=== PATIENT | female | born 1950 | race Caucasian/White ===

== ENCOUNTER 2024-09-24 02:46 | Day surgery (SDC) | payer MEDICARE, OTHER, SELFPAY ==
--- NOTE | 2024-09-18 13:58 | PM.IMHP ---
H&P: HPI History of Present Illness Date/Time: 09/18/24 13:58 Chief Complaint: urge incontinence Narrative: successful trial of sacral neuromodulation. Presents for permanent implantation Review of Systems Review of Systems: All systems reviewed & are unremarkable except as noted in HPI and below Exam Narrative: no acute distress normal breathing alert and oriented x3 Assessment and Plan Assessment and plan (1) Urge incontinence: Code(s): N39.41 - Urge incontinence Status: Acute Assessment and Plan: placement of sacral neurostimulator /InterStim
[2024-09-20 16:06] VITALS: BMI 42.3
--- NOTE | 2024-09-20 16:23 | PC.NURSE ---
Report to the Outpatient Waiting Room, entrance under the green pavilion located off [facility], at time ___6:45AM____ on date ___09/24/24____. Planned Procedure Time: ___8:45AM .? Time changes happen often and if your time is changed the preop area will call you the afternoon before. - You and your visitor will be asked to self-screen and do not enter if you have any COVID symptoms. Please call surgeon if you need to reschedule. - A mask is optional within the hospital at this time. Patients may have clear liquids (water, carbonated beverages, clear teas, apple juice) until 3 hours prior to surgery (5:45AM) with a maximum of 20 ounces. - No food from midnight until time of surgery and no smoking. This includes no chewing gum, candy or mints. Take only the following medications with a SIP of water on the morning of surgery: __AMLODIPINE, METOPROLOL, SERTRALINE, LEFLUNOMIDE DO NOT STOP ANY OF YOUR OTHER PRESCRIPTION MEDICATIONS PRIOR TO SURGERY EXCEPT THE FOLLOWING Medications to discontinue per physician NONE Date to take last dose Please no make-up, nail zimbabwean, hairspray, perfume, deodorant, or body powder the day of surgery.? No jewelry (including any body piercings) or valuables the day of surgery, leave them at home.? Please take a shower or bath the night before, or the morning of, surgery with an antibacterial soap.? Wear comfortable, loose fitting clothing.? Children are encouraged to wear pajamas. - Jewelry must be removed prior to entering the operating room.? Rings and piercings that are not removed may be cut off. - The hospital will not accept responsibility for valuables.? - Please leave all valuables, including medications, at home the day of surgery. If you are going home after surgery, a licensed sales warehouse driver must drive you home.? - NO public transportation without another adult if you receive anesthesia. - We recommend that an adult stay with you for 24 hours following discharge. - We also recommend that you do not drive, make important decision, drink alcoholic beverages, or take any drugs that were not prescribed by your health care provider for at least 24 hours after your discharge time. For Pediatric surgeries, we recommend two adults accompany the child home. Follow any additional instructions given to you from your surgeon. Telephone instructions given to ____PATIENT and asked if any additional questions and then verbalized understanding. Patient advised to call surgeon office or pre surgery nurse liaison [phone] if any additional questions.
--- NOTE | ~2024-09-24 | XR_ITS ---
EXAMINATION: XR fluoroscopy no charge DATE: 09/24/2024 09:10 INDICATION: Neuro stimulator implant insertion. TECHNIQUE: 2 intraoperative fluoroscopic views of the pelvis were obtained. I was not present. Fluoro scopy exposure time was 43 seconds. COMPARISON: None. FINDINGS: There is no side marker. There is an electrode in an S3 neural foramen. IMPRESSION: 1. Electrode in an S3 neural foramen. Reviewed, dictated and finalized at location B. [employer]
--- NOTE | 2024-09-24 04:36 | P.HP_ITS ---
H&P: HPI History of Present Illness Date/Time: 09/24/24 04:36 Chief Complaint: * UUI Narrative: urge incont. successful interstim trial Review of Systems Review of Systems: All systems reviewed & are unremarkable except as noted in HPI and below [facility] Social History Social History Smoking packs per day: 0.2 Smoking cigarettes per day: 4.0 Years smoked: 4 Smoking pack-years: 0.80 Smoking status: Former smoker Tobacco type: cigarettes Smoking end date: 03/01/75 Living arrangements: with family [facility] Spiritual care concerns: No Meds Home Medications and Allergies Home Medications ?Medication ?Instructions ?Recorded ?Confirmed ?Type alendronate 70 mg tablet 70 mg PO WEEKLY 09/20/24 09/20/24 History amlodipine 10 mg tablet 10 mg PO .MORNING 09/20/24 09/20/24 History atorvastatin 40 mg tablet 40 mg PO DAILY 09/20/24 09/20/24 History cetirizine 10 mg tablet 10 mg PO DAILY 09/20/24 09/20/24 History leflunomide 10 mg tablet 10 mg PO DAILY 09/20/24 09/20/24 History losartan 50 mg tablet 50 mg PO DAILY 09/20/24 09/20/24 History methotrexate sodium 2.5 mg tablet 20 mg PO WEEKLY 09/20/24 09/20/24 History metoprolol tartrate 25 mg tablet 25 mg PO BID 09/20/24 09/20/24 History nabumetone 750 mg tablet 750 mg PO BID 09/20/24 09/20/24 History oxybutynin chloride 10 mg 10 mg PO DAILY 09/20/24 09/20/24 History tablet,extended release 24 hr sertraline 50 mg tablet 50 mg PO BID 09/20/24 09/20/24 History trazodone 50 mg tablet 50 mg PO HS 09/20/24 09/20/24 History Allergies Allergy/AdvReac Type Severity Reaction Status Date / Time No Known Allergies Allergy Verified 09/20/24 15:56 Exam Narrative: NAD A+O x3 normal breathing Assessment and Plan Assessment and plan (1) Urge incontinence: Code(s): N39.41 - Urge incontinence Status: Acute Assessment and Plan: interstim implant
--- NOTE | 2024-09-24 04:38 | WPDHPUPDATE1 ---
History and Physical Update Update Date/Time: 09/24/24 04:38 History and Physical has been reviewed, including an updated exam of the patient. There are NO changes in the patient's condition. Risks, benefits, and alternatives have been discussed and questions answered. Patient agrees to proceed with procedure.
--- OUTSIDE RECORDS SUMMARY | 2024-09-24 06:30 | XMS_ITS ---
Author Organization Unknown Address [address], [place] [phone] Phone Care Team Providers Care Ethylene Plant Operator Name Role Phone EUSEBIA MCGINNIS Attending Unavailable Social History Type Status Start Date End Date Code Code Syst em Smoking History Never smoker (Never Smoked) 491988855 SNOMED CT Sex Female Sexual Orientation Straight or Heterosexual 49773273 SNOMED CT Medications Medication Start Date End Date Route Frequency Dose Code Code System Medication Instructions Home Meds traZODone hydrochloride 50MG Oral Tablet 08/07/2018 Unknown Daily 1 TABLET 880350 RxNorm 1 TABLET Daily Oxybutynin 5MG Oral Tablet 05/22/2020 Unknown ORAL Daily 1 TABLET 959377 RxNorm 1 TABLET ORAL Daily Methotrexate Sodium 2.5MG Oral Tablet 06/19/2020 08/06/20 21 By mouth Once a week 8 TABLET 785138 RxNorm TAKE 8 TABLETS ONCE A WEEK Leflunomide 20MG Oral Tablet 08/07/2020 08/06/20 21 By mouth Daily 1 TABLET 318724 RxNorm TAKE 1 TABLET DAILY Nabumetone 750MG Oral Tablet 10/23/2020 Unknown By Mouth Twice a day 1 TABLET 441708 RxNorm 1 TABLET By Mouth Twice a day Atorvastatin Calcium 40MG Oral Tablet 02/05/2021 Unknown By Mouth Daily 1 TABLET 446025 RxNorm 1 TABLET By Mouth Daily amLODIPine Besylate 5MG Oral Tablet 02/05/2021 Unknown By Mouth Daily 1 TABLET 003158 RxNorm 1 TABLET By Mouth Daily Alendronate Sodium 70MG Oral Tablet 02/05/2021 Unknown Daily 1 TABLET 869141 RxNorm 1 TABLET Daily Sertraline HCl 100MG Oral Tablet 02/05/2021 Unknown Daily 1 TABLET 886522 RxNorm 1 TABLET Daily Folic Acid 1MG Oral Tablet 02/13/2021 02/16/20 22 By mouth Daily 1 TABLET 290388 RxNorm TAKE 1 TABLET DAILY Orencia Pre-Filled Syringe 125MG/1ML Subcutaneous Solution 05/15/2021 01/20/20 22 SUBCUT ANEOUS ONCE WEEKLY 125 MILLIGRAMS 2544664 RxNorm INJECT 125 MILLIGRAMS SUBCUTANEOU S ONCE WEEKLY Methotrexate Sodium 2.5MG Oral Tablet 08/06/2021 02/16/20 22 By mouth Once a week 8 TABLET 031065 RxNorm TAKE 8 TABLETS ONCE A WEEK Leflunomide 20MG Oral Tablet 08/06/2021 02/16/20 22 By mouth Daily 1 TABLET 710484 RxNorm TAKE 1 TABLET DAILY Folic Acid 1MG Oral Tablet 02/15/2022 09/09/19 23 By mouth Daily 1 TABLET 803371 RxNorm TAKE 1 TABLET DAILY Leflunomide 20MG Oral Tablet 02/15/2022 05/13/20 22 By mouth Daily 1 TABLET 471905 RxNorm TAKE 1 TABLET DAILY Methotrexate Sodium 2.5MG Oral Tablet 02/15/2022 09/09/19 23 By mouth Once a week 8 TABLET 736118 RxNorm TAKE 8 TABLETS ONCE A WEEK Leflunomide 10MG Oral Tablet 05/13/2022 09/09/19 23 By Mouth Daily 1 TABLET 788820 RxNorm 1 TABLET By Mouth Daily Leflunomide 10MG Oral Tablet 09/09/2022 02/15/20 23 By Mouth Daily 2 TABLET 186890 RxNorm 2 TABLET By Mouth Daily Methotrexate Sodium 2.5MG Oral Tablet 09/09/2022 12/01/19 24 By mouth Once a week 8 TABLET 809645 RxNorm TAKE 8 TABLETS ONCE A WEEK Folic Acid 1MG Oral Tablet 09/09/2022 12/16/19 24 By mouth Daily 1 TABLET 125684 RxNorm TAKE 1 TABLET DAILY predniSONE 5MG Oral Tablet 09/09/2022 12/01/19 24 By Mouth 679359 RxNorm 4 TABLET By Mouth for 3 days3 TABLET By Mouth for 3 days2 TABLET By Mouth for 3 days1 TABLET By Mouth for 3 days Leflunomide 10MG Oral Tablet 02/14/2023 09/29/19 24 By Mouth Daily 2 TABLET 248085 RxNorm TAKE 2 TABLETS DAILY ( DOSAGE CHANGE ) Leflunomide 10MG Oral Tablet 02/14/2023 08/02/20 23 By Mouth Daily 2 TABLET 20520404 RxNorm TAKE 2 TABLETS DAILY ( DOSAGE CHANGE ) Leflunomide 10MG Oral Tablet 09/29/2023 12/01/19 24 By Mouth Daily 2 TABLET 877945 RxNorm TAKE 2 TABLETS DAILY Losartan Potassium 50MG Oral Tablet 12/01/2023 Unknown By Mouth As Directed 1 TABLET 929409 RxNorm 1 TABLET By Mouth As Directed Cetirizine 10MG Oral Tablet 12/01/2023 Unknown By Mouth As Directed 1 TABLET 5004949 RxNorm 1 TABLET By Mouth As Directed Vitamin D3 250 MCG Oral Tablet 12/01/2023 Unknown By Mouth As Directed 1 TABLET RxNorm 1 TABLET By Mouth As Directed Fish Oil 1200 MG Oral Capsule, Liquid Filled 12/01/2023 Unknown By Mouth As Directed 1 CAPSULE 275206 RxNorm 1 CAPSULE By Mouth As Directed Leflunomide 10MG Oral Tablet 12/01/2023 Unknown By Mouth Daily 1 TABLET 197659 RxNorm 1 TABLET By Mouth Daily Methotrexate Sodium 2.5MG Oral Tablet 12/01/2023 06/21/20 24 By mouth Once a week 8 TABLET 556079 RxNorm TAKE 8 TABLETS ONCE A WEEK Folic Acid 1MG Oral Tablet 12/16/2023 08/30/20 24 By mouth Daily 1 TABLET 321824 RxNorm TAKE 1 TABLET DAILY Methotrexate Sodium 2.5MG Oral Tablet 06/21/2024 Unknown By mouth Once a week 8 TABLET 623361 RxNorm TAKE 8 TABLETS ONCE A WEEK Folic Acid 1MG Oral Tablet 08/30/2024 Unknown By mouth Daily 1 TABLET 251665 RxNorm TAKE 1 TABLET DAILY Assessment You had the following problems: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 If you have left the hospital and have any questions, please contact your primary care physician. Reason For Referral No Data Found Problems Problem Start Date Resolved Date Status Code Code System RHEUMATOID ARTHRITIS active 42357961 SNOMED-CT OA active 572814006 SNOMED-CT RHEUMATOID ARTHRITIS WITH RHEUMATOID FACTOR, UNSPECIFIED active 444975556 SNOMED-CT CANCER OF THE BREAST 12/06/2016 resolved 47541273 9 SNOMED-CT PEPTIC ULCERS 12/06/2016 resolved 43767206 SNOME D-CT HYPERLIPIDEMIA 12/06/2016 resolved 93637232 SNOM ED-CT Allergies and Adverse Reactions Allergy Substance Reaction Severity Start Date Concern Status Co de Code System No Known Drug Allergies Active 897524786 SNOMED-CT Plan of Treatment Established Patient 15 10/11/2024 Encounters Encounter Diagnosis Start Date Code Code Sys tem Rheumatoid arthritis 05/31/2021 00017682 SNOMED- CT Personal Care Team Section Performer Name Performer Role Active Date Inactive Da jennifer
--- OUTSIDE RECORDS SUMMARY | 2024-09-24 06:30 | XMS_ITS ---
Author Organization Unknown Address [address], [place] [phone] Phone Care Team Providers Care Chief Minister Name Role Phone EUSEBIA MCGINNIS Attending Unavailable Social History Type Status Start Date End Date Code Code Syst em Smoking History Never smoker (Never Smoked) 804977966 SNOMED CT Sex Female Sexual Orientation Straight or Heterosexual 15688056 SNOMED CT Medications Medication Start Date End Date Route Frequency Dose Code Code System Medication Instructions Home Meds traZODone hydrochloride 50MG Oral Tablet 08/07/2018 Unknown Daily 1 TABLET 269015 RxNorm 1 TABLET Daily Oxybutynin 5MG Oral Tablet 05/22/2020 Unknown ORAL Daily 1 TABLET 119767 RxNorm 1 TABLET ORAL Daily Nabumetone 750MG Oral Tablet 10/23/2020 Unknown By Mouth Twice a day 1 TABLET 651843 RxNorm 1 TABLET By Mouth Twice a day Atorvastatin Calcium 40MG Oral Tablet 02/05/2021 Unknown By Mouth Daily 1 TABLET 066878 RxNorm 1 TABLET By Mouth Daily amLODIPine Besylate 5MG Oral Tablet 02/05/2021 Unknown By Mouth Daily 1 TABLET 270079 RxNorm 1 TABLET By Mouth Daily Alendronate Sodium 70MG Oral Tablet 02/05/2021 Unknown Daily 1 TABLET 137654 RxNorm 1 TABLET Daily Sertraline HCl 100MG Oral Tablet 02/05/2021 Unknown Daily 1 TABLET 932447 RxNorm 1 TABLET Daily Losartan Potassium 50MG Oral Tablet 12/01/2023 Unknown By Mouth As Directed 1 TABLET 434952 RxNorm 1 TABLET By Mouth As Directed Cetirizine 10MG Oral Tablet 12/01/2023 Unknown By Mouth As Directed 1 TABLET 5942483 RxNorm 1 TABLET By Mouth As Directed Vitamin D3 250 MCG Oral Tablet 12/01/2023 Unknown By Mouth As Directed 1 TABLET RxNorm 1 TABLET By Mouth As Directed Fish Oil 1200 MG Oral Capsule, Liquid Filled 12/01/2023 Unknown By Mouth As Directed 1 CAPSULE 116662 RxNorm 1 CAPSULE By Mouth As Directed Leflunomide 10MG Oral Tablet 12/01/2023 Unknown By Mouth Daily 1 TABLET 901440 RxNorm 1 TABLET By Mouth Daily Methotrexate Sodium 2.5MG Oral Tablet 12/01/2023 4 By mouth Once a week 8 TABLET 226457 RxNorm TAKE 8 TABLETS ONCE A WEEK Folic Acid 1MG Oral Tablet 12/16/2023 4 By mouth Daily 1 TABLET 411091 RxNorm TAKE 1 TABLET DAILY Methotrexate Sodium 2.5MG Oral Tablet 06/21/2024 Unknown By mouth Once a week 8 TABLET 251352 RxNorm TAKE 8 TABLETS ONCE A WEEK Folic Acid 1MG Oral Tablet 08/30/2024 Unknown By mouth Daily 1 TABLET 944089 RxNorm TAKE 1 TABLET DAILY Assessment You [...] Status Code Code System RHEUMATOID ARTHRITIS active 85022073 SNOMED-CT OA active 437030632 SNOMED-CT RHEUMATOID ARTHRITIS WITH RHEUMATOID FACTOR, UNSPECIFIED active 679991520 SNOMED-CT CANCER OF THE BREAST 12/06/2016 resolved 90713434 9 SNOMED-CT PEPTIC ULCERS 12/06/2016 resolved 53640309 SNOME D-CT HYPERLIPIDEMIA 12/06/2016 resolved 36874142 SNOM ED-CT Allergies and Adverse Reactions Allergy Substance Reaction Severity Start Date Concern Status Co de Code System No Known Drug Allergies Active 379617927 SNOMED-CT Plan of Treatment Established Patient 15 10/11/2024 Encounters Encounter Diagnosis Start Date Code Code Sys tem Rheumatoid arthritis 02/13/2024 32613445 SNOMED- CT Personal Care Team Section Performer Name Performer Role Active Date Inactive Yaakov rodriguez
--- OUTSIDE RECORDS SUMMARY | 2024-09-24 06:30 | XMS_ITS ---
Author Organization Unknown Address [address] [place] [phone] Phone Care Team Providers Care Protection Specialist Name Role Phone EUSEBIA MCGINNIS Attending Unavailable DEXTER TSAI Primary Unavailable Immunization Immunization Date Status Additional Notes Code Code System Influenza, split virus, trivalent, preservative 06/01/2014 Completed 141 CVX MMR 06/12/1993 Completed 03 CVX Pneumococcal conjugate PCV 13 10/04/2015 Completed 133 CVX Tdap 09/01/2008 Completed 115 CVX COVID-19, mRNA, LNP-S, PF, 3 0 mcg/0.3 mL dose 11/23/2020 Completed 208 CVX COVID-19, mRNA, LNP-S, PF, 3 0 mcg/0.3 mL dose 11/02/2020 Completed 208 CVX Influenza, adjuvanted, quadrivalent, PF 06/15/2020 Completed 205 CVX Influenza, high-dose, quadrivalent, PF 06/24/2023 Completed 197 CVX Influenza, high-dose, quadrivalent, PF 06/22/2022 Completed 197 CVX Influenza, high-dose, quadrivalent, PF 05/28/2021 Completed 197 CVX zoster recombinant 12/28/2018 Completed 187 CVX zoster recombinant 09/22/2018 Completed 187 CVX Influenza, split virus, quadrivalent, PF 06/01/2012 Completed 150 CVX Influenza, split virus, trivalent, preservative 06/20/2017 Completed 141 CVX Influenza, split virus, trivalent, preservative 06/01/2013 Completed 141 CVX Influenza, split virus, trivalent, preservative 06/01/2016 Completed 141 CVX Influenza, high-dose, trivalent, PF 05/19/2024 Completed 135 CVX Influenza, high-dose, trivalent, PF 06/07/2019 Completed 135 CVX Influenza, high-dose, trivalent, PF 06/15/2018 Completed 135 CVX zoster live 05/19/2012 Completed 121 CVX Tdap 01/08/2021 Completed 115 CVX Tdap 12/30/2020 Completed 115 CVX COVID-19, mRNA, LNP-S, bivalent, PF, 30 mcg/0.3 mL dose 06/22/2022 Completed 300 CVX Pneumococcal conjugate PCV20 , polysaccharide [id number] conjugate, adjuvant, PF 05/09/2022 Completed 216 CVX COVID-19, mRNA, LNP-S, PF, 3 0 mcg/0.3 mL dose 12/20/2021 Completed 208 CVX COVID-19, mRNA, LNP-S, PF, 3 0 mcg/0.3 mL dose 06/25/2021 Completed 208 CVX influenza, unspecified formulation 06/22/2019 Completed 88 CVX pneumococcal polysaccharide PPV23 07/21/2018 Completed 33 CVX RSV, recombinant, protein subunit RSVpreF, adjuvant reconstituted, 0.5 mL, PF 03/23/2024 Completed 303 CV X Social History Type Status Start Date End Date Code Code Syst em Smoking History Never smoker (Never Smoked) 878965665 SNOMED CT Smoking History Former smoker 12/06/197040[address] Sex Female Sexual Orientation Straight or Heterosexual 56085567 SNOMED CT Vital Signs Vital Sign Value Unit [facility] Value [facility] Unit Date/Time Recent/Initial? Code Code System Body Mass Index 41.88 kg/m2 02/16/2024 08:48 Initial 00134 -5 LOINC Systolic Blood Pressure 144 mm[Hg] 02/16/2024 08:48 Initial 8480- 6 LOINC Diastolic Blood Pressure 86 mm[Hg] 02/16/2024 08:48 Initial 8462- 4 LOINC Body Surface Area 2.13 m2 02/16/2024 08:48 Initial 3140- 1 LOINC Height 157.480 0 cm 62.00 in 02/16/2024 08:48 Initial 8302- 2 LOINC O2 Saturation 95 % 2023 08:48 Initial 23588 -5 LOINC Pulse 80.0 /min 02/16/2024 08:48 Initial 8867- 4 LOINC Temperature 36.6 Catarina 97.9 F 02/16/20 08:48 Initial 8310- 5 LOINC Weight 103.87 kg 229.00 lbs 02/16/2024 08:48 Initial 46886 -7 [facility] Medications Medication Start Date End Date Route Frequency Dose Code Code System Medication Instructions Home Meds traZODone hydrochloride 50MG Oral Tablet 08/07/2018 Unknown Daily 1 TABLET 565477 RxNorm 1 TABLET Daily Oxybutynin 5MG Oral Tablet 05/22/2020 Unknown ORAL Daily 1 TABLET 085280 RxNorm 1 TABLET ORAL Daily Nabumetone 750MG Oral Tablet 10/23/2020 Unknown By Mouth Twice a day 1 TABLET 863484 RxNorm 1 TABLET By Mouth Twice a day Atorvastatin Calcium 40MG Oral Tablet 02/05/2021 Unknown By Mouth Daily 1 TABLET 827640 RxNorm 1 TABLET By Mouth Daily amLODIPine Besylate 5MG Oral Tablet 02/05/2021 Unknown By Mouth Daily 1 TABLET 507183 RxNorm 1 TABLET By Mouth Daily Alendronate Sodium 70MG Oral Tablet 02/05/2021 Unknown Daily 1 TABLET 768580 RxNorm 1 TABLET Daily Sertraline HCl 100MG Oral Tablet 02/05/2021 Unknown Daily 1 TABLET 017065 RxNorm 1 TABLET Daily Losartan Potassium 50MG Oral Tablet 12/01/2023 Unknown By Mouth As Directed 1 TABLET 390591 RxNorm 1 TABLET By Mouth As Directed Cetirizine 10MG Oral Tablet 12/01/2023 Unknown By Mouth As Directed 1 TABLET 6442016 RxNorm 1 TABLET By Mouth As Directed Vitamin D3 250 MCG Oral Tablet 12/01/2023 Unknown By Mouth As Directed 1 TABLET RxNorm 1 TABLET By Mouth As Directed Fish Oil 1200 MG Oral Capsule, Liquid Filled 12/01/2023 Unknown By Mouth As Directed 1 CAPSULE 572013 RxNorm 1 CAPSULE By Mouth As Directed Leflunomide 10MG Oral Tablet 12/01/2023 Unknown By Mouth Daily 1 TABLET 765568 RxNorm 1 TABLET By Mouth Daily Methotrexate Sodium 2.5MG Oral Tablet 12/01/2023 4 By mouth Once a week 8 TABLET 970909 RxNorm TAKE 8 TABLETS ONCE A WEEK Folic Acid 1MG Oral Tablet 12/16/2023 4 By mouth Daily 1 TABLET 229321 RxNorm TAKE 1 TABLET DAILY Methotrexate Sodium 2.5MG Oral Tablet 06/21/2024 Unknown By mouth Once a week 8 TABLET 241205 RxNorm TAKE 8 TABLETS ONCE A WEEK Folic Acid 1MG Oral Tablet 08/30/2024 Unknown By mouth Daily 1 TABLET 969967 RxNorm TAKE 1 TABLET DAILY Assessment You had the following problems: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 Rheumatoid Arthritis - mod to severe at baseline - off Orencia d/t recurrent skin cancers. - on MTX 20mg per week + Arava 20mg per day - we decreased arava to 10mg/d - due to increased watcher [employer] long goods hepatotoxic risk with this combination - tolerating well so far - labs required q3m, no toxicity seen - seeing heme for elevated wbc - inflammation remains elevated but not a candidate for biologics d/t skin CA - Referral to orthopedics for L hand tenosynovitis 2. Knee DJD - s/p L TKR January 2023 RTC 3 -4 mos. Labs q3m. All of the patient's questions and concerns were addressed. Hospital Discharge Instructions Should you have any questions prior to discharge, please contact a member of your healthcare team. If you have left the hospital and have any questions, please contact your primary care physician. Reason For Referral No Data Found Problems Problem Start Date Resolved Date Status Code Code System RHEUMATOID ARTHRITIS active 81142094 SNOMED-CT OA active 283665161 SNOMED-CT RHEUMATOID ARTHRITIS WITH RHEUMATOID FACTOR, UNSPECIFIED active 449618084 SNOMED-CT CANCER OF THE BREAST 12/06/2016 resolved 48739960 9 SNOMED-CT PEPTIC ULCERS 12/06/2016 resolved 88118453 SNOME D-CT HYPERLIPIDEMIA 12/06/2016 resolved 74392265 SNOM ED-CT Allergies and Adverse Reactions Allergy Substance Reaction Severity Start Date Concern Status Co de Code System No Known Drug Allergies Active 783217168 SNOMED-CT Plan of Treatment Established Patient 15 10/11/2024 Encounters Encounter Diagnosis Start Date Code Code Sys tem Rheumatoid arthritis 02/16/2024 00976671 SNOMED- CT Personal Care Team Section Performer Name Performer Role Active Date Inactive Da jennifer
--- OUTSIDE RECORDS SUMMARY | 2024-09-24 06:30 | XMS_ITS | Data Portability ---
Author Organization [place] - [facility], [facility] Address [address] [place] [address] Care Team Providers Care Labor Relations Analyst Name Role Phone THA CARPIO Primary Care Provider THA CARPIO Referring Provider QAMAR YSUUF Jig Mill Operator GEORGINA KERR Net Developer [facility] Therapeutic Riding Instructor [phone] MIGDALIA LAWS Yarn Inspector NELLIE BECK Primary Care Provider [phone] ADRIANA ROBBINS Process Manager Assessment Encounter Date Assessment Date Assessment LastModified by Organization Details LastModified Time 09/18/2023 09/18/2023 I attest that either myself or a member of my physician group provided supervision of the services rendered. Either myself or a member of my physician group was available in the office suite to render assistance, if needed. [email or web address] Not available 09/18/2023 10:13:28 Plan of Treatment Reminders Order Date Submit Date Provider Last Modified By Organization Details Last Modified Time Details Appointments EST 20 2024 10:40A Justin BECK MD Not available Not available Not available Lab HbA1c (hemoglob in A1c), blood 2023 024 [facility] Registration Dept[facility] [address] [place] [address], [address], 11/25/2023 11:51:47 lipid panel w/ direct LDL, serum 2023 024 [facility] Registration Dept[facility] [address] [facility], [place], [address], 11/25/2023 11:51:27 vitamin D, 25-hydrox y, total, serum 2023 024 [facility] Registration [facility] [address] [facility], [place], [address], 11/26/2023 07:11:49 TSH, serum, reflex free T4 2023 024 [facility] Registration Dept., [address] [facility], [place], [address], 11/25/2023 10:10:43 CMP, serum or plasma 2023 024 [facility] Registration Dept[facility] [address] [place], [address], 11/25/2023 11:51:17 microalbu min/creat inine, mass ratio, urine 2023 024 [facility] Registration Dept., [address] [place], [address], 11/25/2023 10:10:43 HbA1c (hemoglob in A1c), blood 2023 024 [facility] Registration Dept[facility] [address] [place], [address], 05/19/2024 12:06:26 HbA1c (hemoglob in A1c), blood 2023 025 [email or web address] [facility] Registration Dept., [address] [facility], [place], [address], 05/19/2024 09:58:33 CMP, serum or plasma 2023 024 [facility] Registration Dept[facility] [address] [facility], [place], [address], 05/19/2024 12:44:03 microalbu min/creat inine, mass ratio, urine 2023 024 [facility] Registration Dept., [address] [place], [address], 05/19/2024 09:58:20 CMP, serum or plasma [address] Registration Dept[address] [place], [address], 05/19/2024 09:58:33 lipid panel w/ direct LDL, serum 2023 024 [facility] Registration Dept[facility] [address] [place] [address], [address], 05/19/2024 13:38:54 lipid panel w/ direct LDL, serum [address] Registration Dept[address] [place] [address], [address], 05/19/2024 09:58:33 TSH, serum, reflex free T4 2023 024 [facility] Registration Dept., [address] [place] [address], [address], 05/19/2024 09:58:20 Referral urologist referral 2023 024 LUCIAN Butcher MD, [address], [place] [address] [place] [address], [id number], 05/13/2024 12:09:41 Procedures None recorded. Surgeries None recorded. Imaging MAMMO, screening , digital, bilateral 2023 024 [email or web address] [facility] Registration Dept., [address] [place] [address], [address], 12/17/2023 08:37:45 MAMMO, screening , tomosynth esis, bilateral , w/ CAD 2023 025 [email or web address] 1 [facility] Registration Dept., [address] [place] [address], [address], 11/25/2023 11:38:45 Medication Orders oxybutyni n chloride ER 10 mg tablet,ex tended release 24 hr 2022 023 [facility], [address] [place] [address], [address], 02/12/2023 11:52:55 atorvasta tin 40 mg tablet 2023 024 [facility], [address] [place] [address], 06[address], 09/18/2023 12:15:00 losartan 50 mg tablet 2023 024 [id number], [address], [place], [id number], 11/25/2023 10:07:47 fluticaso ne propionat e 50 mcg/actua tion nasal spray,ute pension 2023 024 [email or web address] 77 [facility], [address] [place] [address], [address], 05/19/2024 09:09:28 cetirizin e 10 mg tablet 2023 024 [facility], [address] [place] [address], 07[address], 11/25/2023 10:07:41 losartan 50 mg tablet 2023 024 [id number], [address], [place], [id number], 05/19/2024 09:41:07 Patient TargetsNo targets recorded. Patient Instructions Encounter Date Encounter Id Patient Instructions Last Modified By Organization Details Last Modified Time 09/18/2023 [id number] depression screening* Not available 09/18/2023 12:15:00 alcohol misuse* Not available 09/18/2023 12:15:00 body mass index: care instructions Not available 09/18/2023 12:15:00 body mass index information Not available 09/18/2023 12:15:00 multi-dimensiona l health assessment questionnaire* Not available 09/18/2023 12:15:00 advance care planning: care instructions Not available 09/18/2023 12:15:00 advance directiv es: care instructions Not available 09/18/2023 12:15:00 care plan* Not available 09/18 12:15:00 Personalized Hea lt Plan and Screening Recommendations Advance Directives - Do you have one? Yes Advance Directives - Do we have your advance directive on file in your health record? Primary Prevention/Interven tion (prevents or decreases the chance of common diseases from occurring) Smoking Risk: Non Smoker Alcohol Misuse Screening: Negative Weight: Appropriate Overwei ght continue your current weight loss efforts try to lose 5% of your body weight try to lose 10% of your body weight Physical activity: minimum of 10-20 minutes of activity that causes mild breathlessness/day minimum of 20-30 minutes activity that causes mild breathlessness/day Nutrition: Good Average Refer to attached handout Heart-Healthy Diet: After Your Visit Fall Risk (screened today): Low Refer to attached handout Preventing Falls: After your Visit Vaccines Pneumococcal: Ordered Recommended today Recommended today, but you have declined No further needed Influenza: Chronic Disease Risks Stroke: Low Risk Intermediate Risk I have no recommendations Act sameera diagnosis, Continue current treatment plan Heart Attack: Low risk Intermediate Risk I have no recommendations Act sameera diagnosis, Continue current treatment plan Clogging of the Arteries: Low risk Intermediate Risk I have no recommendations Act sameera diagnosis, Continue current treatment plan Diabetes: Low Risk Intermediate Risk I have no recommendations Ref er to attached handout ? P re-diabetes: After Your Visit? Drastica lly limit sugar and products made with any type of flour (bread, pasta, cereal, cookies, crackers, etc.) Secondary Prevention/Interven tion (detects treatable diseases before they may cause symptoms, disability, or ) Breast Cancer Screening with mammogram: Your next mammogram: Ordered Cervical/Uterine/Ov emiliano Cancer Screening: Osteoporosis Screening: Date Screening Last Performed: 09/12/22 Colon Cancer Screening: Colonoscopy Date Screening Last Performed: 12/08/15 Eye Disease Screening: Ordered Recommended today Dementia Risk: Low I have no recommendations Depression Screening: Negative [email or web address] Not available 09/18/2023 11:23:21 HRA reviewed felipa akbar patient, preventative screening scheduled provided to patient [email or web address] Not available 09/18/2023 10:15:41 11/25/2023 [id number] -- STOP lisinopril 20 mg twice daily as it may be making you cough more -- I ordered losartan 50 mg daily for blood pressure instead of lisinopril; start with 1 tab daily; if after a few days or week your BP is still too high, over 140/90 then increase to 2 tabs (100 mg) daily (or take a 50 mg twice daily) -- I ordered a nose spray and allergy pill for you to try as well -- consider follow up with your lung doctor -- labs will be done today -- try MiraLax powder daily for constipation -- follow up with me in 3-4 weeks to follow up on your blood pressure [email or web address] Not available 11/25/2023 10:10:09 Reason for Referral Urologist Referral for Urina ry incontinence Referring Physician: Nellie Beck, Family Medicine, Encounter Date: 11/25/2023 Results Created Date Observation Date Name Description Value Unit Range Abnormal Flag Note LastModifiedBy Organization Detail LastModifiedTime 07/23/20 23 07/23/2023 COMP METAB OLIC PNL glucose 110 mg/dL 74-106 high Not Available [facility] [address] [place] [address], [id number], 07/23/2023 11:22:46 07/23/20 23 07/23/2023 COMP METAB OLIC PNL BUN 13 mg/dL 7-18 Not Available [facility] [address] [place] [address], [address], 07/23/2023 11:22:46 07/23/20 23 07/23/2023 COMP METAB OLIC PNL sodium 137 mmol/ L 136-14 5 Not Available [facility] [address] [place] [address], 9[address], 07/23/2023 11:22:46 07/23/20 23 07/23/2023 COMP METAB OLIC PNL K 4.2 mmol/ L 3.5-5. 1 Not Available [facility] [address] [place] [address] [place], [address], 07/23/2023 11:22:46 07/23/20 23 07/23/2023 COMP METAB OLIC PNL chloride 102 mmol/ L 98-107 Not Available [facility] [address] [place] [address], [address], 07/23/2023 11:22:46 07/23/20 23 07/23/2023 COMP METAB OLIC PNL tot CO2 25 mmol/ L 21.0-3 2.0 Not Available [facility] [address] [place] [address], [address]79[address], 07/23/2023 11:22:46 07/23/20 23 07/23/2023 COMP METAB OLIC PNL calcium 9.7 mg/dL 8.5-10 .1 Not Available [facility] [address] [place] [address], [address], 07/23/2023 11:22:46 07/23/20 23 07/23/2023 COMP METAB OLIC PNL creatinine 0.6 mg/dL 0.6-1. 0 Not Available [facility] [address] [place] [address], 58483, 07/23/2023 11:22:46 07/23/20 23 07/23/2023 COMP METAB OLIC PNL alkaline phos 74 U/L 46-116 Not Available [facility] [address] [place] [address], [address], 07/23/2023 11:22:46 07/23/20 23 07/23/2023 COMP METAB OLIC PNL AST (SGOT) 13 U/L 15-37 low Not Available [facility] [address] [place] [address], [address], 07/23/2023 11:22:46 07/23/20 23 07/23/2023 COMP METAB OLIC PNL albumin 3.1 g/dL 3.4-5. 0 low Not Available [facility] [address] [place] [address], [place], [address], 07/23/2023 11:22:46 07/23/20 23 07/23/2023 COMP METAB OLIC PNL globulin 4.2 2.0-4. 8 Not Available [facility] [address] [place] [address], [place], [address], 07/23/2023 11:22:46 07/23/20 23 07/23/2023 COMP METAB OLIC PNL total protein 7.3 g/dL 6.4-8. 2 Not Available [facility] [address] [place] [address], [place], [address], 07/23/2023 11:22:46 07/23/20 23 07/23/2023 COMP METAB OLIC PNL A/G ratio 0.7 0.7-3. 5 Not Available [facility] [address] [place] [address], [place], [address], 07/23/2023 11:22:46 07/23/20 23 07/23/2023 COMP METAB OLIC PNL ALT (SGPT) 18 U/L 14-59 Not Available [facility] [address] [place] [address], [address], 07/23/2023 11:22:46 07/23/20 23 07/23/2023 COMP METAB OLIC PNL total bilirubin 0.3 mg/dL 0.2-1. 1 Not Available [facility] [address] [place] [address], [place], [address], 07/23/2023 11:22:46 07/23/20 23 07/23/2023 COMP METAB OLIC PNL GFR >60 60- Refer ence Range : [place] ge GFR Healt hy Adult : >60 mL/mi n/1.7 3 m2 Chron ic Kidne y Disea se: 15-60 mL/mi n/1.7 3 m2 Kidne y Failu re: <15/m L/min /1.73 m2 www.n iddk. nih.g ov MDRD study equat ion hasn' t been valid ated in child crista <18 yrs of age, pregn ant women , the elder ly >85 yrs of age, or in some racia l or ethni c subgr oups, suc as Hispa nics. Outsi de the valid ated nora eters , estim ated GFR is less accur ate requi ring clini archie judgm ent on a case by case basis . Clini archie inter preta tion for other races and ages must be made by the clini augustine . Futhe rmore , any of th e limit ation s with the use of serum creat inine relat ed to nutri isiah l statu s o r medic ation usage hasn' t accou nted for the MDRD Study equat ion. For perso ns < 18 yrs of age, a pedia tric GFR calcu lator can be locat ed on the [facility] websi te: https ://benita w.kid tae.o rg/pr ofess ional s/kdo qi/gf r_cal culat or Not Available [facility] [address] [place] [address], [address], 07/23/2023 11:22:46 07/23/20 23 07/23/2023 COMP METAB OLIC PNL agap 14.0 mmol/ L 5.0-19 .0 Not Available [facility] [address] [place] [address], 959[address], 07/23/2023 11:22:46 07/23/20 23 07/23/2023 C-JARED CTIVE PROTE IN QUANT CRP quantatative 0.8 mg/dL 0.5-0. 9 Not Available [address], [address], 07/23/2023 11:22:55 07/23/20 23 07/23/2023 CBC WITH AUTOM ATED DIFF WBC 11.0 10 4.0-10 .0 high Not Available [address], [address], 07/23/2023 11:26:03 07/23/20 23 07/23/2023 CBC WITH AUTOM ATED DIFF RBC 4.44 10 3.90-5 .22 Not Available [facility] [address] [place] [address], 59105, 07/23/2023 11:26:03 07/23/20 23 07/23/2023 CBC WITH AUTOM ATED DIFF HGB 13.3 g/dL 11.2-1 5.7 Not Available [facility] [address] [place] [address], 26525, 07/23/2023 11:26:03 07/23/20 23 07/23/2023 CBC WITH AUTOM ATED DIFF HCT 42.2 % 34.1-4 4.9 Not Available [facility] [address] [place] [address], 00887, 07/23/2023 11:26:03 07/23/20 23 07/23/2023 CBC WITH AUTOM ATED DIFF MCV 95.0 fL 82.0-9 9.0 Not Available [facility] [address] [place] [address], 21474, 07/23/2023 11:26:03 07/23/20 23 07/23/2023 CBC WITH AUTOM ATED DIFF MCH 30.0 pg 29.0-3 4.5 Not Available [facility] [address] [place] [address], 61304, 07/23/2023 11:26:03 07/23/20 23 07/23/2023 CBC WITH AUTOM ATED DIFF MCHC 31.5 g/dL 32.5-3 5.5 low Not Available [facility] [address] [place] [address], 52547, 07/23/2023 11:26:03 07/23/20 23 07/23/2023 CBC WITH AUTOM ATED DIFF RDW 14.7 11.5-1 4.5 high Not Available [facility] [address] [place] [address], 21931, 07/23/2023 11:26:03 07/23/20 23 07/23/2023 CBC WITH AUTOM ATED DIFF platelet 232 10 180-37 0 Not Available [facility] [address] [place] [address], 10639, 07/23/2023 11:26:03 07/23/20 23 07/23/2023 CBC WITH AUTOM ATED DIFF MPV 10.60 fL 9.0-12 .4 Not Available [facility] [address] [place] [address], 86246, 07/23/2023 11:26:03 07/23/20 23 07/23/2023 CBC WITH AUTOM ATED DIFF dominic% 71.5 % 34.0-7 1.1 high Not Available [facility] [address] [place] [address], 45739, 07/23/2023 11:26:03 07/23/20 23 07/23/2023 CBC WITH AUTOM ATED DIFF lym% 13.4 % 19-52 low Not Available [facility] [address] [place] [address], 23908, 07/23/2023 11:26:03 07/23/20 23 07/23/2023 CBC WITH AUTOM ATED DIFF mon% 9.60 % 5-13 Not Available [facility] [address] [place] [address], 78611, 07/23/2023 11:26:03 07/23/20 23 07/23/2023 CBC WITH AUTOM ATED DIFF eos% 4.50 % 0-6 Not Available [facility] [address] [place] [address], 34743, 07/23/2023 11:26:03 07/23/20 23 07/23/2023 CBC WITH AUTOM ATED DIFF bas% 0.50 % 0-2 Not Available [facility] [address] [place] [address], 86490, 07/23/2023 11:26:03 07/23/20 23 07/23/2023 CBC WITH AUTOM ATED DIFF Ig% 0.5 0-1.0 Not Available [facility] [address] [place] [address], 65647, 07/23/2023 11:26:03 07/23/20 23 07/23/2023 CBC WITH AUTOM ATED DIFF dominic# 7.87 10 1.5-7 high Not Available [facility] [address] [place] [address], 19567, 07/23/2023 11:26:03 07/23/20 23 07/23/2023 CBC WITH AUTOM ATED DIFF lym# 1.5 10 1.18-4 .00 Not Available [facility] [address] [place] [address], 68594, 07/23/2023 11:26:03 07/23/20 23 07/23/2023 CBC WITH AUTOM ATED DIFF mon# 1.1 10 0.00-0 .90 high Not Available [facility] [address] [place] [address], 76474, 07/23/2023 11:26:03 07/23/20 23 07/23/2023 CBC WITH AUTOM ATED DIFF eos# 0.5 10 0.00-0 .60 Not Available [facility] [address] [place] [address], 62328, 07/23/2023 11:26:03 07/23/20 23 07/23/2023 CBC WITH AUTOM ATED DIFF bas# 0.1 10 0.00-0 .10 Not Available [facility] [address] [place] [address], 41913, 07/23/2023 11:26:03 07/23/20 23 07/23/2023 CBC WITH AUTOM ATED DIFF Ig# 0.06 0-0.05 high Not Available [facility] [address] [place] [address], 03359, 07/23/2023 11:26:03 07/23/20 23 07/23/2023 LIPID PNL cholesterol 159 mg/dL 120-20 0 Not Available [facility] [address] [place] [address], 64414, 07/23/2023 11:34:16 07/23/20 23 07/23/2023 LIPID PNL triglyceride s 226 mg/dL 0-150. 0 high Not Available [facility] [address] [place] [address], 72812, 07/23/2023 11:34:16 07/23/20 23 07/23/2023 LIPID PNL HDL cholesterol 39 mg/dL 40-60 low Not Available [facility] [address] [place] [address], 09142, 07/23/2023 11:34:16 07/23/20 23 07/23/2023 LIPID PNL LDL 74.8 mg/dL 0-130 Not Available [facility] [address] [place] [address], 39987, 07/23/2023 11:34:16 07/23/20 23 07/23/2023 SED RATE AUTOM ATED sed rate 22 mm/HR 0-40 Not Available [facility] [address] [place] [address], 84734, 07/23/2023 11:49:05 11/25/19 24 11/25/2023 COMP METAB OLIC PNL glucose 121 mg/dL 74-106 high Not Available [facility] [address] [place] [address], 77652, 11/25/2023 11:51:17 11/25/19 24 11/25/2023 COMP METAB OLIC PNL BUN 15 mg/dL 7-18 Not Available [facility] [address] [place] [address], 73102, 11/25/2023 11:51:17 11/25/19 24 11/25/2023 COMP METAB OLIC PNL sodium 140 mmol/ L 136-14 5 Not Available [facility] [address] [place] [address], 31433, 11/25/2023 11:51:17 11/25/19 24 11/25/2023 COMP METAB OLIC PNL K 4.7 mmol/ L 3.5-5. 1 Not Available [facility] [address] [place] [address], 57751, 11/25/2023 11:51:17 11/25/19 24 11/25/2023 COMP METAB OLIC PNL chloride 105 mmol/ L 98-107 Not Available [facility] [address] [place] [address], 79603, 11/25/2023 11:51:17 11/25/19 24 11/25/2023 COMP METAB OLIC PNL tot CO2 26 mmol/ L 21.0-3 2.0 Not Available [facility] [address] [place] [address], 89683, 11/25/2023 11:51:17 11/25/19 24 11/25/2023 COMP METAB OLIC PNL calcium 10.2 mg/dL 8.5-10 .1 high Not Available [facility] [address] [place] [address], 72958, 11/25/2023 11:51:17 11/25/19 24 11/25/2023 COMP METAB OLIC PNL creatinine 0.7 mg/dL 0.6-1. 0 Not Available [address], [address], 11/25/2023 11:51:17 11/25/19 24 11/25/2023 COMP METAB OLIC PNL alkaline phos 74 U/L 46-116 Not Available [facility] [address] [place] [address], 21811, 11/25/2023 11:51:17 11/25/19 24 11/25/2023 COMP METAB OLIC PNL AST (SGOT) 17 U/L 15-37 Not Available [facility] [address] [place] [address], 57386, 11/25/2023 11:51:17 11/25/19 24 11/25/2023 COMP METAB OLIC PNL albumin 3.3 g/dL 3.4-5. 0 low Not Available [facility] [address] [place] [address], 85628, 11/25/2023 11:51:17 11/25/19 24 11/25/2023 COMP METAB OLIC PNL globulin 4.4 2.0-4. 8 Not Available [facility] [address] [place] [address], 65903, 11/25/2023 11:51:17 11/25/19 24 11/25/2023 COMP METAB OLIC PNL total protein 7.7 g/dL 6.4-8. 2 Not Available [facility] [address] [place] [address], 22700, 11/25/2023 11:51:17 11/25/19 24 11/25/2023 COMP METAB OLIC PNL A/G ratio 0.8 0.7-3. 5 Not Available [facility] [address] [place] [address], 04357, 11/25/2023 11:51:17 11/25/19 24 11/25/2023 COMP METAB OLIC PNL ALT (SGPT) 23 U/L 14-59 Not Available [facility] [address] [place] [address], 51070, 11/25/2023 11:51:17 11/25/19 24 11/25/2023 COMP METAB OLIC PNL total bilirubin 0.4 mg/dL 0.2-1. 1 Not Available [facility] [address] [place] [address], 57340, 11/25/2023 11:51:17 11/25/19 24 11/25/2023 COMP METAB OLIC PNL GFR >60 60- Refer ence Range : [place] ge GFR Healt hy Adult : >60 mL/mi n/1.7 3 m2 Chron ic Kidne y Disea se: 15-60 mL/mi n/1.7 3 m2 Kidne y Failu re: <15/m L/min /1.73 m2 www.n iddk. nih.g ov MDRD study equat ion hasn' t been valid ated in child crista <18 yrs of age, pregn ant women , the elder ly >85 yrs of age, or in some racia l or ethni c subgr oups, suc as Hispa nics. Outsi de the valid ated nora eters , estim ated GFR is less accur ate requi ring clini archie judgm ent on a case by case basis . Clini archie inter preta tion for other races and ages must be made by the clini augustine . Futhe rmore , any of th e limit ation s with the use of serum creat inine relat ed to nutri isiah l statu s o r medic ation usage hasn' t accou nted for the MDRD Study equat ion. For perso ns < 18 yrs of age, a pedia tric GFR calcu lator can be locat ed on the [facility] websi te: https ://benita parker.bi strong.o rg/pr inoess ional s/kdo qi/gf r_cal culat or Not Available [facility] [address] [place] [address], 96180, 11/25/2023 11:51:17 11/25/19 24 11/25/2023 COMP METAB OLIC PNL agap 14.2 mmol/ L 5.0-19 .0 Not Available [facility] [address] [place] [address], 47859, 11/25/2023 11:51:17 11/25/19 24 11/25/2023 C-JARED CTIVE PROTE IN QUANT CRP quantatative 1.2 mg/dL 0.5-0. 9 high Not Available [facility] [address] [place] [address], 88451, 11/25/2023 11:51:21 11/25/19 24 11/25/2023 LIPID PNL cholesterol 153 mg/dL 120-20 0 Not Available [facility] [address] [place] [address], 56085, 11/25/2023 11:51:27 11/25/19 24 11/25/2023 LIPID PNL triglyceride s 229 mg/dL 0-150. 0 high Not Available [facility] [address] [place] [address], 29159, 11/25/2023 11:51:27 11/25/19 24 11/25/2023 LIPID PNL HDL cholesterol 36 mg/dL 40-60 low Not Available [address], [address], 11/25/2023 11:51:27 11/25/19 24 11/25/2023 LIPID PNL LDL 71.2 mg/dL 0-130 Not Available [facility] [address] [place] [address], 82836, 11/25/2023 11:51:27 11/25/19 24 11/25/2023 TSH WITH REFLE X TO FT4 TSH with reflex to free T4 3.54 uIU/m L 0.34-4 .82 Not Available [address], [address], 11/25/2023 11:51:32 11/25/19 24 11/25/2023 HEMOG LOBIN A1C (IN HOUSE ) hemoglobin A1C 6.3 % 4.5-6. 2 high Not Available [address], [address], 11/25/2023 11:51:47 11/25/1911/25/2023 SED RATE AUTOM ATED sed rate 67 mm/HR 0-40 high Not Available [address], 60720, 11/25/2023 12:00:57 11/25/19 24 11/26/2023 VITAM IN D, 25-HY DROXY vitamin D, 25-hydroxy 20.1 NG/mL 30.0-1 00.0 low Vitam in D defic iency has been defin ed by the Insti tute of Medic ine and an Endoc rine Socie ty pract ice guide line as a level of serum 25-OH vitam in D less than 20 ng/mL (1,2) . The Endoc rine Socie ty went on to furth er defin e vitam in D insuf ficie ncy as a level betwe en 21 and 29 ng/mL (2). 1. IOM (Inst itute of Medic ine). 2010. Dieta ry refer ence intak es for calci um and D. Gallo aguiar [place]: [employer] . 2. Jason hernández MF, Jenna valencia NC, Vishal off-F errwil i HORNE, et al. Evalu ation , treat ment, and preve ntion of vitam in D defic iency : an Endoc rine Socie ty clini archie pract ice guide line. JCEM. 2010; 96(7) :1911 -30. Perfo rmed at: - [facility] [address] [place] [address] Lab Direc tor: Carrillo padgett PhD, Phone : [phone] Not Available [facility] [address] [place] [address], 28583, 11/26/2023 07:11:49 03/23/20 24 03/23/2024 BASIC METAB O CA TOTA glucose 150 mg/dL 74-100 high Not Available [facility] [address] [place] [address], 03170, 03/23/2024 12:28:24 03/23/20 24 03/23/2024 BASIC METAB O CA TOTA BUN 12 mg/dL 7-17 Not Available [facility] [address] [place] [address], 64352, 03/23/2024 12:28:24 03/23/20 24 03/23/2024 BASIC METAB O CA TOTA sodium 139 mmol/ L 136-14 5 Not Available [facility] [address] [place] [address], 06237, 03/23/2024 12:28:24 03/23/20 24 03/23/2024 BASIC METAB O CA TOTA K 4.0 mmol/ L 3.5-5. 1 Not Available [facility] [address] [place] [address], 55556, 03/23/2024 12:28:24 03/23/20 24 03/23/2024 BASIC METAB O CA TOTA chloride 105 mmol/ L 98-107 Not Available [facility] [address] [place] [address], 04345, 03/23/2024 12:28:24 03/23/20 24 03/23/2024 BASIC METAB O CA TOTA tot CO2 24 mmol/ L 22-30 Not Available [facility] [address] [place] [address], 33610, 03/23/2024 12:28:24 03/23/20 24 03/23/2024 BASIC METAB O CA TOTA calcium 9.4 mg/dL 8.6-10 .3 Not Available [facility] [address] [place] [address], 49662, 03/23/2024 12:28:24 03/23/20 24 03/23/2024 BASIC METAB O CA TOTA creatinine 0.7 mg/dL 0.52-1 .04 Not Available [facility] [address] [place] [address], 96930, 03/23/2024 12:28:24 03/23/20 24 03/23/2024 BASIC METAB O CA TOTA GFR >60 60- Refer ence Range : [place] ge GFR Healt hy Adult : >60 mL/mi n/1.7 3 m2 Chron ic Kidne y Disea se: 15-60 mL/mi n/1.7 3 m2 Kidne y Failu re: <15/m L/min /1.73 m2 www.n iddk. nih.g ov MDRD study equat ion hasn' t been valid ated in child crista <18 yrs of age, pregn ant women , the elder ly >85 yrs of age, or in some racia l or ethni c subgr oups, suc as Hispa nics. Outsi de the valid ated nora eters , estim ated GFR is less accur ate requi ring clini archie judgm ent on a case by case basis . Clini archie inter preta tion for other races and ages must be made by the clini augustine . Futhe rmore , any of th e limit ation s with the use of serum creat inine relat ed to nutri isiah l statu s o r medic ation usage hasn' t accou nted for the MDRD Study equat ion. For perso ns < 18 yrs of age, a pedia tric GFR calcu lator can be locat ed on the [facility] websi te: https ://benita w.kid tae.o rg/pr ofess ional s/kdo qi/gf r_cal culat or Not Available [facility] [address] [place] [address], 48328, 03/23/2024 12:28:24 03/23/20 24 03/23/2024 BASIC METAB O CA TOTA agap 10.0 mmol/ L 5.0-19 .0 Not Available [facility] [address] [place] [address], 30848, 03/23/2024 12:28:24 04/02/20 24 04/02/2024 C-JARED CTIVE PROTE IN QUANT CRP quantatative 1.0 mg/dL 0.0-1. 0 Not Available [facility] [address] [place] [address], 99940, 04/02/2024 14:54:33 04/02/20 24 04/02/2024 COMP METAB OLIC PNL glucose 121 mg/dL 74-100 high Not Available [facility] [address] [place] [address], 64880, 04/02/2024 14:54:38 04/02/20 24 04/02/2024 COMP METAB OLIC PNL BUN 12 mg/dL 7-17 Not Available [facility] [address] [place] [address], 10181, 04/02/2024 14:54:38 04/02/20 24 04/02/2024 COMP METAB OLIC PNL sodium 138 mmol/ L 136-14 5 Not Available [facility] [address] [place] [address] [place], [address], 04/02/2024 14:54:38 04/02/20 24 04/02/2024 COMP METAB OLIC PNL K 4.2 mmol/ L 3.5-5. 1 Not Available [facility] [address] [place] [address], [place], [address], 04/02/2024 14:54:38 04/02/20 24 04/02/2024 COMP METAB OLIC PNL chloride 105 mmol/ L 98-107 Not Available [facility] [address] [place] [address], [place], [address], 04/02/2024 14:54:38 04/02/20 24 04/02/2024 COMP METAB OLIC PNL tot CO2 23 mmol/ L 22-30 Not Available [facility] [address] [place] [address], 14932, 04/02/2024 14:54:38 04/02/20 24 04/02/2024 COMP METAB OLIC PNL calcium 9.5 mg/dL 8.6-10 .3 Not Available [facility] [address] [place] [address], 98456, 04/02/2024 14:54:38 04/02/20 24 04/02/2024 COMP METAB OLIC PNL creatinine 0.7 mg/dL 0.52-1 .04 Not Available [facility] [address] [place] [address], 61836, 04/02/2024 14:54:38 04/02/20 24 04/02/2024 COMP METAB OLIC PNL alkaline phos 72 U/L 38-126 Not Available [facility] [address] [place] [address], 63573, 04/02/2024 14:54:38 04/02/20 24 04/02/2024 COMP METAB OLIC PNL AST (SGOT) 24 U/L 14-36 Not Available [facility] [address] [place] [address], 70505, 04/02/2024 14:54:38 04/02/20 24 04/02/2024 COMP METAB OLIC PNL albumin 3.8 g/dL 3.3-5. 0 Not Available [facility] [address] [place] [address], [place], [address], 04/02/2024 14:54:38 04/02/20 24 04/02/2024 COMP METAB OLIC PNL globulin 3.6 2.0-4. 8 Not Available [facility] [address] [place] [address], [place], [address], 04/02/2024 14:54:38 04/02/20 24 04/02/2024 COMP METAB OLIC PNL total protein 7.4 g/dL 6.3-8. 2 Not Available [facility] [address] [place] [address], 38637, 04/02/2024 14:54:38 04/02/20 24 04/02/2024 COMP METAB OLIC PNL A/G ratio 1.1 0.7-3. 5 Not Available [facility] [address] [place] [address], [place], [address], 04/02/2024 14:54:38 04/02/20 24 04/02/2024 COMP METAB OLIC PNL ALT (SGPT) 21 U/L 0-35 Not Available [facility] [address] [place] [address], 87122, 04/02/2024 14:54:38 04/02/20 24 04/02/2024 COMP METAB OLIC PNL total bilirubin 0.5 mg/dL 0.2-1. 3 Not Available [facility] [address] [place] [address], 57701, 04/02/2024 14:54:38 04/02/20 24 04/02/2024 COMP METAB OLIC PNL GFR >60 60- Refer ence Range : [place] GFR Healt hy Adult : >60 mL/mi n/1.7 3 m2 Chron ic Kidne y Disea se: 15-60 mL/mi n/1.7 3 m2 Kidne y Failu re: <15/m L/min /1.73 m2 www.n iddk. nih.g ov MDRD study equat ion hasn' t been valid ated in child crista <18 yrs of age, pregn ant women , the elder ly >85 yrs of age, or in some racia l or ethni c subgr oups, suc as Hispa nics. Outsi de the valid ated nora eters , estim ated GFR is less accur ate requi ring clini archie judgm ent on a case by case basis . Clini archie inter preta tion for other races and ages must be made by the clini augustine . Futhe rmore , any of th e limit ation s with the use of serum creat inine relat ed to nutri isiah l statu s o r medic ation usage hasn' t accou nted for the MDRD Study equat ion. For perso ns < 18 yrs of age, a pedia tric GFR calcu lator can be locat ed on the [facility] websi te: https ://benita w.bi escobary.o rg/pr ofess ional s/kdo qi/gf r_cal culat or Not Available [facility] [address] [place] [address], 62920, 04/02/2024 14:54:38 04/02/20 24 04/02/2024 COMP METAB OLIC PNL agap 9.0 mmol/ L 5.0-19 .0 Not Available [address], 61341, 04/02/2024 14:54:38 04/02/20 24 04/02/2024 CBC WITH AUTOM ATED DIFF WBC 14.4 10 4.0-10 .0 high Not Available [address], 31517, 04/02/2024 15:15:16 04/02/20 24 04/02/2024 CBC WITH AUTOM ATED DIFF RBC 4.48 10 3.90-5 .22 Not Available [address], 02863, 04/02/2024 15:15:16 04/02/20 24 04/02/2024 CBC WITH AUTOM ATED DIFF HGB 13.3 g/dL 11.2-1 5.7 Not Available [facility] [address] [place] [address], 42666, 04/02/2024 15:15:16 04/02/20 24 04/02/2024 CBC WITH AUTOM ATED DIFF HCT 41.6 % 34.1-4 4.9 Not Available [facility] [address] [place] [address], 62767, 04/02/2024 15:15:16 04/02/20 24 04/02/2024 CBC WITH AUTOM ATED DIFF MCV 92.9 fL 82.0-9 9.0 Not Available [facility] [address] [place] [address], 50074, 04/02/2024 15:15:16 04/02/20 24 04/02/2024 CBC WITH AUTOM ATED DIFF MCH 29.7 pg 29.0-3 4.5 Not Available [facility] [address] [place] [address], 04811, 04/02/2024 15:15:16 04/02/20 24 04/02/2024 CBC WITH AUTOM ATED DIFF MCHC 32.0 g/dL 32.5-3 5.5 low Not Available [facility] [address] [place] [address], 32949, 04/02/2024 15:15:16 04/02/20 24 04/02/2024 CBC WITH AUTOM ATED DIFF RDW 14.0 11.5-1 4.5 Not Available [facility] [address] [place] [address], 16040, 04/02/2024 15:15:16 04/02/20 24 04/02/2024 CBC WITH AUTOM ATED DIFF platelet 234 10 180-37 0 Not Available [facility] [address] [place] [address], 52269, 04/02/2024 15:15:16 04/02/20 24 04/02/2024 CBC WITH AUTOM ATED DIFF MPV 11.50 fL 9.0-12 .4 Not Available [facility] [address] [place] [address], [place], [address], 04/02/2024 15:15:16 04/02/2004/02/2024 CBC WITH AUTOM ATED DIFF dominic% 74.4 % 34.0-7 1.1 high Not Available [facility] [address] [place] [address], [place], [address], 04/02/2024 15:15:16 04/02/2004/02/2024 CBC WITH AUTOM ATED DIFF lym% 12.6 % 19-52 low Not Available [facility] [address] [place] [address], 13474, 04/02/2024 15:15:16 04/02/2004/02/2024 CBC WITH AUTOM ATED DIFF mon% 7.90 % 5-13 Not Available [facility] [address] [place] [address], 10149, 04/02/2024 15:15:16 04/02/2004/02/2024 CBC WITH AUTOM ATED DIFF eos% 4.20 % 0-6 Not Available [facility] [address] [place] [address], 11874, 04/02/2024 15:15:16 04/02/20 24 04/02/2024 CBC WITH AUTOM ATED DIFF bas% 0.50 % 0-2 Not Available [facility] [address] [place] [address], [place], [address], 04/02/2024 15:15:16 04/02/2004/02/2024 CBC WITH AUTOM ATED DIFF Ig% 0.4 0-1.0 Not Available [facility] [address] [place] [address], 89744, 04/02/2024 15:15:16 04/02/2004/02/2024 CBC WITH AUTOM ATED DIFF dominic# 10.71 10 1.5-7 high Not Available [address], 75384, 04/02/2024 15:15:16 04/02/20 24 04/02/2024 CBC WITH AUTOM ATED DIFF lym# 1.8 10 1.18-4 .00 Not Available [address], 15638, 04/02/2024 15:15:16 04/02/20 24 04/02/2024 CBC WITH AUTOM ATED DIFF mon# 1.1 10 0.00-0 .90 high Not Available [address], 77543, 04/02/2024 15:15:16 04/02/20 24 04/02/2024 CBC WITH AUTOM ATED DIFF eos# 0.6 10 0.00-0 .60 Not Available [address], 07226, 04/02/2024 15:15:16 04/02/20 24 04/02/2024 CBC WITH AUTOM ATED DIFF bas# 0.1 10 0.00-0 .10 Not Available [address], 40988, 04/02/2024 15:15:16 04/02/20 24 04/02/2024 CBC WITH AUTOM ATED DIFF Ig# 0.06 0-0.05 high Not Available [address], 09644, 04/02/2024 15:15:16 04/02/20 24 04/02/2024 SED RATE AUTOM ATED sed rate 35 mm/HR 0-40 Not Available [address], 33614, 04/02/2024 15:35:40 05/19/20 24 05/19/2024 CBC WITH AUTOM ATED DIFF WBC 12.1 10 4.0-10 .0 high Not Available [facility] [address] [place] [address], 21675, 05/19/2024 11:43:10 05/19/20 24 05/19/2024 CBC WITH AUTOM ATED DIFF RBC 4.57 10 3.90-5 .22 Not Available [facility] [address] [place] [address], 42293, 05/19/2024 11:43:10 05/19/20 24 05/19/2024 CBC WITH AUTOM ATED DIFF HGB 13.4 g/dL 11.2-1 5.7 Not Available [facility] [address] [place] [address], 69509, 05/19/2024 11:43:10 05/19/20 24 05/19/2024 CBC WITH AUTOM ATED DIFF HCT 42.5 % 34.1-4 4.9 Not Available [facility] [address] [place] [address], 55969, 05/19/2024 11:43:10 05/19/20 24 05/19/2024 CBC WITH AUTOM ATED DIFF MCV 93.0 fL 82.0-9 9.0 Not Available [facility] [address] [place] [address], 89784, 05/19/2024 11:43:10 05/19/20 24 05/19/2024 CBC WITH AUTOM ATED DIFF MCH 29.3 pg 29.0-3 4.5 Not Available [facility] [address] [place] [address], 34439, 05/19/2024 11:43:10 05/19/20 24 05/19/2024 CBC WITH AUTOM ATED DIFF MCHC 31.5 g/dL 32.5-3 5.5 low Not Available [facility] [address] [place] [address], 96286, 05/19/2024 11:43:10 05/19/20 24 05/19/2024 CBC WITH AUTOM ATED DIFF RDW 13.6 11.5-1 4.5 Not Available [facility] [address] [place] [address], 77884, 05/19/2024 11:43:10 05/19/20 24 05/19/2024 CBC WITH AUTOM ATED DIFF platelet 212 10 180-37 0 Not Available [facility] [address] [place] [address], 87906, 05/19/2024 11:43:10 05/19/20 24 05/19/2024 CBC WITH AUTOM ATED DIFF MPV 11.00 fL 9.0-12 .4 Not Available [facility] [address] [place] [address], 80010, 05/19/2024 11:43:10 05/19/20 24 05/19/2024 CBC WITH AUTOM ATED DIFF dominic% 73.7 % 34.0-7 1.1 high Not Available [facility] [address] [place] [address], 83805, 05/19/2024 11:43:10 05/19/20 24 05/19/2024 CBC WITH AUTOM ATED DIFF lym% 14.3 % 19-52 low Not Available [facility] [address] [place] [address], 91998, 05/19/2024 11:43:10 05/19/20 24 05/19/2024 CBC WITH AUTOM ATED DIFF mon% 5.80 % 5-13 Not Available [facility] [address] [place] [address], 27178, 05/19/2024 11:43:10 05/19/20 24 05/19/2024 CBC WITH AUTOM ATED DIFF eos% 5.40 % 0-6 Not Available [facility] [address] [place] [address], 29203, 05/19/2024 11:43:10 05/19/20 24 05/19/2024 CBC WITH AUTOM ATED DIFF bas% 0.30 % 0-2 Not Available [facility] [address] [place] [address], 38401, 05/19/2024 11:43:10 05/19/20 24 05/19/2024 CBC WITH AUTOM ATED DIFF Ig% 0.5 0-1.0 Not Available [facility] [address] [place] [address], [place], [address], 05/19/2024 11:43:10 05/19/20 24 05/19/2024 CBC WITH AUTOM ATED DIFF dominic# 8.90 10 1.5-7 high Not Available [facility] [address] [place] [address], [place], [address], 05/19/2024 11:43:10 05/19/20 24 05/19/2024 CBC WITH AUTOM ATED DIFF lym# 1.7 10 1.18-4 .00 Not Available [facility] [address] [place] [address], [place], [address], 05/19/2024 11:43:10 05/19/20 24 05/19/2024 CBC WITH AUTOM ATED DIFF mon# 0.7 10 0.00-0 .90 Not Available [facility] [address] [place] [address], [place], [address], 05/19/2024 11:43:10 05/19/20 24 05/19/2024 CBC WITH AUTOM ATED DIFF eos# 0.7 10 0.00-0 .60 high Not Available [facility] [address] [place] [address], [place], [address], 05/19/2024 11:43:10 05/19/20 24 05/19/2024 CBC WITH AUTOM ATED DIFF bas# 0.0 10 0.00-0 .10 Not Available [facility] [address] [place] [address], [place], [address], 05/19/2024 11:43:10 05/19/20 24 05/19/2024 CBC WITH AUTOM ATED DIFF Ig# 0.06 0-0.05 high Not Available [facility] [address] [place] [address], [place], [address], 05/19/2024 11:43:10 05/19/20 24 05/19/2024 SED RATE AUTOM ATED sed rate 37 mm/HR 0-40 Not Available [facility] [address] [place] [address], 02709, 05/19/2024 12:05:38 05/19/20 24 05/19/2024 HEMOG LOBIN A1C (IN HOUSE ) hemoglobin A1C 6.46 % 4-6 high Not Available formerly [facility] [address] [place] [address], 10119, 05/19/2024 12:06:25 05/19/20 24 05/19/2024 C-JARED CTIVE PROTE IN QUANT CRP quantatative 2.3 mg/dL 0.0-1. 0 high Not Available [address], 65591, 05/19/2024 12:43:57 05/19/20 24 05/19/2024 COMP METAB OLIC PNL glucose 194 mg/dL 74-100 high Not Available [address], 01524, 05/19/2024 12:44:03 05/19/20 24 05/19/2024 COMP METAB OLIC PNL BUN 13 mg/dL 7-17 Not Available [facility] [address] [place] [address], 38274, 05/19/2024 12:44:03 05/19/20 24 05/19/2024 COMP METAB OLIC PNL sodium 140 mmol/ L 136-14 5 Not Available [facility] [address] [place] [address], 49425, 05/19/2024 12:44:03 05/19/20 24 05/19/2024 COMP METAB OLIC PNL K 4.0 mmol/ L 3.5-5. 1 Not Available [facility] [address] [place] [address], 80615, 05/19/2024 12:44:03 05/19/20 24 05/19/2024 COMP METAB OLIC PNL chloride 105 mmol/ L 98-107 Not Available [facility] [address] [place] [address], [place], [address], 05/19/2024 12:44:03 05/19/20 24 05/19/2024 COMP METAB OLIC PNL tot CO2 27 mmol/ L 22-30 Not Available [facility] [address] [place] [address], [place], [address], 05/19/2024 12:44:03 05/19/20 24 05/19/2024 COMP METAB OLIC PNL calcium 9.2 mg/dL 8.6-10 .3 Not Available [facility] [address] [place] [address] [place], [address], 05/19/2024 12:44:03 05/19/20 24 05/19/2024 COMP METAB OLIC PNL creatinine 0.6 mg/dL 0.52-1 .04 Not Available [address], 03731, 05/19/2024 12:44:03 05/19/20 24 05/19/2024 COMP METAB OLIC PNL alkaline phos 75 U/L 38-126 Not Available [address] [place], [address], 05/19/2024 12:44:03 05/19/20 24 05/19/2024 COMP METAB OLIC PNL AST (SGOT) 25 U/L 14-36 Not Available [address], 91123, 05/19/2024 12:44:03 05/19/20 24 05/19/2024 COMP METAB OLIC PNL albumin 3.9 g/dL 3.3-5. 0 Not Available [address], 29863, 05/19/2024 12:44:03 05/19/20 24 05/19/2024 COMP METAB OLIC PNL globulin 3.6 2.0-4. 8 Not Available [address], 95720, 05/19/2024 12:44:03 05/19/20 24 05/19/2024 COMP METAB OLIC PNL total protein 7.5 g/dL 6.3-8. 2 Not Available [facility] [address] [place] [address], 27277, 05/19/2024 12:44:03 05/19/20 24 05/19/2024 COMP METAB OLIC PNL A/G ratio 1.1 0.7-3. 5 Not Available [facility] [address] [place] [address], 03234, 05/19/2024 12:44:03 05/19/20 24 05/19/2024 COMP METAB OLIC PNL ALT (SGPT) 26 U/L 0-35 Not Available [facility] [address] [place] [address], 07462, 05/19/2024 12:44:03 05/19/20 24 05/19/2024 COMP METAB OLIC PNL total bilirubin 0.4 mg/dL 0.2-1. 3 Not Available [facility] [address] [place] [address], 41434, 05/19/2024 12:44:03 05/19/20 24 05/19/2024 COMP METAB OLIC PNL GFR >60 60- Refer ence Range : [place] ge GFR Healt hy Adult : >60 mL/mi n/1.7 3 m2 Chron ic Kidne y Disea se: 15-60 mL/mi n/1.7 3 m2 Kidne y Failu re: <15/m L/min /1.73 m2 www.n iddk. nih.g ov MDRD study equat ion hasn' t been valid ated in child crista <18 yrs of age, pregn ant women , the elder ly >85 yrs of age, or in some racia l or ethni c subgr oups, suc as Hispa nics. Outsi de the valid ated nora eters , estim ated GFR is less accur ate requi ring clini archie judgm ent on a case by case basis . Clini archie inter preta tion for other races and ages must be made by the clini augustine . Futhe rmore , any of th e limit ation s with the use of serum creat inine relat ed to nutri isiah l statu s o r medic ation usage hasn' t accou nted for the MDRD Study equat ion. For perso ns < 18 yrs of age, a pedia tric GFR calcu lator can be locat ed on the [facility] websi te: https ://benita w.kid tae.o rg/pr ofess ional s/kdo qi/gf r_cal culat or Not Available [facility] [address] [place] [address], 44285, 05/19/2024 12:44:03 05/19/20 24 05/19/2024 COMP METAB OLIC PNL agap 7.6 mmol/ L 5.0-19 .0 Not Available [facility] [address] [place] [address], 01874, 05/19/2024 12:44:03 05/19/20 24 05/19/2024 LIPID PNL cholesterol 150 mg/dL 120-20 0 Not Available [facility] [address] [place] [address], 76016, 05/19/2024 13:38:54 05/19/20 24 05/19/2024 LIPID PNL triglyceride s 216 mg/dL 0-150. 0 high Not Available [facility] [address] [place] [address], 51262, 05/19/2024 13:38:54 05/19/20 24 05/19/2024 LIPID PNL HDL cholesterol 35 mg/dL 40-60 low Not Available [facility] [address] [place] [address], 20052, 05/19/2024 13:38:54 05/19/20 24 05/19/2024 LIPID PNL LDL 71.8 mg/dL 0-130 Not Available [facility] [address] [place] [address], 81450, 05/19/2024 13:38:54 05/19/20 24 05/19/2024 TSH WITH REFLE X TO FT4 TSH with reflex to free T4 2.61 uIU/m L 0.465- 4.68 Not Available [facility] [address] [place] [address], [place], [address], 05/19/2024 13:43:31 06/01/2006/01/2024 URINE CREAT ININE RANDO M urine creatinine 15.2 mg/dL REFER ENCE RANGE NOT ESTAB LISHE D Not Available [facility] [address] [place] [address], [place], [address], 06/01/2024 15:38:11 06/01/2006/01/2024 MICRO ALBUM IN microalbumin <0.6 mg/dL 0-1.6 Not Available [facility] [address] [place] [address], 18761, 06/01/2024 15:41:33 09/08/19 25 09/09/2024 COMP METAB OLIC PNL glucose 153 mg/dL 74-100 high Not Available [facility] [address] [place] [address], 97017, 09/09/2024 09:17:33 09/08/1909/09/2024 COMP METAB OLIC PNL BUN 15 mg/dL 7-17 Not Available [facility] [address] [place] [address], 17705, 09/09/2024 09:17:33 09/08/1909/09/2024 COMP METAB OLIC PNL sodium 136 mmol/ L 136-14 5 Not Available [facility] [address] [place] [address], 06869, 09/09/2024 09:17:33 09/08/1909/09/2024 COMP METAB OLIC PNL K 4.1 mmol/ L 3.5-5. 1 Not Available [facility] [address] [place] [address], 93126, 09/09/2024 09:17:33 09/08/1909/09/2024 COMP METAB OLIC PNL chloride 98 mmol/ L 98-107 Not Available [address], [address], 09/09/2024 09:17:33 09/08/19 25 09/09/2024 COMP METAB OLIC PNL tot CO2 25 mmol/ L 22-30 Not Available [address], [address], 09/09/2024 09:17:33 09/08/1909/09/2024 COMP METAB OLIC PNL calcium 9.7 mg/dL 8.6-10 .3 Not Available [address], [address], 09/09/2024 09:17:33 09/08/1909/09/2024 COMP METAB OLIC PNL creatinine 0.6 mg/dL 0.52-1 .04 Not Available [address], [address], 09/09/2024 09:17:33 09/08/1909/09/2024 COMP METAB OLIC PNL alkaline phos 80 U/L 38-126 Not Available [address] [place], [address], 09/09/2024 09:17:33 09/08/1909/09/2024 COMP METAB OLIC PNL AST (SGOT) 26 U/L 14-36 Not Available [address] [place], [address], 09/09/2024 09:17:33 09/08/1909/09/2024 COMP METAB OLIC PNL albumin 4.1 g/dL 3.3-5. 0 Not Available [address] [place], [address], 09/09/2024 09:17:33 09/08/1909/09/2024 COMP METAB OLIC PNL globulin 3.5 2.0-4. 8 Not Available [facility] [address] [place] [address], [id number], 09/09/2024 09:17:33 09/08/1909/09/2024 COMP METAB OLIC PNL total protein 7.6 g/dL 6.3-8. 2 Not Available [address], [address], 09/09/2024 09:17:33 09/08/19 25 09/09/2024 COMP METAB OLIC PNL A/G ratio 1.17 0.7-3. 5 Not Available [facility] [address] [place] [address], [id number], 09/09/2024 09:17:33 09/08/1909/09/2024 COMP METAB OLIC PNL ALT (SGPT) 23 U/L 0-35 Not Available [address], [address], 09/09/2024 09:17:33 09/08/1909/09/2024 COMP METAB OLIC PNL total bilirubin 0.4 mg/dL 0.2-1. 3 Not Available [address], [address], 09/09/2024 09:17:33 09/08/1909/09/2024 COMP METAB OLIC PNL GFR >60 60- Refer ence Range : [place] ge GFR Healt hy Adult : >60 mL/mi n/1.7 3 m2 Chron ic Kidne y Disea se: 15-60 mL/mi n/1.7 3 m2 Kidne y Failu re: <15/m L/min /1.73 m2 www.n iddk. nih.g ov MDRD study equat ion hasn' t been valid ated in child crista <18 yrs of age, pregn ant women , the elder ly >85 yrs of age, or in some racia l or ethni c subgr oups, suc as Hispa nics. Outsi de the valid ated nora eters , estim ated GFR is less accur ate requi ring clini archie judgm ent on a case by case basis . Clini archie inter preta tion for other races and ages must be made by the clini augustine . Futhe rmore , any of th e limit ation s with the use of serum creat inine relat ed to nutri isiah l statu s o r medic ation usage hasn' t accou nted for the MDRD Study equat ion. For perso ns < 18 yrs of age, a pedia tric GFR calcu lator can be locat ed on the [facility] websi te: https ://benita w.bi escobary.o rg/pr ofess ional s/kdo qi/gf r_cal culat or Not Available Formerly [facility] [address] [place] [address], [id number], 09/09/2024 09:17:33 09/08/1909/09/2024 COMP METAB OLIC PNL agap 13 mmol/ L 5.0-19 .0 Not Available Formerly [facility] [address] [place] [address], [id number], 09/09/2024 09:17:33 09/08/1909/08/2024 C-JARED CTIVE PROTE IN QUANT CRP quantatative 1.5 mg/dL 0.0-1. 0 high Not Available [address], [address], 09/08/2024 16:19:23 09/08/1909/08/2024 SED RATE AUTOM ATED sed rate 48 mm/HR 0-40 high Not Available [facility] [address] [place] [address], [id number], 09/08/2024 16:25:25 09/08/19 25 09/08/2024 CBC WITH AUTOM ATED DIFF WBC 15.5 10 4.0-10 .0 high Not Available [address], [address], 09/08/2024 16:25:51 09/08/1909/08/2024 CBC WITH AUTOM ATED DIFF RBC 4.41 10 3.90-5 .22 Not Available [facility] [address] [place] [address], [id number], 09/08/2024 16:25:51 09/08/1909/08/2024 CBC WITH AUTOM ATED DIFF HGB 13.0 g/dL 11.2-1 5.7 Not Available [facility] [address] [place] [address], [id number], 09/08/2024 16:25:51 09/08/1909/08/2024 CBC WITH AUTOM ATED DIFF HCT 41.0 % 34.1-4 4.9 Not Available [facility] [address] [place] [address], [id number], 09/08/2024 16:25:51 09/08/1909/08/2024 CBC WITH AUTOM ATED DIFF MCV 93.0 fL 82.0-9 9.0 Not Available [facility] [address] [place] [address], [id number], 09/08/2024 16:25:51 09/08/1909/08/2024 CBC WITH AUTOM ATED DIFF MCH 29.5 pg 29.0-3 4.5 Not Available [facility] [address] [place] [address], [id number], 09/08/2024 16:25:51 09/08/1909/08/2024 CBC WITH AUTOM ATED DIFF MCHC 31.7 g/dL 32.5-3 5.5 low Not Available [facility] [address] [place] [address], [id number], 09/08/2024 16:25:51 09/08/1909/08/2024 CBC WITH AUTOM ATED DIFF RDW 15.3 11.5-1 4.5 high Not Available [facility] [address] [place] [address], [id number], 09/08/2024 16:25:51 09/08/192025 CBC WITH AUTOM ATED DIFF platelet 259 10 180-37 0 Not Available [facility] [address] [place] [address], [address], 09/08/2024 16:25:51 09/08/19 25 09/08/2024 CBC WITH AUTOM ATED DIFF MPV 9.90 fL 9.0-12 .4 Not Available [facility] [address] [place] [address], [address], 09/08/2024 16:25:51 09/08/19 25 09/08/2024 CBC WITH AUTOM ATED DIFF dominic% 76.2 % 34.0-7 1.1 high Not Available [facility] [address] [place] [address], [id number], 09/08/2024 16:25:51 09/08/19 25 09/08/2024 CBC WITH AUTOM ATED DIFF lym% 11.3 % 19-52 low Not Available [facility] [address] [place] [address], [id number], 09/08/2024 16:25:51 09/08/19 25 09/08/2024 CBC WITH AUTOM ATED DIFF mon% 9.40 % 5-13 Not Available [facility] [address] [place] [address], [id number], 09/08/2024 16:25:51 09/08/19 25 09/08/2024 CBC WITH AUTOM ATED DIFF eos% 2.30 % 0-6 Not Available [facility] [address] [place] [address], [id number], 09/08/2024 16:25:51 09/08/19 25 09/08/2024 CBC WITH AUTOM ATED DIFF bas% 0.20 % 0-2 Not Available [facility] [address] [place] [address], [address], 09/08/2024 16:25:51 09/08/19 25 09/08/2024 CBC WITH AUTOM ATED DIFF Ig% 0.6 0-1.0 Not Available [address], [address], 09/08/2024 16:25:51 09/08/19 25 09/08/2024 CBC WITH AUTOM ATED DIFF dominic# 11.77 10 1.5-7 high Not Available [address], [address], 09/08/2024 16:25:51 09/08/19 25 09/08/2024 CBC WITH AUTOM ATED DIFF lym# 1.8 10 1.18-4 .00 Not Available [address], [address], 09/08/2024 16:25:51 09/08/19 25 09/08/2024 CBC WITH AUTOM ATED DIFF mon# 1.5 10 0.00-0 .90 high Not Available [address], [address], 09/08/2024 16:25:51 09/08/19 25 09/08/2024 CBC WITH AUTOM ATED DIFF eos# 0.4 10 0.00-0 .60 Not Available [address], [address], 09/08/2024 16:25:51 09/08/19 25 09/08/2024 CBC WITH AUTOM ATED DIFF bas# 0.0 10 0.00-0 .10 Not Available [address], [address], 09/08/2024 16:25:51 09/08/19 25 09/08/2024 CBC WITH AUTOM ATED DIFF Ig# 0.09 0-0.05 high Not Available [address], [address], 09/08/2024 16:25:51 09/25/19 24 09/25/2023 mg scrn arely meier t [address] [address] MAMMOG ANITA REPORT Name: VERENICE GOLDBERG Room #: : 1949 Accoun t #: [id number] Bed #: Age: 73 Years Patien t Type: Outpat ient Order Date/T katelyn: 2023 08:54: 59 AM Sex: F Access ion#: Exam Descri ption: Exam Reason : [id number] MG SCRN BREAST ARLEN, U z1231 screen ing, RT mast Dictat ed By: Aury Smallwood ng Physic ines: HUYEN CAMPO Attend ing Physic ines: HUYEN CAMPO Primar y Care Physic ines: HUYEN CAMPO EXAMIN ATION: MG SCRN BREAST ARLEN, UNILAT Date: 024 8:54 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 TECHNI QUE: 2-D and 3-D digita l mammog john perfor med of the left breast in the MLO and CC projec tions with CAD FINDIN GS: The fibrog landul ar parenc hymal patter n consis ts of scatte red fibrog landul ar densit ies. Cardia c pacema ker partia lly obscur es the left axilla and left breast superi mariaa on the MLO view. No domina nt mass, isa ectura l distor tion or calcif icatio ns of the malign ant type. Smooth ly margin ated 4.8 mm round nodule terminal makeup operator ior one third left MLO view superi mariaa withou t signif icant interv al change since at least 2017 and compat ible with a benign cyst, fibroa denoma or intram ammary lymph node PAGE 1 OF 2 MAMMOG ANITA REPORT Name: VERENICE GOLDBERG Room #: : 1949 Accoun t #: [id number] Bed #: Age: 73 Years Patien t Type: Outpat ient Order Date/T katelyn: 2023 08:54: 59 AM Sex: F IMPRES PARISH: NO MAMMOG RAPHIC EVIDEN CE OF MALIGN EULALIO. THEREF ORE, CONTIN UED ROUTIN E ANNUAL MAMMOG ANITA SCREEN ING IS RECOMM ENDED UNLESS CLINIC ALLY INDICA LUCIA SOONER . 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 AUTOMATIC Workst ation: [id number] PAGE 2 OF 2 [email or web address] [address] [place] [address], [id number], 09/25/2023 14:00:29 06/25/20 24 06/25/2024 XR, thora cic spine , 3 view [facility] [address] [place] [address] IMAGIN G REPORT Name: VERENICE GOLDBERG Room #: : 1949 Accoun t #: [id number] Bed #: Age: 74 Years Patien t Type: Outpat ient Order Date/T katelyn: 2023 10:20: 00 AM Sex: F Access ion#: Exam Descri ption: Exam Reason : [id number] XR T-SPIN E 3V pain in back Dictat ed By: Betzy Loera rd Physic ines: CLAU LAWS Attend ing Physic ines: CLAU LAWS CAMILLA E Primar y Care Physic ines: [facility] AL HISTOR Y: pain in back. COMPAR SHAN: 2 view chest x-ray, 022 TECHNI QUE: 3 view thorac ic spine DISCUS PARISH: Dual-l ead pacer leads are noted and withou t signif icant change in positi on/bonnie earanc e. Slight dextro scolio sis of thorac ic spine. There are modera te multil evel degene rative change s with disc space narrow ing, endpla te sclero sis and diffus e modera te degene rative margin al osteop hyte format ion predom inantl y of the mid and lower thorac ic spine. Verteb ral body statur e appear s grossl y mainta ined in compar shan with latera l chest radiog raph 2021. Pedicl es are intact . Parasp inal soft tissue s are grossl y unrema rkable . IMPRES PARISH: 1. No acute osseou s findin g 2. Modera te multil evel degene rative change s disc and facet diseas e. PAGE 1 OF 2 IMAGIN G REPORT Name: VERENICE GOLDBERG Room #: : 1949 Accoun t #: [id number] Bed #: Age: 74 Years Patien t Type: Outpat ient Order Date/T katelyn: 2023 10:20: 00 AM Sex: F Electr onical ly signed by: Betzy Loera rd, MD 2023 12:12 PM CDT RP Workst ation: [id number] PAGE 2 [email or web address] [place] [address] [place] [address], [address], 07/12/2024 16:41:32 Result Notes None recorded. Problems Name Problem SNOMED Code Status Onset Date Resolution Date Notes Provider Name and Address Organization Details Recorded Time Pain of knee region 6310204432 Active 2022 Angy sinha, [facility] 3 10:26:41 Actinic keratosi s 225430520 Active 2022 R dorsal hand, L lateral cheek, L methodist, R cheek, R neck Sonia sinha, [facility] 3 13:37:24 Female stress incontin ence 42576860 Active 2022 HUE Bryan [address] [place] [address], [address] , [facility] 3 11:52:30 Insomnia 036928291 Active 2022 treated with trazodon e 50 mg [facility] 3 11:42:39 Postmeno pausal osteopen ia 016640998 Active 2023 NELLIE BECK MD [address] [place] [address], [address] , [facility] 4 14:22:06 History of malignan t neoplasm of breast 726345085 Active 2023 NELLIE BECK MD [address] [place] [address], [address] , [facility] 4 12:21:37 Chronic insomnia 498149574 Active 2023 NELLIE BECK MD [address] [place] [address], [address] , [facility] 4 12:24:51 Chronic cough 82358276 Active 2023 NELLIE BECK MD [address] [place] [address], [address] , [facility] 4 10:01:13 Chronic constipa tion 343713318 Active 2023 NELLIE BECK MD [address] [place] [address], [address] , [facility] 4 10:07:49 Type 2 diabetes mellitus without complica tion 577334380 Active 2023 NELLIE BECK MD [address] [place] [address], [address] , [facility] 5 23:34:55 Sleep apnea 56545965 Active 2023 Aishwarya sinha, [facility] 4 12:31:44 Sick sinus syndrome 04926671 Active 2023 Aishwarya Alfaroing null, [facility] 4 12:32:16 Glucose level outside referenc e range 425484790 Active Not Available [facility] 3 21:44:14 Concussi on injury of brain 499469256 Active Not Available [facility] 3 21:44:14 Obstruct sameera sleep apnea of adult 24438427889 03 Active 2017 Mild - using Cpap Not Available [facility] 3 21:44:14 Menopaus al syndrome 298856040 Active Not Available [facility] 3 21:44:14 Constipa tion 92066502 Active Not Available [facility] 3 21:44:14 Nausea and vomiting 24105606 Active Not Available [facility] 3 21:44:14 Hand joint pain 404556724 Active Not Available [facility] 3 21:44:14 Gastroes ophageal reflux disease 042235074 Active Not Available [facility] 3 21:44:14 Osteoart hritis of knee 778440255 Active Not Available [facility] 3 21:44:14 Headache 94143395 Active Not Available [facility] 3 21:44:15 Malignan t tumor of breast 955187646 Active Not Available [facility] 3 21:44:15 Joint swelling 913319187 Active Not Available [facility] 3 21:44:15 Low back pain 342933931 Active Not Available [facility] 3 21:44:15 Knee pain Active Not Available [facility] 3 21:44:15 Depressi ve disorder 78807777 Active Not Available [facility] 3 21:44:15 Postconc ussion syndrome 12306933 Active Not Available [facility] 3 21:44:15 Dysphagi a 44328304 Active Not Available [facility] 3 21:44:15 Body mass index 40+ - severely obese 415708982 Active Not Available [facility] 3 21:44:15 Temporom andibula r joint disorder 16458046 Active Not Available [facility] 3 21:44:15 Hyperlip idemia 18362063 Active NELLIE BECK MD [address] [place] [address], [address] , [facility] 4 14:24:11 Adjustme nt disorder with depresse d mood 96363071 Active Not Available [facility] 3 21:44:15 Carpal tunnel syndrome 28283352 Active Not Available [facility] 3 21:44:15 Joint pain 58073004 Active Not Available [facility] 3 21:44:16 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 49199204 Active Not Available [facility] 3 21:44:16 Rheumato id arthriti s 94711722 Active NELLIE BECK MD [address] [place] [address], [address] , [facility] 4 12:21:18 Diffuse spasm of esophagu s 21541863 Active Not Available [facility] 3 21:44:16 Injury of head 32881246 Active Not Available [facility] 3 21:44:16 Fatigue 69450096 Active Not Available [facility] 3 21:44:16 Pain in limb 94774124 Active Not Available [facility] 3 21:44:16 Benign neoplasm of colon 01745891 Active Not Available [facility] 3 21:44:16 Mammogra phic mass of breast 362512699 Completed Not Available [facility] 3 21:13:04 Daytime somnolen ce 16613962732 0 Active 2021 Not Available [facility] 3 21:13:04 Urinary incontin ence 350098075 Active 2019 Not Available [facility] 3 21:13:05 Folic acid deficien cy 786878568 Active 2022 Not Available [facility] 3 21:13:05 Postoper ative pain 060071611 Completed Not Available [facility] 3 21:13:05 Mixed anxiety and depressi ve disorder 486573937 Active 2020 Not Available [facility] 3 21:13:05 Anemia 031286587 Active Not Available [facility] 3 21:13:06 Eruption 688628300 Completed 201901/17/2021 Not Available [facility] 3 21:13:06 Thyroid function tests abnormal 806971554 Active 2020 Not Available [facility] 3 21:13:06 Osteopen ia 135281030 Completed 201901/17/2021 Not Available [facility] 3 21:13:07 Hypoxia 796864724 Completed Not Available [facility] 3 21:13:07 Osteoart hritis 465445159 Active 2020 Not Available [facility] 3 21:13:07 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 374934092 Active 2019 left lateral brow Not Available [facility] 3 21:13:07 History of polyp of colon 703716025 Completed Not Available [facility] 3 21:13:08 Bradycar zeus 62727829 Active 2021 Not Available [facility] 3 21:13:08 Cough 60487328 Active 2021 Not Available [facility] 3 21:13:08 [facility] 72329750 Active 2019 Not Available [facility] 3 21:13:09 Urinary tract infectio us disease 31465967 Completed Not Available [facility] 3 21:13:09 Cholelit hiasis without obstruct ion 20806954 Completed Not Available [facility] 3 21:13:09 Prediabe kera 294804915 Active 2020 Not Available [facility] 3 21:13:10 Obstruct sameera sleep apnea syndrome 80039763 Active 2018 wears CPAP Not Available [facility] 3 21:13:10 Overacti ve urinary bladder 411413095 Active 2021 Not Available [facility] 3 21:13:10 Epigastr ic pain 26595435 Completed Not Available [facility] 3 21:13:10 Problem Notes None recorded. Procedures Surgical History Date Name Laterality Status Provider Name and Address Organization Details Recorded Time 06/28 Biopsy completed Renate Christine [place] [facility] 4 16:27:01 09/25 Date of Last Mammogram completed Melinda Alva [place] [facility] 4 14:00:20 09/18 Medicare Wellness CPT Code, Subsequent completed Reny Abraham RN [address], [place], [address] , [place] [facility] 4 10:12:40 09/04 Medicare Wellness CPT Code, Subsequent cancelled Reny Abraham RN [address], [place], [address] , [facility] 3 16:40:05 09/02 other completed Reny Abraham RN [address], [place], [address] , [facility] 4 11:13:50 02/25 Orthopedic Surgery completed Renate Christine [place] [facility] 3 10:59:18 11/04 cryosurgery completed Sonia Omalley [place] [facility] 3 13:38:21 09/12 Most Recent Bone Density completed Teresa Abraham RN [address], [place], [address] , [facility] 4 11:11:44 12/28 Cardiovascular Procedure completed Not Available [facility] 3 21:14:45 09/24 Other completed Not Available [facility] 3 21:14:45 05/24 Hernia Repair completed Not Available [facility] 3 21:14:45 03/08 Other completed Not Available [facility] 3 21:14:45 01/30 Excisions - Specify completed Not Available [facility] 3 21:14:45 12/01 Hernia Repair completed Not Available [facility] 3 21:14:45 07/02 Other completed Not Available [facility] 3 21:14:45 06/19 Hernia Repair completed Not Available [facility] 3 21:14:45 08/01 esophagogastroduodenoscopy completed Not Available [facility] 3 21:14:45 12/07 Date of Last Colonoscopy completed Teresa Abraham RN [address] [place], [address] , [facility] 4 11:11:50 12/07 Colonoscopy completed Not Available [facility] 3 21:14:45 10/30 Colonoscopy completed Not Available [facility] 3 21:14:45 09/01 esophagogastroduodenoscopy completed Not Available [facility] 3 21:14:45 09/01 Breast Biopsy completed Not Available [facility] 3 21:14:45 09/01 Breast Surgery completed Not Available [facility] 3 21:14:45 09/01 Total hysterectomy completed Not Available [facility] 3 21:14:45 Cholecystectomy completed Not Available [facility] 3 21:14:45 Other completed Not Available [facility] 3 21:14:45 Orthopedic Surgery completed Not Available [facility] 3 21:14:45 completed Not Available [facility] 3 21:14:45 Imaging Results Imaging Date Name Status LastModified by Organiz ation Details LastModified Time 09/25/2023 mg scrn breast arlen, unilat completed [email or web address] [facility] [address] [place] [address], [id number], 09/25/2023 14:00:29 06/25/2024 XR, thoracic spine, 3 view completed [email or web address] [facility] [address] [place] [address], [address], 07/12/2024 16:41:32 Procedure Notes None recorded. Medical Equipment None Reported. Allergies No known drug allergies Medications Name Sig Start Date Stop Date Status Note LastModified by Organization Details LastModified Time losartan 50 mg tablet TAKE 1 TABLET BY MOUTH EVERY DAY active Not Available Not Available No t Available amoxicill in 500 mg capsule TK FOUR CS PO 1 HOUR B DAPP 11/21 completed Not Available Not Available Not Available atorvasta tin 40 mg tablet TAKE 1 TABLET DAILY active Not Available Not Available No t Available silver sulfadiaz ine 1 % topical cream 11/21 completed Not Available Not Available Not Available prednison e 10 mg tablet TAKE 2 TABLETS BY MOUTH EVERY DAY FOR FIVE DAYS THEN 1 TABLET EVERY DAY FOR FIVE DAYS THEN STOP 11/21 completed Not Available Not Available Not Available nabumeton e 750 mg tablet TAKE 1 TABLET TWICE A DAY WITH MEALS active Not Available Not Available No t Available clindamyc in HCl 300 mg capsule TAKE 1 CAPSULE BY MOUTH THREE TIMES DAILY FOR FIVE DAYS 11/21 completed Not Available Not Available Not Available trazodone 50 mg tablet TAKE 1 TABLET BY MOUTH AT BEDTIME NEEDED active Not Available Not Available No t Available cetirizin e 10 mg tablet Take 1 tablet every day by oral route as needed, for allergie s. active Not Available Not Available No t Available oxybutyni n chloride ER 10 mg tablet,ex tended release 24 hr TAKE 1 TABLET TWICE A DAY active Not Available Not Available No t Available azithromy santana 250 mg tablet TAKE 2 TABLETS (500 MG) BY ORAL ROUTE ONCE DAILY FOR 1 DAY THEN 1 TABLET (250 MG) BY ORAL ROUTE ONCE DAILY FOR 4 DAYS 09/05 completed Not Available Not Available Not Available Lidocaine Viscous 2 % mucosal solution 04/16 completed Not Available Not Available Not Available hydrocodo ne 5 mg-acetam inophen 325 mg tablet Take 1 tablet every 6 hours by oral route. 09/22 completed Not Available Not Available Not Available minocycli ne 100 mg capsule TAKE 1 CAPSULE BY MOUTH TWICE DAILY FOR 14 DAYS 02/11 completed Not Available Not Available Not Available sucralfat e 1 gram tablet TAKE 1 TABLET 1 HOUR BEFORE EACH MEAL AND BEDTIME ON AN EMPTY STOMACH 02/11 completed Not Available Not Available Not Available lisinopri l 20 mg tablet Take 1 tablet twice a day by oral route. 11/[address] Robbins Not Available Not Available Not Available alendrona te 70 mg tablet TAKE 1 TABLET EVERY WEEK DIRECTED active Not Available Not Available No t Available fluoroura cil 5 % topical cream apply at hs 09/18 completed Not Available Not Available Not Available sertralin e 100 mg tablet TAKE 1 TABLET DAILY 09/18 completed Not Available Not Available Not Available prednison e 5 mg tablet Take 1 tablet twice a day by oral route. 09/18 completed Not Available Not Available Not Available clindamyc in HCl 150 mg capsule 05/20 completed Not Available Not Available Not Available leflunomi de 10 mg tablet Take 1 tablet every day by oral route. active Not Available Not Available No t Available amlodipin e 5 mg tablet TAKE 1 TABLET DAILY 11/21 completed Not Available Not Available Not Available acyclovir 400 mg tablet 11/21 completed Not Available Not Available Not Available sulfameth oxazole 800 mg-trimet hoprim 160 mg tablet Take 1 tablet every 12 hours by oral route for 10 days. 11/21 completed Not Available Not Available Not Available omeprazol e 40 mg capsule,d elayed release Take 1 capsule every day by oral route. 02/11 completed Not Available Not Available Not Available leflunomi de 20 mg tablet Take 1 tablet every day by oral route for 90 days. 05/27 completed Not Available Not Available Not Available tramadol 50 mg tablet 1 PO TID prn pain 02/11 completed Not Available Not Available Not Available Lipitor 20 mg tablet Take 1 tablet every day by oral route. 2012 active Not Available Not Available Not Avai lable Celebrex 200 mg capsule Take 1 capsule twice a day by oral route for 90 days. active Not Available Not Available No t Available oxycodone -acetamin ophen 5 mg-325 mg tablet TAKE 1 TABLET BY MOUTH EVERY 4 HOURS NEEDED FOR PAIN 09/18 completed Not Available Not Available Not Available methotrex ate sodium 2.5 mg tablet Take 8 tablets every week by oral route for 84 days. active Not Available Not Available No t Available nifedipin e 10 mg capsule Take 1 capsule every day by oral route. 10/04 completed Not Available Not Available Not Available amlodipin e 10 mg tablet Take 1 tablet every day by oral route. active Not Available Not Available No t Available benzonata te 100 mg capsule Take 2 capsules 3 times a day by oral route for 7 days. 11/21 completed Not Available Not Available Not Available hydrocodo ne 7.5 mg-acetam inophen 325 mg tablet 09/22 completed Not Available Not Available Not Available cephalexi n 500 mg capsule TAKE 1 CAPSULE BY MOUTH EVERY SIX HOURS FOR 10 DAYS 05/09 completed Not Available Not Available Not Available pantopraz ole 40 mg tablet,de layed release Take one tablet by mouth twice daily 10/30 completed Not Available Not Available Not Available erythromy santana 5 mg/gram (0.5 %) eye ointment APPLY THIN LAYER IN LEFT EYE AT BEDTIME 05/19 completed Not Available Not Available Not Available telmisart an 40 mg tablet 02/12 completed Not Available Not Available Not Available esomepraz ole magnesium 40 mg capsule,d elayed release take 1 capsule daily 10/30 completed Not Available Not Available Not Available lisinopri l 10 mg tablet Take one tablet by mouth daily 05/09 completed Not Available Not Available Not Available oxybutyni n chloride ER 5 mg tablet,ex tended release 24 hr TAKE 1 TABLET BY MOUTH EVERY DAY 05/09 completed Not Available Not Available Not Available gabapenti n 300 mg capsule 12/22 completed Not Available Not Available Not Available sertralin e 25 mg tablet Take 1 tablet every day by oral route. 03/26 completed Not Available Not Available Not Available folic acid 1 mg tablet Take 1 tablet every day by oral route. active Not Available Not Available No t Available hydrocodo ne 5 mg-acetam inophen 500 mg tablet Take 1 tablet every 6-8 hours by oral route for 30 days. active Not Available Not Available No t Available mupirocin 2 % topical ointment APPLY TWICE A DAY TO INVOLVED AREAS 02/11 completed Not Available Not Available Not Available levofloxa santana 500 mg tablet 07/30 completed Not Available Not Available Not Available methylpre dnisolone 4 mg tablets in a dose pack START TOMORROW DIRECTED ON PACKAGE AND TAKE WITH FOOD 11/21 completed Not Available Not Available Not Available albuterol sulfate HFA 90 mcg/actua tion aerosol inhaler prn active Not Available Not Available Not Available diltiazem 30 mg tablet take 1/2 tab BID 04/16 completed Not Available Not Available Not Available hydrocort isone 2.5 % topical ointment appy at hs 09/18 completed Not Available Not Available Not Available ondansetr on 4 mg disintegr ating tablet 04/16 completed Not Available Not Available Not Available losartan 100 mg tablet Take 1 tablet every day by oral route. 02/11 completed Not Available Not Available Not Available fluticaso ne propionat e 50 mcg/actua tion nasal spray,ute pension [place] 1 spray every day by intranas al route as needed. 05/19 completed Not Available Not Available Not Available sertralin e 50 mg tablet TAKE 2 TABLETS DAILY active Not Available Not Available No t Available nabumeton e 500 mg tablet Take 1 tablet twice a day by oral route after meals for 30 days. active Not Available Not Available No t Available oxycodone 5 mg tablet 02/11 completed Not Available Not Available Not Available Benadryl 25 mg capsule Take 1 capsule every day by oral route in the evening. 07/16 completed Not Available Not Available Not Available neomycin 3.5 mg/g-poly myxin B 10,000 unit/g-de xameth 0.1 % eye oint 02/11 completed Not Available Not Available Not Available Humira 40 mg/0.8 mL subcutane ous syringe kit Inject 1 mg every 2 weeks by subcutan eous route. 08/07 completed Not Available Not Available Not Available metoprolo l tartrate 25 mg tablet Take 1 tablet twice a day by oral route. active Not Available Not Available No t Available melatonin takes 2 at hs 03/30 completed Not Available Not Available Not Available Fish Oil active Not Available Not Avai lable Not Available mupirocin 06/07 completed Not Available Not Available Not Available potassium active Not Available Not Mel ilable Not Available Vitamin D3 2000 IU daily active recommen ded November 22 Not Available Not Available Not Available Multiple Vitamin, Womens daily 07/30 completed Not Available Not Available Not Available Humira Pen 40 mg/0.8 mL subcutane ous kit Inject 40 mg every 2 weeks by subcutan eous route. 07/30 completed Not Available Not Available Not Available Enbrel SureClick 50 mg/mL (1 mL) subcutane ous pen injector 10/04 completed Not Available Not Available Not Available Orencia 125 mg/mL subcutane ous syringe Inject 1 mL every week by subcutan eous route. 02/11 completed Not Available Not Available Not Available calcium alginate (bulk) 100 % powder Apply to wound and cover with dressing daily 03/22 completed Not Available Not Available Not Available methotrex ate 2.5 mg tablet Take 8 tablets every week by oral route. 11/05 completed Not Available Not Available Not Available Vicodin 5 mg-300 mg tablet Take 2 tablets every 4 hours by oral route with meals for 14 days. 07/30 completed Not Available Not Available Not Available Eliquis 2.5 mg tablet 09/18 completed Not Available Not Available Not Available Probiotic (S.boular dii) 250 mg capsule Take 1 capsule twice a day by oral route for 7 days. 09/28 completed Not Available Not Available Not Available Shingrix (PF) 50 mcg/0.5 mL intramusc ular suspensio n, kit ADM 0.5ML IM UTD 11/21 completed Not Available Not Available Not Available Fluad Quad [id number] (65yr up)(PF) 60 mcg (15 mcg x 4)/0.5mL IM syringe ADM 0.5ML IM UTD 11/21 completed Not Available Not Available Not Available Sutab 1.479-0.1 88-0.225 gram tablet 02/11 completed Not Available Not Available Not Available Gemtesa 75 mg tablet Take 1 tablet every day by oral route as directed . active RX by Dr. Butcher Not Available Not Available Not Available Vitals Date Recorded Body height Provider Name an d Address Organization Details Last Updated DateTime 02/12/2023 154.94 cm Melinda [facility] 02/12/2023 11:29:31 Date Recorded Body mass index (BMI) Body weight Provider Name and Address Organization Details Last Updated DateTime 02/12/2023 42.1 kg/m2 312740.1 g [facility] 02/12/2023 11:32:36 Date Recorded Body temperature Provider Name a nd Address Organization Details Last Updated DateTime 02/12/2023 98 [degF] Melinda [facility] 02/12/2023 11:32:38 Date Recorded Oxygen saturation Oxygen saturation in Arterial blood by Pulse oximetry Provider Name and Address Organization Details Last Updated DateTime 02/12/2023 97 % 97 % Melinda Calle [facility] 02/12/2023 11:35:06 Date Recorded Heart rate Provider Name an d Address Organization Details Last Updated DateTime 02/12/2023 67 /min Melinda Calle [facility] 02/12/2023 11:35:13 Date Recorded Respiratory rate Provider Name a nd Address Organization Details Last Updated DateTime 02/12/2023 20 /min Melinda Calle [facility] 02/12/2023 11:35:17 Date Recorded Pain severity - 0-10 verbal numeric rating [Score] - Reported Provider Name and Address Organization Details Last Updated DateTime 02/12/2023 7 Melinda Calle [facility] 02/12/2023 11:35:21 Date Recorded Body height Provider Name an d Address Organization Details Last Updated DateTime 09/18/2023 154.94 cm Reny ellis RN [address] [place] [address], [phone], [facility] 09/18/2023 10:58:27 Date Recorded Body mass index (BMI) Body weight Provider Name and Address Organization Details Last Updated DateTime 09/18/2023 42.4 kg/m2 359360.41 g Reny Abraham RN [address] [place] [address], [phone], [facility] 09/18/2023 11:02:12 Date Recorded Body temperature Provider Name a nd Address Organization Details Last Updated DateTime 09/18/2023 97.7 [degF] Reny Abraham RN [address] [place] [address], [phone], [facility] 09/18/2023 11:06:17 Date Recorded Heart rate Provider Name an d Address Organization Details Last Updated DateTime 09/18/2023 74 /min Reny ellis RN [address] [place] [address], [phone], [facility] 09/18/2023 11:06:24 Date Recorded Oxygen saturation Oxygen saturation in Arterial blood by Pulse oximetry Provider Name and Address Organization Details Last Updated DateTime 09/18/2023 97 % 97 % Reny Abraham RN [address] [place], [phone], [facility] 09/18/2023 11:06:26 Date Recorded Body height Provider Name an d Address Organization Details Last Updated DateTime 11/25/2023 154.94 [facility] 09:01:10 Date Recorded Body mass index (BMI) Body weight Provider Name and Address Organization Details Last Updated DateTime 11/25/2023 42.3 kg/m2 732512.69 g [facility] 09:03:40 Date Recorded Body temperature Provider Name a nd Address Organization Details Last Updated DateTime 11/25/2023 98.6 [degF] [facility] 09:15:12 Date Recorded Respiratory rate Provider Name a nd Address Organization Details Last Updated DateTime 11/25/2023 18 /min Melindasam Calle [facility] 11/25/2023 09:16:31 Date Recorded Oxygen saturation Oxygen saturation in Arterial blood by Pulse oximetry Provider Name and Address Organization Details Last Updated DateTime 11/25/2023 97 % 97 % [facility] 09:16:43 Date Recorded Heart rate Provider Name an d Address Organization Details Last Updated DateTime 11/25/2023 65 /min [facility] 09:16:46 Date Recorded Pain severity - 0-10 verbal numeric rating [Score] - Reported Provider Name and Address Organization Details Last Updated DateTime 11/25/2023 0 [facility]/25/[facility] 09:16:49 Date Recorded Body height Provider Name an d Address Organization Details Last Updated DateTime 05/19/2024 154.94 cm Natalia Olea [facility] 05/19/2024 08:59:48 Date Recorded Body mass index (BMI) Body weight Provider Name and Address Organization Details Last Updated DateTime 05/19/2024 43.8 kg/m2 463890.43 g Natalia Olea [facility] 05/19/2024 09:07:56 Date Recorded Respiratory rate Provider Name a nd Address Organization Details Last Updated DateTime 05/19/2024 18 /min Natalia Olea [facility] 05/19/2024 09:11:00 Date Recorded Pain severity - 0-10 verbal numeric rating [Score] - Reported Provider Name and Address Organization Details Last Updated DateTime 05/19/2024 7 Natalia Olea [facility] 05/19/2024 09:11:07 Date Recorded Oxygen saturation Oxygen saturation in Arterial blood by Pulse oximetry Provider Name and Address Organization Details Last Updated DateTime 05/19/2024 96 % 96 % Natalia Olea [facility] 05/19/2024 09:17:52 Date Recorded Heart rate Provider Name an d Address Organization Details Last Updated DateTime 05/19/2024 64 /min Natalia Olea [facility] 05/19/2024 09:17:55 Date Recorded Body temperature Provider Name a nd Address Organization Details Last Updated DateTime 05/19/2024 97.3 [degF] Natalia Olea [facility] 05/19/2024 09:17:58 Date Recorded Body height Provider Name an d Address Organization Details Last Updated DateTime 09/08/2024 154.94 cm Shital Salced[facility] 09/08/2024 15:53:37 Date Recorded Body mass index (BMI) Body weight Provider Name and Address Organization Details Last Updated DateTime 09/08/2024 45 kg/m2 320651.98 g Shital Salcedo [facility] 09/08/2024 15:56:50 Date Recorded Pain severity - 0-10 verbal numeric rating [Score] - Reported Provider Name and Address Organization Details Last Updated DateTime 09/08/2024 4 Shital Salcedo [facility] 09/08/2024 16:04:36 Date Recorded Body temperature Provider Name a nd Address Organization Details Last Updated DateTime 09/08/2024 98.1 [degF] Shital Salcedo [facility] 09/08/2024 16:06:41 Date Recorded Heart rate Provider Name an d Address Organization Details Last Updated DateTime 09/08/2024 67 /min Shital [facility] 09/08/2024 16:06:50 Date Recorded Respiratory rate Provider Name a nd Address Organization Details Last Updated DateTime 09/08/2024 18 /min Shital [facility] 09/08/2024 16:06:52 Date Recorded Oxygen saturation Oxygen saturation in Arterial blood by Pulse oximetry Provider Name and Address Organization Details Last Updated DateTime 09/08/2024 97 % 97 % Shital Matias [facility] 09/08/2024 16:06:54 Date Recorded Systolic blood pressure Diastolic blood pressure Provider Name and Address Organization Details Last Updated DateTime 02/12/2023 132 mm[Hg] 70 mm[Hg] Melinda Calle [facility] 02/12/2023 11:33:44 Date Recorded Systolic blood pressure Diastolic blood pressure Provider Name and Address Organization Details Last Updated DateTime 09/18/2023 134 mm[Hg] 76 mm[Hg] Reny Abraham, RN [address] [place] [address], [phone], [place] [facility] 09/18/2023 11:07:50 Date Recorded Systolic blood pressure Diastolic blood pressure Provider Name and Address Organization Details Last Updated DateTime 11/25/2023 128 mm[Hg] 72 mm[Hg] Melinda Calle [facility] 11/25/2023 09:16:25 Date Recorded Systolic blood pressure Diastolic blood pressure Provider Name and Address Organization Details Last Updated DateTime 05/19/2024 118 mm[Hg] 70 mm[Hg] Natalia Olea [facility] 05/19/2024 09:18:09 Date Recorded Systolic blood pressure Diastolic blood pressure Provider Name and Address Organization Details Last Updated DateTime 09/08/2024 120 mm[Hg] 68 mm[Hg] Shital Salcedo [facility] 09/08/2024 16:08:05 Social History Question Answer Notes LastModified by Organization Details LastModified Time Tobacco Smoking Status Former Smoker quit over 30 years ago Not Available [facility] 09/08/2022 21:09:45 Do You Have An Advance Directive? Yes No Changes At This Time MIGRATION.107 Information not available 09/08/2022 What Is Your Level Of Alcohol Consumption? Occasional MIGRATION.107 Information not available 09/08/2022 Are You Blind Or Do You Have Difficulty Seeing? No Information not available 02/11/2023 What Is Your Level Of Caffeine Consumption? Heavy MIGRATION.107 [id number] Information not available 09/08/2022 How Much Tobacco Do You Chew? None MIGRATION.107 [id number] Information not available 09/08/2022 In The 14 Days Before Symptom Onset, Have You Had Close Contact With A Laboratory-confi rmed COVID-19 While That Case Was Ill? No MIGRATION.107 Information not available 09/08/2022 In The 14 Days Before Symptom Onset, Have You Had Close Contact With A Person Who Is Under Investigation For COVID-19 While That Person Was Ill? No MIGRATION.107 [id number] Information not available 09/08/2022 Are You Currently Employed? No MIGRATION.107 [id number] Information not available 09/08/2022 Are You Deaf Or Do You Have Serious Difficulty Hearing? No MIGRATION.107 [id number] Information not available 09/08/2022 What Type Of Diet Are You Following? REGULAR MIGRATION.107 Information not available 09/08/2022 Which Illicit Or Recreational Drugs Have You Used? None MIGRATION.107 [id number] Information not available 09/08/2022 Do You Or Have You Ever Used E-cigarettes Or Vape? Never Used Electronic Cigarettes MIGRATION.107 [id number] Information not available 09/08/2022 What Is The Highest Grade Or Level Of School You Have Completed Or The Highest Degree You Have Received? 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 No Information not available 02/11/2023 Are There Any Guns Present In Your Home? Yes MIGRATION.010 [id number] Information not available 09/08/2022 Which Of Your Hands Is Dominant? Right MIGRATION.010 [id number] Information not available 09/08/2022 Do You Use Insect Repellent Routinely? Yes MIGRATION.010 [id number] Information not available 09/08/2022 Where Do You Live? SingleLevelHouse MIGRATION.010 [id number] Information not available 09/08/2022 Are You In An Abusive/frighten ing Relationship? No MIGRATION.010 [id number] Information not available 09/08/2022 Do You Feel Safe At Home Yes Information not available 02/11/2023 Do You Feel Hopeless Or Helpless No Information not available 02/11/2023 Have You Had Thoughts Of Suicide? No MIGRATION.010 [id number] Information not available 09/08/2022 Are You Having Any Suicidal Thoughts Now? No MIGRATION.010 [id number] Information not available 09/08/2022 Have You Previously Attempted Suicide? No MIGRATION.010 [id number] Information not available 09/08/2022 Do You Have A Plan To Hurt Yourself Or Others? No Information not available 02/11/2023 Has A Family Member Or Someone Close To You Committed Suicide Or Have You Been A Witness To Suicide? No MIGRATION.010 [id number] Information not available 09/08/2022 Have You Fallen In The Last 3 Months? No MIGRATION.0108 [id number] Information not available 09/08/2022 Are You Blind Or Do You Have Difficulty Seeing? No Wears Reading Glasses MIGRATION.107 [id number] Information not available 09/08/2022 Live Alone Or With Others? With Others MIGRATION.107 [id number] Information not available 09/08/2022 Do You Have A Plan To Hurt Yourself Or Others? No MIGRATION.010 [id number] Information not available 09/08/2022 Do You Feel Hopeless Or Helpless? No MIGRATION.0108 [id number] Information not available 09/08/2022 What Was The Date Of Your Most Recent Tobacco Screening? 09/08/2024 [email or web address] Information not available 09/08/2024 Have You Ever Been Counseled For Unhealthy Alcohol Use? No MIGRATION.010 [id number] Information not available 09/08/2022 Do You Have Any Pets? No MIGRATION.010 [id number] Information not available 09/08/2022 What Is Your Relationship Status? MIGRATION.107 [id number] Information not available 09/08/2022 Do You Use Your Seat Belt Or Car Seat Routinely? Yes MIGRATION.8 [id number] Information not available 09/08/2022 Do You Have Smoke And Carbon Monoxide Detectors In Your Home? Yes MIGRATION.107 [id number] Information not available 09/08/2022 Are You Passively Exposed To Smoke? No MIGRATION.107 [id number] Information not available 09/08/2022 Do You Or Have You Ever Used Smokeless Tobacco? Never Used Smokeless Tobacco MIGRATION.107 [id number] Information not available 09/08/2022 Are There Any Smokers In Your House? No MIGRATION.107 [id number] Information not available 09/08/2022 How Much Tobacco Do You Smoke? No MIGRATION.107 [id number] Information not available 09/08/2022 Do You Participate In [employer]? Yes MIGRATION.107 [id number] Information not available 09/08/2022 Do You Feel Stressed (tense, Restless, Nervous, Or Anxious, Or Unable To Sleep At Night)? NJ17747-3 MIGRATION.107 [id number] Information not available 09/08/2022 Do You Use Any Illicit Or Recreational Drugs? No MIGRATION.8 [id number] Information not available 09/08/2022 Do You Use Sunscreen Routinely? Yes MIGRATION.8 [id number] Information not available 09/08/2022 Has Tobacco Cessation Counseling Been Provided? No MIGRATION.8 [id number] Information not available 09/08/2022 How Many Years Have You Smoked Tobacco? 0 MIGRATION.8 [id number] Information not available 09/08/2022 Have You Recently Traveled Abroad? No MIGRATION.8 [id number] Information not available 09/08/2022 Are You Currently In School? No MIGRATION.107 [id number] Information not available 09/08/2022 Do You Or Have You Ever Used Any Other Forms Of Tobacco Or Nicotine? No MIGRATION.8 [id number] Information not available 09/08/2022 Sex: Female Functional Status Question Answer Note LastModified by Organizat ion Details LastModified Time Do you have difficulty walking or climbing stairs? Yes back issues MIGRATION.18334 [id number] Information not available 09/08/2022 Do you have transportation difficulties? No MIGRATION.09193 [id number] Information not available 09/08/2022 Are you able to walk? YESWOREST MIGRATION.77006 [id number] Information not available 09/08/2022 Do you have difficulty doing errands alone? No MIGRATION.13505 [id number] Information not available 09/08/2022 Are you able to care for yourself? Yes Information n ot available 02/11/2023 Do you have difficulty dressing or bathing? No MIGRATION.21151 [id number] Information not available 09/08/2022 What is your exercise level? Moderate currently going to PT MIGRATION.47651 [id number] Information not available 09/08/2022 Mental Status Question Answer Note LastModified by Organizat ion Details LastModified Time Do you have difficulty concentrating, remembering or making decisions? No MIGRATION.[id number] 1 Information not available 09/08/2022 Family History Relationship Description Onset Age of this Age Resolved Age Notes LastModified by Organization Details LastModified Time Mother Arthritis MIGRATION.443 [id number] Not available 09/08/2022 21:09:36 Father Congestive heart failure MIGRATION.876 [id number] Not available 09/08/2022 21:09:36 Medical History Condition Response ARTHRITIS Y HEARTBURN / REFLUX Y DEPRESSION (INCLUDING POST ) Y BOWEL PROBLEMS Y BACK / NECK PROBLEMS Y SLEEP DISORDER Y HAVE YOU BEEN HOSPITALIZED OR SEEN IN [facility] ER IN THE PAST YEAR ? Y CANCER: SPECIFY Y URINARY/BLADDER/KIDNEY PROBLEMS Y Gynecological History Statement/Question Response Date of Last Mammogram 09/25/2023 Date of Last Colonoscopy 12/08/2015 Date of Last Mammogram 09/25/2023 Date of Last Colonoscopy 12/08/2015 Most Recent Bone Density 09/12/2022 Obstetrics History GPAL:G 3 P 0 0 0 0 Immunizations Vaccine Type Date Status Note Provider Nam e and Address Organization Details Recorded Time Influenza, split virus, trivalent, preservative 4 completed Not Available [facility] 09/07/2022 21:49:45 Influenza, split virus, trivalent, preservative 6 completed Not Available [facility] 09/07/2022 21:49:45 Influenza, split virus, trivalent, preservative 3 completed Not Available [facility] 09/07/2022 21:49:45 Influenza, split virus, quadrivalent, PF 2 completed [facility] 09/07/[facility]22 21:49:45 zoster live 2 completed Melinda Goetting null, [facility] 11/25/2023 09:17:39 Tdap 9 completed Not Available [facility] 09/07/2022 21:49:46 pneumococcal polysaccharide PPV23 8 completed Not Available [facility] 09/07/2022 21:49:46 Influenza, high-dose, trivalent, PF 8 completed Not Available [facility] 09/07/2022 21:49:46 Pneumococcal conjugate PCV 13 6 completed Melinda Goetting null, [facility] 11/25/2023 09:17:39 Influenza, high-dose, trivalent, PF 4 completed NELLIE BECK MD [address] [place] [address], [phone], [facility] 05/20/2024 09:48:00 Influenza, split virus, trivalent, preservative 7 completed Melinda Goetting null, [facility] 11/25/2023 09:17:39 COVID-19, mRNA, LNP-S, PF, 30 mcg/0.3 mL dose 1 completed Not Available [facility] 09/08/2022 21:14:34 COVID-19, mRNA, LNP-S, bivalent, PF, 30 mcg/0.3 mL dose 2 completed Melinda Goetting null, [facility] 11/25/2023 09:17:38 MMR 3 completed Not Available [facility] 09/08/2022 21:14:34 Influenza, high-dose, quadrivalent, PF 2 completed Melinda Goetting null, [facility] 11/25/2023 09:17:38 COVID-19, mRNA, LNP-S, PF, 30 mcg/0.3 mL dose 1 completed Melinda Goetting null, [facility] 11/25/2023 09:17:38 Influenza, high-dose, quadrivalent, PF 1 completed Melinda Goetting null, [facility] 11/25/2023 09:17:38 COVID-19, mRNA, LNP-S, PF, 30 mcg/0.3 mL dose 1 completed Melinda Goetting null, [facility] 11/25/2023 09:17:38 COVID-19, mRNA, LNP-S, PF, 30 mcg/0.3 mL dose 2 completed Melinda Goetting null, [facility] 11/25/2023 09:17:38 Tdap 1 completed Melinda Goetting null, [facility] 11/25/2023 09:17:38 Influenza, high-dose, quadrivalent, PF 0 completed Melinda Goetting null, [facility] 11/25/2023 09:17:38 Pneumococcal conjugate PCV20, polysaccharide QGC247 conjugate, adjuvant, PF 2 completed Not Available [facility] 09/08/2022 21:14:36 Influenza, high-dose, trivalent, PF 9 completed Not Available [facility] 09/08/2022 21:14:36 Influenza, high-dose, quadrivalent, PF 3 completed Melinda Goetting null, [facility] 11/25/2023 09:17:38 zoster recombinant 9 completed Melinda Goetting null, [facility] 11/25/2023 09:17:38 zoster recombinant 9 completed Melinda Goetting null, [facility] 11/25/2023 09:17:38 Past Encounters Encounter ID Performer Location Encounter Start Date Encounter Closed Date Diagnosis/Indication Diagnosis SNOMED-CT Code Diagnosis ICD10 Code Diagnosis Note [id number] [address] [address] 01/25/2016 00:00:00 01/25/2016 17:03:[id number] [address] 02/01/2016 00:00:00 02/07/2016 19:10:59 [id number] [facility] [address] [place] [address] 02/12/2016 00:00:00 07/11/2016 11:28:49 [id number] [facility] [address] [place] [address] 08/07/2016 00:00:00 08/14/2016 15:11:28 [id number] [facility] [address] [place] [address] 12/25/2016 00:00:00 12/25/2016 14:31:22 [id number] [facility] [address] [place] [address] 01/16/2017 00:00:00 01/16/2017 11:08:50 [id number] [facility] [address] [place] [address] 02/27/2017 00:00:00 02/27/2017 10:57:52 [id number] [facility] [address] [place] [address] [place] [address] 05/22/2017 00:00:00 06/04/2017 13:39:43 [id number] [facility] [address] [place] [address] 07/10/2017 00:00:00 08/07/2017 15:28:00 [id number] [facility] [address] [place] [address] 5 10/23/2017 00:00:00 12/04/2017 11:08:29 [id number] [facility] [address] [place] [address] 5 10/30/2017 00:00:00 10/30/2017 17:51:45 [id number] [facility] [address] [place] [address] 11/20/2017 00:00:00 11/26/2017 14:00:21 [id number] [facility] [address] [place] [address] 12/18/2017 00:00:00 01/08/2018 17:06:30 [id number] [facility] [address] [place] [address] 03/30/2019 00:00:00 03/30/2019 17:09:24 [id number] [facility] [address] [place] [address] [place] [address] 06/07/2019 00:00:00 06/07/2019 13:55:07 [id number] [facility] [address] [place] [address] [place] [address] 07/26/2019 00:00:00 07/26/2019 16:19:29 [id number] [facility] [address] [place] [address] [place] [address] 08/09/2019 00:00:00 08/09/2019 15:14:36 [id number] [facility] [address] [place] [address] [place] [address] 08/23/2019 00:00:00 08/23/2019 15:07:31 [id number] [facility] [address] [place] [address] [place] [address] 09/13/2019 00:00:00 09/13/2019 15:42:15 [id number] [facility] [address] [place] [address] [place] [address] 09/27/2019 00:00:00 09/27/2019 15:21:56 [id number] [facility] [address] [place] [address] [place] [address] 09/28/2019 00:00:00 09/28/2019 17:09:00 [id number] [facility] [address] [place] [address] [place] [address] 03/22/2020 00:00:00 03/22/2020 15:43:02 [id number] [facility] [address] [place] [address] [place] [address] 05/16/2020 00:00:00 05/16/2020 16:13:59 [id number] [facility] [address] [place] [address] [place] [address] 05/30/2020 00:00:00 05/30/2020 10:01:02 [id number] [facility] [address] [place] [address] [place] [address] 07/10/2020 00:00:00 07/10/2020 12:08:34 [id number] [facility] [address] [place] [address] [place] [address] 09/20/2020 00:00:00 09/20/2020 12:28:42 [id number] [facility] [address] [place] [address] 01/17/2021 00:00:00 01/17/2021 12:58:14 [id number] [facility]_[address] [place] [address] 05/15/2021 00:00:00 05/15/2021 19:33:[id number] [place] [place] [address] 07/16/2021 00:00:00 07/16/2021 14:00:[id number] [address] 09/18/2021 00:00:00 09/18/2021 13:14:[id number] [address] 09/20/2021 00:00:00 09/20/2021 12:41:[id number] [address] 11/05/2021 00:00:00 11/05/2021 14:12:56 [id number] [facility]_[address] [address] 01/03/2022 00:00:00 01/03/2022 13:43:[id number] [address] 05/09/2022 00:00:00 05/09/2022 14:06:24 [id number] [facility] [address] 09/05/2022 00:00:00 09/05/2022 17:46:41 [id number] HUE Bryan [address] [address] 02/12/2023 11:27:14 02/12/2023 12:19:42 Osteoarthritis of knee [id number] M17.9 Osteoarthr itis of left knee and ready for arthroplas ty on 02-24-[address] Paris. Pre-surger y evaluation 599346554 Z01.818 Physical was done today. Will wait on labs and EKG before releasing pt medically. Pt aware. Female str ess incontinence [id number] N39.3 Pt is still having incontinen ce of urine when she coughs or sneezes. Willi increase her oxybutynin ER 10mg to BID and see how she does. F-up in 2-3 mo [id number] Huyen Campo, ANP-C [address] [address] 09/18/2023 10:51:13 09/18/2023 18:56:53 Adult health examination [id number] Z00.00 Patient presented to office today for their Medicare Annual Wellness Visit.Educ ation was provided on healthy nutrition, including a diet rich in fruits and vegetables , minimizing simple carbohydra kera, salt, and saturated fats. Encouraged regular cardiovasc ular exercise such as walking at least 30 minutes daily, 5 times per week.Empha sized preventive health measures and educated pt on fall prevention and community- based lifestyle interventi ons to help reduce health risks and promote healthy living.Delmis rhiannon follows with derm, pulm, vision, cardio, rheum.Nani ent's BMI is 42.4. Screening for disorder 907348069 Z13.89 Body mass index 40+ - severely obese 341330072 Z68.41 Screening mammography 24 290809 Z12.31 Hyperlipidemia 35168561 E78.5 [id number] NELLIE BECK MD [address] [address] 11/25/2023 08:53:00 11/25/2023 11:38:44 Essential hypertension 05625979 I10 - est; chronic, well controll- pt having chronic dry cough so we discussed trying to switch her off her ACEI to an ARB- STOP lisinopril 20 mg BID- START trial of losartan 50 m daily; if BPs running 140/90 or higher aftera 5-7 days then increase to 100 mg daily- continue amlodipine 10 mg daily, metoprolol 25 mg bid- labs due, ordered- pt to monitor BP at home and f/u w/ me in 3-4 wks Hyperlipidemia 22853189 E78.5 - est; chronic- continue atorvastat in 40 mg daily- lipids due Mixed anxi ety and depressive disorder 884767256 F41.8 - est; chronic, well controlled - denies SI/HI- continue Sertraline 100 mg daily- will update labs Obstructiv e sleep apnea syndrome 62194753 G47.33 - est; chronic- continue CPAP at 10 cm H2O Prediabetes 137584425 R7 3.03 - est; chronic- A1C was 6.1% in 2021 and overdue- labs ordered Postmenopa usal osteopenia 429011692 M85.80 - est; chronic- DEXA done Sep 2022 was normal, due 2024- will check vit D w/ labs- pt taking Fosamax Chronic insomnia 2470703 04 F51.04 - est; chronic, stable- continue trazodone 50 mg qhs HIV screening 179329576 Z11.4 - d/w pt; screening lab not ordered Screening mammography of bilateral breasts [id number] 37882 Z12.31 - UTD; due Sep 2024 Patient ne w to provider [id number] 17723 Z76.89 - reviewed pt's past medical history and current concerns as above- also reviewed health [employer] e items- spent 30 minutes with pt today Urinary incontinence 165 870432 R32 - est; chronic- oxybutynin not helping- will refer to Urology Chronic cough 26005254 R 05.3 - chronic cough for pt- she has a history of small airway disease, sees pulmonolog y who put her on albuterol, she also has allergies/ postnasal drip, takes an ACEI and sometimes has reflux- d/w pt today- recommend stopping ACEI; will switch to ARB- recommend pt try flonase and cetirizine for allergies/ PND- f/u 3-4 wks and if not improving, consider adding antacid or inhaled corticoste roid- did d/w pt she could call her pulmonolog ist as well for f/u Chronic constipation 236 657208 K59.09 - est; chronic- recommend using MiraLax daily instead of laxatives [id number] NELLIE BECK MD [facility]_[address] [address] 05/19/2024 08:55:31 05/19/2024 13:04:59 Chronic cough 50873530 R05.3 - resolved after stopping her ACEI and switching her to an ARB- lugns CTA- f/u prn Essential hypertension 81647712 I10 - est; chronic, well controlled - continue losartan 50 m daily, amlodipine 10 mg daily, metoprolol 25 mg bid- labs due, ordered- pt to monitor BP at home a- f/u w/ labs q6 mo (next due November 23) - pt did labs after appt today:- GFR>60, Cr 0.6, normal lytes and LFTs Hyperlipidemia 32130712 E78.5 - est; chronic- continue atorvastat in 40 mg daily- lipids due; ordered- f/u q6 mo - pt did labs after appt today:- LDL 71, HDL 35, TG 216 Mixed anxi ety and depressive disorder 598205662 F41.8 - est; chronic, well controlled - denies SI/HI- continue Sertraline 100 mg daily- will update labs - pt did labs after appt today:-TSH normal Obstructiv e sleep apnea syndrome 51156210 G47.33 - est; chronic- continue CPAP at 10 cm H2O Prediabetes 808114955 R7 3.03 - est; chronic- A1C was 6.4% in October 2023- labs ordered- encouraged pt to continue to work on lowering carbs/star ches/sugar s in diet - pt did labs after appt today:- A1C now 6.46% (we will contact pt w/ results) Postmenopa usal osteopenia 748115514 M85.80 - est; chronic- DEXA done Sep 2022 was normal, due 2024- continue Fosamax- vit D was low at 20 in November 22- continue daily vit D3 Chronic insomnia 7596062 04 F51.04 - est; chronic, stable- continue trazodone 50 mg qhs Screening mammography of bilateral breasts 3278540249 09176 Z12.31 - UTD; due Sep 2024 (already ordered) Urinary incontinence 165 582527 R32 - est; chronic- recently seen by Urology, Dr Butcher- will be starting trial of Gemtesa Chronic constipation 236 331546 K59.09 - est; chronic- recommend using MiraLax daily instead of laxatives- pt doing an OTC stool softner and doing well Administra tion of influenza vaccine 49320646 Z23 - flu vaccine given today Rheumatoid arthritis 698 51398 M06.9 - est; chronic- followed by Dr Justin Laws in rheumatolo gy Squamous c ell carcinoma of skin of face 561777110 C44.320 - est; chronic- followed by Dermatolog y [id number] NELLIE BECK MD [facility] [address] 09/08/2024 15:38:22 09/09/2024 23:52:48 Pre-surgery evaluation 282798810 Z01.818 - 74 yo F scheduled for a peripheral nerve evaluation with Dr. Adam Cat on 09 Sep 2024 (tomorrow) - pt reports that she is going to be getting a stimulator to help the sacral nerves that help control her bladder and/or bowel- to be done at [facility]- Local anesthesia only- tomorrow is the placement of 2 temporary leads and then has f/u in 7 days; leads removed. if reaches 50% improvemen t or greater she will be eligible for permanent stimulator . - pt is postmenopa usal- previous surgeries/ anesthesia experience s: pt has had multiple surgical procedures in past, no previous reactions to anesthesia or complicati ons per pt- comorbidit ies: HTN, bradycardi a, anxiety, HLP, ALISSON, RA, prediabete s- pt denies current fevers, cough, SOB, chest pain, dysuria, abdominal pain- non-smoker - pt denies history of lung disease, heart disease including CAD, [place], CHF, arrhythmia s; does have ALISSON and uses a CPAP- vaccinatio n status: flu/PNA are UTD- anticoagul ants taken: none and pt has held fish oils, vit D for last 2 wks as well- no further testing or evaluation recommende d prior to procedure tomorrow Essential hypertension 25096554 I10 - est; chronic, well controlled - continue losartan 50 m daily, amlodipine 10 mg daily, metoprolol 25 mg bid- labs UTD as of May 25, GFR >60, Cr 0.6- f/u q6 mo Obstructiv e sleep apnea syndrome 83227210 G47.33 - est; chronic- continue CPAP at 10 cm H2O- considered during medical decision making today Prediabetes 062359464 R7 3.03 - est; chronic- A1C was 6.46% in May 2024- encouraged pt to continue to work on lowering carbs/star ches/sugar s in diet- due for labs and f/u in October 2024 Rheumatoid arthritis 698 97806 M06.9 - est; chronic- followed by Dr Justin Laws in rheumatolo gy- on chronic immunosupp ressant medication s including leflunomid e and methotrexa te- considered during medical decision making today Squamous c ell carcinoma of skin of face 245642960 C44.320 - est; chronic- followed by Dermatolog y- encouraged pt to get f/u scheduled SAMI for area L forehead as it causing her some discomfort Health Concerns Section Related Observation LastModified by Organization Detai ls LastModified Time None Recorded Concern Status LastModified by Organization Details LastModified Time None Recorded Advance Directives Directive Y: no changes at this time Payers Encounter Date Sequence Insurance Name Policy Number Policy Cano Covered Member ID Cano Member ID Guarantor Name 02/12/2023 1 [place] Verenice Anderson Biffar [id number] Verenice M Biffar 02/12/2023 2 WPS - FOR LIFE (MEDICARE SUPPLEMENT) Verenice M Biffar [id number] Verenice Anderson Biffar 09/18/2023 1 [place] Verenice Anderson Biffar [id number] Verenice M Biffar 09/18/2023 2 WPS - FOR LIFE (MEDICARE SUPPLEMENT) Verenice Anderson Biffar [id number] Verenice Anderson Biffar 11/25/2023 1 [place] Verenice Anderson Biffar [id number] Verenice M Biffar 11/25/2023 2 WPS - FOR LIFE (MEDICARE SUPPLEMENT) Verenice M Biffar [id number] Verenice M Biffar 05/19/2024 1 [place] Verenice M Biffar [id number] Verenice M Biffar 05/19/2024 2 [employer]PS - FOR LIFE (MEDICARE SUPPLEMENT) Verenice M Biffar [id number] Verenice M Biffar 09/08/2024 1 [place] Verenice M Biffar [id number] Verenice M Biffar 09/08/2024 2 WPS - FOR LIFE (MEDICARE SUPPLEMENT) Verenice M Biffar [id number] Verenice Anderson Yusuf Notes Date Note Type Note Provider Name and Address Organization Details Recorded Time 02/12/2023 text/html Pt is here for medical clearance for total left knee on 02/24/23. and routine follow up. Pt had her preop testing done yesterday and will make sure results are sent here. HUE Bryan [address] [place] [address], [phone], [facility] 02/12/2023 12:13:11 09/18/2023 text/html Patient presente d to office today for their Medicare Annual Wellness Visit. Her previous pcp has retired, she will be establishing with Dr. Beck in October. She has no complaints. TERESE Laird-Rafi [address] [place] [address], [phone], [facility] 09/18/2023 13:37:17 11/25/2023 text/html 73 yo F here to establish care- previous PCP: HUE Carpio, last seen February 21; also had MWE with JESSY Campo here in Sep 24- specialists: Derm, Pulm, Rheum, Cardio- pharmacy: [facility]- rad: here- lab: here -- chronic cough, small airway disease: since , almost 3 mo now. been checked a few times she says but not sick. getting worse per pt. pulm says from multifactorial, has postnasal drip, ACEI, small airway disease. not using allergy meds, not using albuterol often. not taking reflux med but has some heartburn. just dry cough, hacking. no SOB. has had some wheezing. -- HTN: on amlodipine 10 mg daily, lisinopril 20 mg BID, metoprolol 25 mg bid. sees cardiology.- Jul 24, GFR >60, Cr 0.6 -- HLP: on atorvastatin 40 mg daily. lipids Jul 24, LDL 74, TG 226, HDL 39. LFTs normal. -- anxiety/depression: on sertraline 100 mg daily. doing well. started when her mom . -- chronic insomnia: on trazodone 50 mg qhs. -- ALISSON: on CPAP at 10 cm H2O. -- prediabetes: A1C 6.1% in 2021, has not been checked since. -- osteopenia: on Fosamax. no vit D lab in chart. DEXA was normal in Sep 2022. -- hx SCC of face: sees Keri in Derm. -- hx breast cancer: hx mastectomy R side, 1994. -- RA, OA: on leflunomide, methotrexate, nabumetone. sees Rheumatology. -- OAB: on oxybutynin ER 10 mg bid. not helping. - last labs done: Jul 24- colon cancer screenin- lung cancer screening: n/a - does not meet criteria- mammogram: Sep 24 - due Sep 25- DEXA: normal Sep 23- HIV screening: due - pt declines- HCV screening: neg 2021- vaccines: due for covid, RSV- eye exam: due- dental exam: due- exercise: none- skin concerns: sees Derm- living will/medical POA: yes- alcohol use: occasional- tobacco use: former - quit many yrs ago.- illicit drug use: none NELLIE BECK MD [address] [place] [address], [phone], [place] [facility] 11/25/2023 22:26:52 05/19/2024 text/html 73 yo F here w/ for f/u- saw me last in November 22- specialists: Derm, Pulm, Rheum, Cardio- pharmacy: [facility]- rad: here- lab: here -- Dr Migdalia Laws rhuematologist ordered recent labs. - labs Apr 24:- GFR >60, Cr 0.7- ALT 21, AST 24 -- leukocytosis: WBC 14.4 in Apr 24. pt denies infection. -- c/o that pt is always hot, even when temp in house is low. -- chronic cough: stopped ACEI and switched to ARB in November 22. put her on zyrtec, flonase. this did help her cough.- she has a history of small airway disease, sees pulmonology who put her on albuterol, she also has allergies/postnasal drip, takes an ACEI and sometimes has reflux. pt says she is not really using the albuterol. -- HTN: last visit November 22, stopped lisinopril 20 mg BID and started her on trial of losartan 50 m daily; if BPs running 140/90 or higher aftera 5-7 days then increase to 100 mg daily. continued her on amlodipine 10 mg daily, metoprolol 25 mg bid. feeling well on this. she does check her BP at home daily.-- HLP: on atorvastatin 40 mg daily. LDL 71 in November 22, TG 229, HDL 36.-- mixed anxiety and depressive disorder: on Sertraline 100 mg daily. no SI/HI.-- ALISSON: using CPAP at 10 cm H2O. working well. -- prediabetes: A1C was 6.1% in 2021 and overdue; A1C in November 22 was 6.3%.-- postmenopausal osteopenia: on Fosamax. vit D was low 20 in November 22.- DEXA done Sep 2022 was normal, due 2024 -- chronic insomnia: on trazodone 50 mg qhs. -- urinary incontinence: oxybutynin was not helping so I referred her to Urology. she saw Dr Butcher, starting Gemtesa tomorrow, stopped caffeine.-- chronic constipation: recommended MiraLax. she is not using that, just using OTC stool softner that is working. - last labs done: Jul 24- colon cancer screenin- lung cancer screening: n/a - does not meet criteria- mammogram: Sep 24 - due Sep 25- DEXA: normal Sep 23- HIV screening: due - pt declines- HCV screening: neg 2021- vaccines: due for covid, RSV- eye exam: due- dental exam: due- exercise: none- skin concerns: sees Derm- living will/medical POA: yes- alcohol use: occasional- tobacco use: former - quit many yrs ago.- illicit drug use: none NELLIE BECK MD [address] [place] [address], [phone], [place] [facility] 05/20/2024 10:01:33 09/08/2024 text/html 73 yo F here w/ for pre-procedure evaluation- saw me last in May 25- specialists: Derm, Pulm, Rheum, Cardio- pharmacy: [facility]- rad: here- lab: here -- pt has routine labs ordered for October 2024 - scheduled for a peripheral nerve evaluation with Dr. Adam Cat on 09 Sep 2024 (tomorrow)- pt reports that she is going to be getting a stimulator to help the sacral nerves that help control her bladder and/or bowel- to be done at [facility]- Local anesthesia only- tomorrow is the placement of 2 temporary leads and then has f/u in 7 days; leads removed. if reaches 50% improvement or greater she will be eligible for permanent stimulator. 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
--- OUTSIDE RECORDS SUMMARY | 2024-09-24 06:30 | XMS_ITS ---
Author Organization Unknown Address [address] [place] [address] [phone] Phone Care Team Providers Care Tester Equipment Name Role Phone MERCY Salgado Attending Unavailable BHAKTI BALLARD Primary Unavailable Immunization Immunization Date Status Additional [...] 300 CVX Pneumococcal conjugate PCV20 , polysaccharide APK060 conjugate, adjuvant, PF 05/09/2022 Completed 216 CVX [...] em Smoking History Never smoker (Never Smoked) [id number] SNOMED CT Smoking History Former smoker 12/06/19709128 3847[address] Sex Female Sexual Orientation Straight or Heterosexual 04533905 SNOMED CT Vital Signs Vital Sign Value Unit Vigo Value Vigo Unit Date/Time Recent/Initial? Code Code System Body Mass Index 41.95 kg/m2 02/18/2024 13:32 Initial 18531 -5 LOINC Systolic Blood Pressure 138 mm[Hg] 02/18/2024 13:32 Initial 8480- 6 LOINC Diastolic Blood Pressure 78 mm[Hg] 02/18/2024 13:32 Initial 8462- 4 LOINC Body Surface Area 2.13 m2 02/18/2024 13:32 Initial 3140- 1 LOINC Height 157.480 0 cm 62.00 in 02/18/2024 13:32 Initial 8302- 2 LOINC O2 Saturation 96 % 2023 13:32 Initial 07891 -5 LOINC Pulse 67.0 /min 02/18/2024 13:32 Initial 8867- 4 LOINC Respiration 20 /min 02/18/20 13:32 Initial 9279- 1 LOINC Temperature 36.9 [place] 98.4 F 02/18/20 13:32 Initial 8310- 5 [facility] Weight 104.04 kg 229.37 lbs 02/18/2024 13:32 Initial 85515 -7 [facility] Medications Medication Start Date End Date Route Frequency Dose Code Code System Medication Instructions Home Meds traZODone hydrochloride 50MG Oral Tablet 08/07/2018 Unknown Daily 1 TABLET 462528 RxNorm 1 TABLET Daily Oxybutynin 5MG Oral Tablet 05/22/2020 Unknown ORAL Daily 1 TABLET 060427 RxNorm 1 TABLET ORAL Daily Nabumetone 750MG Oral Tablet 10/23/2020 Unknown By Mouth Twice a day 1 TABLET 780038 RxNorm 1 TABLET By Mouth Twice a day Atorvastatin Calcium 40MG Oral Tablet 02/05/2021 Unknown By Mouth Daily 1 TABLET 675727 RxNorm 1 TABLET By Mouth Daily amLODIPine Besylate 5MG Oral Tablet 02/05/2021 Unknown By Mouth Daily 1 TABLET 692081 RxNorm 1 TABLET By Mouth Daily Alendronate Sodium 70MG Oral Tablet 02/05/2021 Unknown Daily 1 TABLET 928960 RxNorm 1 TABLET Daily Sertraline HCl 100MG Oral Tablet 02/05/2021 Unknown Daily 1 TABLET 267723 RxNorm 1 TABLET Daily Losartan Potassium 50MG Oral Tablet 12/01/2023 Unknown By Mouth As Directed 1 TABLET 546005 RxNorm 1 TABLET By Mouth As Directed Cetirizine 10MG Oral Tablet 12/01/2023 Unknown By Mouth As Directed 1 TABLET 5468723 RxNorm 1 TABLET By Mouth As Directed Vitamin D3 250 MCG Oral Tablet 12/01/2023 Unknown By Mouth As Directed 1 TABLET RxNorm 1 TABLET By Mouth As Directed Fish Oil 1200 MG Oral Capsule, Liquid Filled 12/01/2023 Unknown By Mouth As Directed 1 CAPSULE 551681 RxNorm 1 CAPSULE By Mouth As Directed Leflunomide 10MG Oral Tablet 12/01/2023 Unknown By Mouth Daily 1 TABLET 787025 RxNorm 1 TABLET By Mouth Daily Methotrexate Sodium 2.5MG Oral Tablet 12/01/2023 4 By mouth Once a week 8 TABLET 573467 RxNorm TAKE 8 TABLETS ONCE A WEEK Folic Acid 1MG Oral Tablet 12/16/2023 4 By mouth Daily 1 TABLET 421613 RxNorm TAKE 1 TABLET DAILY Methotrexate Sodium 2.5MG Oral Tablet 06/21/2024 Unknown By mouth Once a week 8 TABLET 554465 RxNorm TAKE 8 TABLETS ONCE A WEEK Folic Acid 1MG Oral Tablet 08/30/2024 Unknown By mouth Daily 1 TABLET 688951 RxNorm TAKE 1 TABLET DAILY Assessment You had the following problems: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 Under sterile technique and standard protocol injected 1 cc of 1% lidocaine and 1 cc or 40 mg of Kenalog into the tendon sheath of both ring fingers. 60% chance of improvement. If no improvement will see her back in a few months to discuss trigger finger release Hospital Discharge Instructions Should you have any questions prior to discharge, please contact a member of your healthcare team. If you have left the hospital and have any questions, please contact your primary care physician. Reason For Referral No Data Found Problems Problem Start Date Resolved Date Status Code Code System RHEUMATOID ARTHRITIS active 83406852 SNOMED-CT OA active 667907661 SNOMED-CT RHEUMATOID ARTHRITIS WITH RHEUMATOID FACTOR, UNSPECIFIED active 791972724 SNOMED-CT CANCER OF THE BREAST 12/06/2016 resolved 64039092 9 SNOMED-CT PEPTIC ULCERS 12/06/2016 resolved 78717876 SNOME D-CT HYPERLIPIDEMIA 12/06/2016 resolved 01802945 SNOM ED-CT Allergies and Adverse Reactions Allergy Substance Reaction Severity Start Date Concern Status Co de Code System No Known Drug Allergies Active 776826649 SNOMED-CT Plan of Treatment Established Patient 15 10/11/2024 Encounters Encounter Diagnosis Start Date Code Code Sys tem 02/18/2024 [id number] SNOMED-CT Personal Care Team Section Performer Name Performer Role Active Date Inactive Da te Consultation Notes [facility] 02/18/2024 16:48 Orthopedic Clinic Visit Note CHIEF COMPLAINT: CONSULT: LEFT HAND TRIGGER FINGER HISTORY OF PRESENT ILLNESS: patient is referred today for evaluation of left and right ring trigger fingers. She is on a biologic for inflammatory arthritis. Had the locking catching of the finger now for the last few weeks. Pain 7/10 when the finger gets locked PAST MEDICAL HISTORY: Problem List Rheumatoid arthritis OA Rheumatoid arthritis with rheumatoid factor, unspecified PAST SURGICAL HISTORY: Surgery List Mastectomy, 03/01/2005 Hernia repair, 06/19/2017 Cardiac loop recorder insertion, Hysterectomy, 12/07/1979 Cholecystectomy, 03/10/2017 FAMILY HISTORY: Family History List FH of breast cancer, MATERNAL GRANDMOTHER SOCIAL HISTORY: noncontributory Smoking Status Years Use Start Year End Year Cessation Education Never chewed tobacco Never smoker HABITS Does Not Current Use History of Quantity Duration Marijuana x Alcohol x Narcotics x Illicit Drugs x HOME MEDICATIONS: Current Home Meds: No Home Medications Available ALLERGIES: Allergy List No Known Food Allergies, Food No Known Environmental Allergies, Environment No Known Drug Allergies, Medication REVIEW OF SYSTEMS: System X = system reviewed, Negative unless docu as Positive: Positive for: Constitutional negative fever, chills, loss of appetite, snoring HEENT sore throat, blurred or double vision, ear pain Respiratory cough, sputum, shortness of breath, wheezing Cardiovascular chest pain, palpitations,edema Gastrointestinal nausea, vomiting, constipation, diarrhea, abdominal pain Genitourinary burning, blood, frequency Hematopoetic easy bruising, bleeding Skin rashes, hives Musculoskeletal significant joint pain, swelling L trigger finger Neurologic weakness, numbness, fainting, seizures, headaches Psychiatric anxiety, depression, problems sleeping Endocrine polydipsia, polyuria, heat or cold intolerance PHYSICAL EXAM: VS Basic inc Ht Wt Date/Time BP (mm/Hg) BP Position/Site MAP (mm/Hg) Heart Rate Resp Temp (F) SPO2% Pain Score Height (in) Weight (lbs/ozs) BMI Head Cir (cm) Systolic Diastolic 02/18/2024 13:32 138/78 Sitting/Left Arm 98 67 20 98.4 Tympanic 96 % 62 in 229.6 41.95 138 78 GENERAL: Well appearing in no acute distress HEENT: Normocephalic without trauma. Eyes - pupils round, reactive to light, and accommodation. Sclera clear. Extraocular motions intact. Mucosal membranes are dry. NECK: Supple with no lymphadenopathy or thyromegaly. RESPIRATORY: Lungs clear to auscultation and percussion. Normal respiratory effort. Chest wall normal CARDIOVASCULAR: Heart regular rhythm without murmur or gallops. Precordium was quiet. ABDOMEN: Soft, nontender. Bowel sounds were normal. No splenomegaly. No rebound or guarding. GENITOURINARY: No CVA or suprapubic tenderness. NEUROLOGICAL: Normal motor strength throughout. SKIN: Warm, dry and without rash. PSYCHIATRIC: Alert, oriented and cooperative. Normal memory, conversant with normal affect. EXTREMITIES/MUSCULOSKELETAL: triggering with locking of the left and the right ring finger pain over the A1 [place] light touch intact to the fingers DIAGNOSTIC IMAGING: no significant arthritis in either hand on x-rays from a few months ago Assessment: left and right ring trigger fingers Plan: discussed treatment options. Under sterile technique and standard protocol injected 1 cc of 1% lidocaine and 1 cc or 40 mg of Kenalog into the tendon sheath of both ring fingers. 60% chance of improvement. If no improvement will see her back in a few months to discuss trigger finger release
--- OUTSIDE RECORDS SUMMARY | 2024-09-24 06:30 | XMS_ITS | Continuity of Care Document ---
Author Name [facility] Organization [facility] Care Team Providers Care Resource Management Specialist Name Role Phone [facility] Unavailable Unavailable Medications Combined list of outpatient medications from Department of Defense and Veterans Affairs facilities.Medications provided include 1) outpatient medications from the last 15 months, and 2) patient-reported medications. Medication Details Route Status Patient Instructions Prescription Expires Prescription Number Last Dispense Date Ordering Provider Order Date Order Qty Source ALENDRONATE SODIUM (alendronat e sodium), 70 MG, TABLET, ORAL, [facility] 4 ea. BLIST PACK Active [id number] 4 2023 12 Pharmac y Data Transac tion Service Facilit y AMLODIPINE BESYLATE (AMLODIPINE BESYLATE), 10 MG, TABLET, ORAL, [employer], 1000 ea. BOTTLE Active [id number] 4 2023 90 Pharmac y Data Transac tion Service Facilit y AMLODIPINE BESYLATE (AMLODIPINE BESYLATE), 10 MG, TABLET, ORAL, [employer], 1000 ea. BOTTLE Cancele d [id number] : 2023 0 Pharmac y Data Transac tion Service Facilit y AMLODIPINE BESYLATE (AMLODIPINE BESYLATE), 10 MG, TABLET, ORAL, [employer], 1000 ea. BOTTLE Active [id number] 4 2023 90 Pharmac y Data Transac tion Service Facilit y ATORVASTATI N CALCIUM (atorvastat in calcium), 40 MG, TABLET, ORAL, [employer], 1000 ea. BOTTLE Active [id number] 4 2023 90 Pharmac y Data Transac tion Service Facilit y CETIRIZINE HCL (cetirizine HCl), 10 MG, TABLET, ORAL, [employer], 90 ea. BOTTLE Active [id number] 4 2023 90 Pharmac y Data Transac tion Service Facilit y FLUTICASONE PROPIONATE (FLUTICASON E PROPIONATE) , 50 MCG, SPRAY SUSP, NASAL, [employer] 16 g AER W/ADAP Active [id number] 4 2023 16 Pharmac y Data Transac tion Service Facilit y FLUTICASONE PROPIONATE (FLUTICASON E PROPIONATE) , 50 MCG, SPRAY SUSP, NASAL, [employer] 16 g AER W/ADAP Active [id number] 4 2023 16 Pharmac y Data Transac tion Service Facilit y FLUTICASONE PROPIONATE (FLUTICASON E PROPIONATE) , 50 MCG, SPRAY SUSP, NASAL, [employer] 16 g AER W/ADAP Active [id number] 4 2023 16 Pharmac y Data Transac tion Service Facilit y FOLIC ACID (folic acid), 1 MG, TABLET, ORAL, [employer], 1800 ea. BOTTLE Active [id number] 4 2023 90 Pharmac y Data Transac tion Service Facilit y LEFLUNOMIDE (leflunomid e), 10 MG, TABLET, ORAL, [employer], 30 ea. BOTTLE Active [id number] 4 2023 90 Pharmac y Data Transac tion Service Facilit y LEFLUNOMIDE (leflunomid e), 10 MG, TABLET, ORAL, [employer], 30 ea. BOTTLE Active [id number] 4 2023 180 Pharmac y Data Transac tion Service Facilit y LOSARTAN POTASSIUM (LOSARTAN POTASSIUM), 50 MG, TABLET, ORAL, [employer], 1000 ea. BOTTLE Cancele d [id number] : 2023 0 Pharmac y Data Transac tion Service Facilit y LOSARTAN POTASSIUM (LOSARTAN POTASSIUM), 50 MG, TABLET, ORAL, [employer], 1000 ea. BOTTLE Active [id number] 4 2023 180 Pharmac y Data Transac tion Service Facilit y METHOTREXAT E (methotrexa te sodium), 2.5 MG, TABLET, ORAL, [employer] 100 ea. BOTTLE Active [id number] 4 2023 96 Pharmac y Data Transac tion Service Facilit y METOPROLOL TARTRATE (metoprolol tartrate), 25 MG, TABLET, ORAL, [employer] 1000 ea. BOTTLE Active [id number] 4 2023 180 Pharmac y Data Transac tion Service Facilit y Sertraline Hydrochlori de (Abhijit Evans Prepack) 90 TABLET, FILM COATED in 1 BOTTLE Active [id number] 01/27/20 2 4 2023 180 Pharmac y Data Transac tion Service Facilit y TRAZODONE HCL (trazodone HCl), 50 MG, TABLET, ORAL, [employer], 1000 ea. BOTTLE Active [id number] 4 2023 90 Pharmac y Data Transac tion Service Facilit y TRAZODONE HCL (trazodone HCl), 50 MG, TABLET, ORAL, [employer], 1000 ea. BOTTLE Active [id number] 4 2023 90 Pharmac y Data Transac tion Service Facilit y Allergies, Adverse Reactions, Alerts Combined list of allergies from Department of Defense and Veterans Affairs facilities. It does not include entries that were removed or entered in error. Substance Category Reaction Severity Reaction type Status Date Reported Comments Source No Known Allergies Drug allergy (disorder) active 01/04/2011 [facility] Vlad [facility]IPLE[facility] ([facility]) Immunizations Combined list of available immunizations from the Department of Defense and Veterans Affairs facilities. 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 Social History Type Response Date Comment Sour e This section is an empty social history section. [facility]
--- OUTSIDE RECORDS SUMMARY | 2024-09-24 06:31 | XMS_ITS ---
Author Organization Unknown Address [address] [place] [address] [phone] Phone Care Team Providers Care Rhinestone Setter Name Role Phone EUSEBIA MCGINNIS Attending Unavailable [...] 300 CVX Pneumococcal conjugate PCV20 , polysaccharide NOS380 conjugate, adjuvant, PF 05/09/2022 Completed 216 CVX [...] em Smoking History Never smoker (Never Smoked) [id number] SNOMED CT Smoking History Former smoker 12/06/19707406 9479690 SN[address] Sex Female Sexual Orientation Straight or Heterosexual 98884966 SNOMED CT Vital Signs Vital Sign Value Unit [facility] Value [facility] Unit Date/Time Recent/Initial? Code Code System Body Mass Index 40.24 kg/m2 05/13/2022 10:53 Initial 06003 -5 LOINC Systolic Blood Pressure 130 mm[Hg] 05/13/2022 10:53 Initial 8480- 6 LOINC Diastolic Blood Pressure 70 mm[Hg] 05/13/2022 10:53 Initial 8462- 4 LOINC Body Surface Area 2.09 m2 05/13/2022 10:53 Initial 3140- 1 LOINC Height 157.480 0 cm 62.00 in 05/13/2022 10:53 Initial 8302- 2 LOINC O2 Saturation 96 % 2021 10:53 Initial 72780 -5 LOINC Pulse 86.0 /min 05/13/2022 10:53 Initial 8867- 4 LOINC Temperature 37.4 Catarina 99.3 F 05/13/20 10:53 Initial 8310- 5 LOINC Weight 99.79 kg 220.00 lbs 05/13/2022 10:53 Initial 67512 -7 [facility] Medications Medication Start Date End Date Route Frequency Dose Code Code System Medication Instructions Home Meds traZODone hydrochloride 50MG Oral Tablet 08/07/2018 Unknown Daily 1 TABLET 025077 RxNorm 1 TABLET Daily Oxybutynin 5MG Oral Tablet 05/22/2020 Unknown ORAL Daily 1 TABLET 330487 RxNorm 1 TABLET ORAL Daily Nabumetone 750MG Oral Tablet 10/23/2020 Unknown By Mouth Twice a day 1 TABLET 598856 RxNorm 1 TABLET By Mouth Twice a day Atorvastatin Calcium 40MG Oral Tablet 02/05/2021 Unknown By Mouth Daily 1 TABLET 642954 RxNorm 1 TABLET By Mouth Daily amLODIPine Besylate 5MG Oral Tablet 02/05/2021 Unknown By Mouth Daily 1 TABLET 107040 RxNorm 1 TABLET By Mouth Daily Alendronate Sodium 70MG Oral Tablet 02/05/2021 Unknown Daily 1 TABLET 303361 RxNorm 1 TABLET Daily Sertraline HCl 100MG Oral Tablet 02/05/2021 Unknown Daily 1 TABLET 714764 RxNorm 1 TABLET Daily Folic Acid 1MG Oral Tablet 02/15/2022 3 By mouth Daily 1 TABLET 901238 RxNorm TAKE 1 TABLET DAILY Leflunomide 20MG Oral Tablet 02/15/2022 2 By mouth Daily 1 TABLET 268167 RxNorm TAKE 1 TABLET DAILY Methotrexate Sodium 2.5MG Oral Tablet 02/15/2022 3 By mouth Once a week 8 TABLET 554830 RxNorm TAKE 8 TABLETS ONCE A WEEK Leflunomide 10MG Oral Tablet 05/13/2022 3 By Mouth Daily 1 TABLET 407978 RxNorm 1 TABLET By Mouth Daily Leflunomide 10MG Oral Tablet 09/09/2022 3 By Mouth Daily 2 TABLET 738591 RxNorm 2 TABLET By Mouth Daily Methotrexate Sodium 2.5MG Oral Tablet 09/09/2022 4 By mouth Once a week 8 TABLET 247470 RxNorm TAKE 8 TABLETS ONCE A WEEK Folic Acid 1MG Oral Tablet 09/09/2022 4 By mouth Daily 1 TABLET 668141 RxNorm TAKE 1 TABLET DAILY predniSONE 5MG Oral Tablet 09/09/2022 4 By Mouth 350180 RxNorm 4 TABLET By Mouth for 3 days3 TABLET By Mouth for 3 days2 TABLET By Mouth for 3 days1 TABLET By Mouth for 3 days Leflunomide 10MG Oral Tablet 02/14/2023 4 By Mouth Daily 2 TABLET 20520404 RxNorm TAKE 2 TABLETS DAILY ( DOSAGE CHANGE ) Leflunomide 10MG Oral Tablet 02/14/2023 3 By Mouth Daily 2 TABLET 20520404 RxNorm TAKE 2 TABLETS DAILY ( DOSAGE CHANGE ) Leflunomide 10MG Oral Tablet 09/29/2023 4 By Mouth Daily 2 TABLET 20520404 RxNorm TAKE 2 TABLETS DAILY Losartan Potassium 50MG Oral Tablet 12/01/2023 Unknown By Mouth As Directed 1 TABLET 078360 RxNorm 1 TABLET By Mouth As Directed Cetirizine 10MG Oral Tablet 12/01/2023 Unknown By Mouth As Directed 1 TABLET 6602710 RxNorm 1 TABLET By Mouth As Directed Vitamin D3 250 MCG Oral Tablet 12/01/2023 Unknown By Mouth As Directed 1 TABLET RxNorm 1 TABLET By Mouth As Directed Fish Oil 1200 MG Oral Capsule, Liquid Filled 12/01/2023 Unknown By Mouth As Directed 1 CAPSULE 755073 RxNorm 1 CAPSULE By Mouth As Directed Leflunomide 10MG Oral Tablet 12/01/2023 Unknown By Mouth Daily 1 TABLET 210048 RxNorm 1 TABLET By Mouth Daily Methotrexate Sodium 2.5MG Oral Tablet 12/01/2023 4 By mouth Once a week 8 TABLET 355422 RxNorm TAKE 8 TABLETS ONCE A WEEK Folic Acid 1MG Oral Tablet 12/16/2023 4 By mouth Daily 1 TABLET 143706 RxNorm TAKE 1 TABLET DAILY Methotrexate Sodium 2.5MG Oral Tablet 06/21/2024 Unknown By mouth Once a week 8 TABLET 353887 RxNorm TAKE 8 TABLETS ONCE A WEEK Folic Acid 1MG Oral Tablet 08/30/2024 Unknown By mouth Daily 1 TABLET 728228 RxNorm TAKE 1 TABLET DAILY Assessment You had the following problems: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 Rheumatoid Arthritis - Stable off Orencia (stopped due to recurrent skin cancers) - on MTX 20mg per week + Arava 20mg per day - labs required q3m, no toxicity seen - seeing heme for elevated wbc - consider weaning DMARDs if stays stable off Orencia (both mtx and arava are hepatotoxic) - since pt is doing well we will decrease Arava to 10mg/d, cont mtx 20mg per week, folate daily, PRN Nabumetone - labs q3m - call if flares RTC 3 mos. All of the patient's questions and concerns were addressed. Hospital Discharge Instructions Should you have any questions prior to discharge, please contact a member of your healthcare team. If you have left the hospital and have any questions, please contact your primary care physician. Reason For Referral No Data Found Problems Problem Start Date Resolved Date Status Code Code System RHEUMATOID ARTHRITIS active 11022426 SNOMED-CT OA active 262192433 SNOMED-CT RHEUMATOID ARTHRITIS WITH RHEUMATOID FACTOR, UNSPECIFIED active 488509826 SNOMED-CT CANCER OF THE BREAST 12/06/2016 resolved 28849451 9 SNOMED-CT PEPTIC ULCERS 12/06/2016 resolved 83430153 SNOME D-CT HYPERLIPIDEMIA 12/06/2016 resolved 49417331 SNOM ED-CT Allergies and Adverse Reactions Allergy Substance Reaction Severity Start Date Concern Status Co de Code System No Known Drug Allergies Active 640165604 SNOMED-CT Plan of Treatment Established Patient 15 10/11/2024 Encounters Encounter Diagnosis Start Date Code Code Sys tem Rheumatoid arthritis 05/13/2022 71093394 SNOMED- CT Personal Care Team Section Performer Name Performer Role Active Date Inactive Da jennifer
--- OUTSIDE RECORDS SUMMARY | 2024-09-24 06:31 | XMS_ITS ---
Author Organization Unknown Address [address] [place] [address] [phone] Phone Care Team Providers Care Corporate Officer Name Role Phone EUSEBIA MCGINNIS Attending Unavailable BALAJI ALMAZAN Primary Unavailable Immunization Immunization Date Status Additional [...] 300 CVX Pneumococcal conjugate PCV20 , polysaccharide [id number] conjugate, adjuvant, PF 05/09/2022 Completed 216 CVX [...] em Smoking History Never smoker (Never Smoked) 752282017 SNOMED CT Smoking History Former smoker 12/06/197027[address] Sex Female Sexual Orientation Straight or Heterosexual 07178941 SNOMED CT Vital Signs Vital Sign Value Unit [place] Value [place] [facility] Date/Time Recent/Initial? Code Code System Body Mass Index 39.32 kg/m2 12/30/2022 10:34 Initial 00873 -5 LOINC Systolic Blood Pressure 138 mm[Hg] 12/30/2022 10:34 Initial 8480- 6 LOINC Diastolic Blood Pressure 76 mm[Hg] 12/30/2022 10:34 Initial 8462- 4 LOINC Body Surface Area 2.07 m2 12/30/2022 10:34 Initial 3140- 1 LOINC Height 157.480 0 cm 62.00 in 12/30/2022 10:34 Initial 8302- 2 LOINC O2 Saturation 95 % 2022 10:34 Initial 61977 -5 LOINC Pulse 95.0 /min 12/30/2022 10:34 Initial 8867- 4 LOINC Respiration 20 /min 12/31/19 10:34 Initial 9279- 1 LOINC Temperature 36.5 Catarina 97.7 F 12/31/19 10:34 Initial 8310- 5 [facility] Weight 97.52 kg 215.00 lbs 12/30/2022 10:34 Initial 73768 -7 [facility] Medications Medication Start Date End Date Route Frequency Dose Code Code System Medication Instructions Home Meds traZODone hydrochloride 50MG Oral Tablet 08/07/2018 Unknown Daily 1 TABLET 811467 RxNorm 1 TABLET Daily Oxybutynin 5MG Oral Tablet 05/22/2020 Unknown ORAL Daily 1 TABLET 611664 RxNorm 1 TABLET ORAL Daily Nabumetone 750MG Oral Tablet 10/23/2020 Unknown By Mouth Twice a day 1 TABLET 076804 RxNorm 1 TABLET By Mouth Twice a day Atorvastatin Calcium 40MG Oral Tablet 02/05/2021 Unknown By Mouth Daily 1 TABLET 081372 RxNorm 1 TABLET By Mouth Daily amLODIPine Besylate 5MG Oral Tablet 02/05/2021 Unknown By Mouth Daily 1 TABLET 180035 RxNorm 1 TABLET By Mouth Daily Alendronate Sodium 70MG Oral Tablet 02/05/2021 Unknown Daily 1 TABLET 576586 RxNorm 1 TABLET Daily Sertraline HCl 100MG Oral Tablet 02/05/2021 Unknown Daily 1 TABLET 205664 RxNorm 1 TABLET Daily Leflunomide 10MG Oral Tablet 09/09/2022 3 By Mouth Daily 2 TABLET 835178 RxNorm 2 TABLET By Mouth Daily Methotrexate Sodium 2.5MG Oral Tablet 09/09/2022 4 By mouth Once a week 8 TABLET 866696 RxNorm TAKE 8 TABLETS ONCE A WEEK Folic Acid 1MG Oral Tablet 09/09/2022 4 By mouth Daily 1 TABLET 727917 RxNorm TAKE 1 TABLET DAILY predniSONE 5MG Oral Tablet 09/09/2022 4 By Mouth 109218 RxNorm 4 TABLET By Mouth for 3 days3 TABLET By Mouth for 3 days2 TABLET By Mouth for 3 days1 TABLET By Mouth for 3 days Leflunomide 10MG Oral Tablet 02/14/2023 4 By Mouth Daily 2 TABLET 653229 RxNorm TAKE 2 TABLETS DAILY ( DOSAGE CHANGE ) Leflunomide 10MG Oral Tablet 02/14/2023 3 By Mouth Daily 2 TABLET 20520404 RxNorm TAKE 2 TABLETS DAILY ( DOSAGE CHANGE ) Leflunomide 10MG Oral Tablet 09/29/2023 4 By Mouth Daily 2 TABLET 20520404 RxNorm TAKE 2 TABLETS DAILY Losartan Potassium 50MG Oral Tablet 12/01/2023 Unknown By Mouth As Directed 1 TABLET 422857 RxNorm 1 TABLET By Mouth As Directed Cetirizine 10MG Oral Tablet 12/01/2023 Unknown By Mouth As Directed 1 TABLET 0518312 RxNorm 1 TABLET By Mouth As Directed Vitamin D3 250 MCG Oral Tablet 12/01/2023 Unknown By Mouth As Directed 1 TABLET RxNorm 1 TABLET By Mouth As Directed Fish Oil 1200 MG Oral Capsule, Liquid Filled 12/01/2023 Unknown By Mouth As Directed 1 CAPSULE 911597 RxNorm 1 CAPSULE By Mouth As Directed Leflunomide 10MG Oral Tablet 12/01/2023 Unknown By Mouth Daily 1 TABLET 760984 RxNorm 1 TABLET By Mouth Daily Methotrexate Sodium 2.5MG Oral Tablet 12/01/2023 4 By mouth Once a week 8 TABLET 259339 RxNorm TAKE 8 TABLETS ONCE A WEEK Folic Acid 1MG Oral Tablet 12/16/2023 4 By mouth Daily 1 TABLET 860945 RxNorm TAKE 1 TABLET DAILY Methotrexate Sodium 2.5MG Oral Tablet 06/21/2024 Unknown By mouth Once a week 8 TABLET 192795 RxNorm TAKE 8 TABLETS ONCE A WEEK Folic Acid 1MG Oral Tablet 08/30/2024 Unknown By mouth Daily 1 TABLET 385767 RxNorm TAKE 1 TABLET DAILY Assessment You had the following problems: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 Rheumatoid Arthritis - mod to severe - still not controlled, but had to stop Orencia d/t recurrent skin cancers. - on MTX 20mg per week + Arava 20mg per day (increase arava back to 20mg per day since doesn't seem to be tolerating decrease to 10mg/d) - labs required q3m, no toxicity seen - seeing heme for elevated wbc - inflammation remains elevated but not a candidate for biologics d/t skin CA 2. Knee DJD - planning for L TKR in January RUST 3 -4 mos. Labs q3m. All of [...] Status Code Code System RHEUMATOID ARTHRITIS active 75196909 SNOMED-CT OA active 148303643 SNOMED-CT RHEUMATOID ARTHRITIS WITH RHEUMATOID FACTOR, UNSPECIFIED active 887155023 SNOMED-CT CANCER OF THE BREAST 12/06/2016 resolved 81897556 9 SNOMED-CT PEPTIC ULCERS 12/06/2016 resolved 22570758 SNOME D-CT HYPERLIPIDEMIA 12/06/2016 resolved 91710873 SNOM ED-CT Allergies and Adverse Reactions Allergy Substance Reaction Severity Start Date Concern Status Co de Code System No Known Drug Allergies Active 088518690 SNOMED-CT Plan of Treatment Established Patient 15 10/11/2024 Encounters Encounter Diagnosis Start Date Code Code Sys tem Rheumatoid arthritis 12/30/2022 32574511 SNOMED- CT Personal Care Team Section Performer Name Performer Role Active Date Inactive Yaakov rodriguez
--- OUTSIDE RECORDS SUMMARY | 2024-09-24 06:31 | XMS_ITS ---
Author Organization Unknown Address [address] [place] [address] [phone] Phone Care Team Providers Care Head Of Integrated Media Name Role Phone EUSEBIA MCGINNIS Attending Unavailable [...] 300 CVX Pneumococcal conjugate PCV20 , polysaccharide [id number] conjugate, adjuvant, PF 05/09/2022 Completed 216 CVX [...] em Smoking History Never smoker (Never Smoked) 842391237 SNOMED CT Smoking History Former smoker 12/06/19704109 2697392 SNOMED CT Sex Female Sexual Orientation Straight or Heterosexual 14624559 SNOMED CT Vital Signs Vital Sign Value Unit [place] Value [place] [facility] Date/Time Recent/Initial? Code Code System Body Mass Index 41.15 kg/m2 01/19/2022 09:55 Initial 03498 -5 LOINC Systolic Blood Pressure 140 mm[Hg] 01/19/2022 09:55 Initial 8480- 6 LOINC Diastolic Blood Pressure 88 mm[Hg] 01/19/2022 09:55 Initial 8462- 4 LOINC Body Surface Area 2.11 m2 01/19/2022 09:55 Initial 3140- 1 LOINC Height 157.480 0 cm 62.00 in 01/19/2022 09:55 Initial 8302- 2 LOINC O2 Saturation 96 % 2021 09:55 Initial 27726 -5 LOINC Pulse 51.0 /min 01/19/2022 09:55 Initial 8867- 4 LOINC Temperature 36.3 Catarina 97.3 F 01/20/20 09:55 Initial 8310- 5 LOINC Weight 102.06 kg 225.00 lbs 01/19/2022 09:55 Initial 56215 -7 [facility] Medications Medication Start Date End Date Route Frequency Dose Code Code System Medication Instructions Home Meds traZODone hydrochloride 50MG Oral Tablet 08/07/2018 Unknown Daily 1 TABLET 400292 RxNorm 1 TABLET Daily Oxybutynin 5MG Oral Tablet 05/22/2020 Unknown ORAL Daily 1 TABLET 000307 RxNorm 1 TABLET ORAL Daily Nabumetone 750MG Oral Tablet 10/23/2020 Unknown By Mouth Twice a day 1 TABLET 775740 RxNorm 1 TABLET By Mouth Twice a day Atorvastatin Calcium 40MG Oral Tablet 02/05/2021 Unknown By Mouth Daily 1 TABLET 614277 RxNorm 1 TABLET By Mouth Daily amLODIPine Besylate 5MG Oral Tablet 02/05/2021 Unknown By Mouth Daily 1 TABLET 596953 RxNorm 1 TABLET By Mouth Daily Alendronate Sodium 70MG Oral Tablet 02/05/2021 Unknown Daily 1 TABLET 236933 RxNorm 1 TABLET Daily Sertraline HCl 100MG Oral Tablet 02/05/2021 Unknown Daily 1 TABLET 230178 RxNorm 1 TABLET Daily Folic Acid 1MG Oral Tablet 02/13/2021 02/16/20 22 By mouth Daily 1 TABLET 236423 RxNorm TAKE 1 TABLET DAILY Orencia Pre-Filled Syringe 125MG/1ML Subcutaneous Solution 05/15/2021 01/20/20 22 SUBCUT ANEOUS ONCE WEEKLY 125 MILLIGRAMS 0043378 RxNorm INJECT 125 MILLIGRAMS SUBCUTANEOU S ONCE WEEKLY Methotrexate Sodium 2.5MG Oral Tablet 08/06/2021 02/16/20 22 By mouth Once a week 8 TABLET 494233 RxNorm TAKE 8 TABLETS ONCE A WEEK Leflunomide 20MG Oral Tablet 08/06/2021 02/16/20 22 By mouth Daily 1 TABLET 349302 RxNorm TAKE 1 TABLET DAILY Folic Acid 1MG Oral Tablet 02/15/2022 09/09/19 23 By mouth Daily 1 TABLET 907289 RxNorm TAKE 1 TABLET DAILY Leflunomide 20MG Oral Tablet 02/15/2022 05/13/20 22 By mouth Daily 1 TABLET 696674 RxNorm TAKE 1 TABLET DAILY Methotrexate Sodium 2.5MG Oral Tablet 02/15/2022 09/09/19 23 By mouth Once a week 8 TABLET 585465 RxNorm TAKE 8 TABLETS ONCE A WEEK Leflunomide 10MG Oral Tablet 05/13/2022 09/09/19 23 By Mouth Daily 1 TABLET 261707 RxNorm 1 TABLET By Mouth Daily Leflunomide 10MG Oral Tablet 09/09/2022 02/15/20 23 By Mouth Daily 2 TABLET 911782 RxNorm 2 TABLET By Mouth Daily Methotrexate Sodium 2.5MG Oral Tablet 09/09/2022 12/01/19 24 By mouth Once a week 8 TABLET 065848 RxNorm TAKE 8 TABLETS ONCE A WEEK Folic Acid 1MG Oral Tablet 09/09/2022 12/16/19 24 By mouth Daily 1 TABLET 993192 RxNorm TAKE 1 TABLET DAILY predniSONE 5MG Oral Tablet 09/09/2022 12/01/19 24 By Mouth 162608 RxNorm 4 TABLET By Mouth for 3 days3 TABLET By Mouth for 3 days2 TABLET By Mouth for 3 days1 TABLET By Mouth for 3 days Leflunomide 10MG Oral Tablet 02/14/2023 09/29/19 24 By Mouth Daily 2 TABLET 041496 RxNorm TAKE 2 TABLETS DAILY ( DOSAGE CHANGE ) Leflunomide 10MG Oral Tablet 02/14/2023 08/02/20 23 By Mouth Daily 2 TABLET 985861 RxNorm TAKE 2 TABLETS DAILY ( DOSAGE CHANGE ) Leflunomide 10MG Oral Tablet 09/29/2023 12/01/19 24 By Mouth Daily 2 TABLET 999230 RxNorm TAKE 2 TABLETS DAILY Losartan Potassium 50MG Oral Tablet 12/01/2023 Unknown By Mouth As Directed 1 TABLET 733967 RxNorm 1 TABLET By Mouth As Directed Cetirizine 10MG Oral Tablet 12/01/2023 Unknown By Mouth As Directed 1 TABLET 2188525 RxNorm 1 TABLET By Mouth As Directed Vitamin D3 250 MCG Oral Tablet 12/01/2023 Unknown By Mouth As Directed 1 TABLET RxNorm 1 TABLET By Mouth As Directed Fish Oil 1200 MG Oral Capsule, Liquid Filled 12/01/2023 Unknown By Mouth As Directed 1 CAPSULE 421264 RxNorm 1 CAPSULE By Mouth As Directed Leflunomide 10MG Oral Tablet 12/01/2023 Unknown By Mouth Daily 1 TABLET 704208 RxNorm 1 TABLET By Mouth Daily Methotrexate Sodium 2.5MG Oral Tablet 12/01/2023 06/21/20 24 By mouth Once a week 8 TABLET 392485 RxNorm TAKE 8 TABLETS ONCE A WEEK Folic Acid 1MG Oral Tablet 12/16/2023 08/30/20 24 By mouth Daily 1 TABLET 317083 RxNorm TAKE 1 TABLET DAILY Methotrexate Sodium 2.5MG Oral Tablet 06/21/2024 Unknown By mouth Once a week 8 TABLET 231682 RxNorm TAKE 8 TABLETS ONCE A WEEK Folic Acid 1MG Oral Tablet 08/30/2024 Unknown By mouth Daily 1 TABLET 788884 RxNorm TAKE 1 TABLET DAILY Assessment You had the following problems: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 Rheumatoid Arthritis - Stable off Orencia (stopped due to recurrent skin cancers) - cont MTX 20mg per week + Arava 20mg per day - labs required q3m, no toxicity seen - seeing heme for elevated wbc - consider weaning DMARDs if stays stable off Orencia (both mtx and arava are hepatotoxic) - will continue MTX, Arava as is for now. Will defer resuming biologics for now d/t risks of recurrent skin cancers, pt agreeable. Hopefully will improve over the warmer months. RTC 3 mos. All of the patient's questions and concerns were addressed. Hospital Discharge Instructions Should you have any questions prior to discharge, please contact a member of your healthcare team. If you have left the hospital and have any questions, please contact your primary care physician. Reason For Referral No Data Found Procedures Procedure Name Date Status Code Code Syste m Cardiac loop recorder insertion completed 7234 31682 SNOMEDCT Problems Problem Start Date Resolved Date Status Code Code System RHEUMATOID ARTHRITIS active 36334856 SNOMED-CT OA active 061548895 SNOMED-CT RHEUMATOID ARTHRITIS WITH RHEUMATOID FACTOR, UNSPECIFIED active 745929901 SNOMED-CT CANCER OF THE BREAST 12/06/2016 resolved 83953557 9 SNOMED-CT PEPTIC ULCERS 12/06/2016 resolved 54610153 SNOME D-CT HYPERLIPIDEMIA 12/06/2016 resolved 20473178 SNOM ED-CT Allergies and Adverse Reactions Allergy Substance Reaction Severity Start Date Concern Status Co de Code System No Known Drug Allergies Active 487755333 SNOMED-CT Plan of Treatment Established Patient 15 10/11/2024 Encounters Encounter Diagnosis Start Date Code Code Sys tem Rheumatoid arthritis 01/19/2022 81478876 SNOMED- CT Personal Care Team Section Performer Name Performer Role Active Date Inactive Da te
--- OUTSIDE RECORDS SUMMARY | 2024-09-24 06:31 | XMS_ITS ---
Author Organization Unknown Address [address] [place] [address] [phone] Phone Care Team Providers Care Call Center Manager Name Role Phone EUSEBIA MCGINNIS Attending Unavailable [...] 300 CVX Pneumococcal conjugate PCV20 , polysaccharide [id number] conjugate, adjuvant, PF 05/09/2022 Completed 216 CVX [...] em Smoking History Never smoker (Never Smoked) 749269201 SNOMED CT Smoking History Former smoker 12/06/19703801 0000[address] SNOMED [address] Sex Female Sexual Orientation Straight or Heterosexual 45175526 SNOMED CT Vital Signs Vital Sign Value Unit Energy Value Energy Unit Date/Time Recent/Initial? Code Code System Body Mass Index 40.42 kg/m2 06/04/2021 08:47 Initial 60862 -5 LOINC Systolic Blood Pressure 140 mm[Hg] 06/04/2021 08:47 Initial 8480- 6 LOINC Diastolic Blood Pressure 80 mm[Hg] 06/04/2021 08:47 Initial 8462- 4 LOINC Body Surface Area 2.09 m2 06/04/2021 08:47 Initial 3140- 1 LOINC Height 157.480 0 cm 62.00 in 06/04/2021 08:47 Initial 8302- 2 LOINC O2 Saturation 96 % 2020 08:47 Initial 75807 -5 LOINC Pulse 92.0 /min 06/04/2021 08:47 Initial 8867- 4 LOINC Temperature 36.5 Catarina 97.7 F 06/04/20 08:47 Initial 8310- 5 LOINC Weight 100.24 kg 221.00 lbs 06/04/2021 08:47 Initial 96796 -7 [facility] Medications Medication Start Date End Date Route Frequency Dose Code Code System Medication Instructions Home Meds traZODone hydrochloride 50MG Oral Tablet 08/07/2018 Unknown Daily 1 TABLET 069760 RxNorm 1 TABLET Daily Oxybutynin 5MG Oral Tablet 05/22/2020 Unknown ORAL Daily 1 TABLET 341072 RxNorm 1 TABLET ORAL Daily Methotrexate Sodium 2.5MG Oral Tablet 06/19/2020 08/06/20 21 By mouth Once a week 8 TABLET 629659 RxNorm TAKE 8 TABLETS ONCE A WEEK Leflunomide 20MG Oral Tablet 08/07/2020 08/06/20 21 By mouth Daily 1 TABLET 765236 RxNorm TAKE 1 TABLET DAILY Nabumetone 750MG Oral Tablet 10/23/2020 Unknown By Mouth Twice a day 1 TABLET 909392 RxNorm 1 TABLET By Mouth Twice a day Atorvastatin Calcium 40MG Oral Tablet 02/05/2021 Unknown By Mouth Daily 1 TABLET 628382 RxNorm 1 TABLET By Mouth Daily amLODIPine Besylate 5MG Oral Tablet 02/05/2021 Unknown By Mouth Daily 1 TABLET 964307 RxNorm 1 TABLET By Mouth Daily Alendronate Sodium 70MG Oral Tablet 02/05/2021 Unknown Daily 1 TABLET 439091 RxNorm 1 TABLET Daily Sertraline HCl 100MG Oral Tablet 02/05/2021 Unknown Daily 1 TABLET 119331 RxNorm 1 TABLET Daily Folic Acid 1MG Oral Tablet 02/13/2021 02/16/20 22 By mouth Daily 1 TABLET 317628 RxNorm TAKE 1 TABLET DAILY Orencia Pre-Filled Syringe 125MG/1ML Subcutaneous Solution 05/15/2021 01/20/20 22 SUBCUT ANEOUS ONCE WEEKLY 125 MILLIGRAMS 0037171 RxNorm INJECT 125 MILLIGRAMS SUBCUTANEOU S ONCE WEEKLY Methotrexate Sodium 2.5MG Oral Tablet 08/06/2021 02/16/20 22 By mouth Once a week 8 TABLET 074047 RxNorm TAKE 8 TABLETS ONCE A WEEK Leflunomide 20MG Oral Tablet 08/06/2021 02/16/20 22 By mouth Daily 1 TABLET 852979 RxNorm TAKE 1 TABLET DAILY Folic Acid 1MG Oral Tablet 02/15/2022 09/09/19 23 By mouth Daily 1 TABLET 710322 RxNorm TAKE 1 TABLET DAILY Leflunomide 20MG Oral Tablet 02/15/2022 05/13/20 22 By mouth Daily 1 TABLET 940108 RxNorm TAKE 1 TABLET DAILY Methotrexate Sodium 2.5MG Oral Tablet 02/15/2022 09/09/19 23 By mouth Once a week 8 TABLET 101870 RxNorm TAKE 8 TABLETS ONCE A WEEK Leflunomide 10MG Oral Tablet 05/13/2022 09/09/19 23 By Mouth Daily 1 TABLET 093437 RxNorm 1 TABLET By Mouth Daily Leflunomide 10MG Oral Tablet 09/09/2022 02/15/20 23 By Mouth Daily 2 TABLET 764297 RxNorm 2 TABLET By Mouth Daily Methotrexate Sodium 2.5MG Oral Tablet 09/09/2022 12/01/19 24 By mouth Once a week 8 TABLET 950958 RxNorm TAKE 8 TABLETS ONCE A WEEK Folic Acid 1MG Oral Tablet 09/09/2022 12/16/19 24 By mouth Daily 1 TABLET 075285 RxNorm TAKE 1 TABLET DAILY predniSONE 5MG Oral Tablet 09/09/2022 12/01/19 24 By Mouth 100383 RxNorm 4 TABLET By Mouth for 3 days3 TABLET By Mouth for 3 days2 TABLET By Mouth for 3 days1 TABLET By Mouth for 3 days Leflunomide 10MG Oral Tablet 02/14/2023 09/29/19 24 By Mouth Daily 2 TABLET 766373 RxNorm TAKE 2 TABLETS DAILY ( DOSAGE CHANGE ) Leflunomide 10MG Oral Tablet 02/14/2023 08/02/20 23 By Mouth Daily 2 TABLET 728745 RxNorm TAKE 2 TABLETS DAILY ( DOSAGE CHANGE ) Leflunomide 10MG Oral Tablet 09/29/2023 12/01/19 24 By Mouth Daily 2 TABLET 841741 RxNorm TAKE 2 TABLETS DAILY Losartan Potassium 50MG Oral Tablet 12/01/2023 Unknown By Mouth As Directed 1 TABLET 044771 RxNorm 1 TABLET By Mouth As Directed Cetirizine 10MG Oral Tablet 12/01/2023 Unknown By Mouth As Directed 1 TABLET 1134036 RxNorm 1 TABLET By Mouth As Directed Vitamin D3 250 MCG Oral Tablet 12/01/2023 Unknown By Mouth As Directed 1 TABLET RxNorm 1 TABLET By Mouth As Directed Fish Oil 1200 MG Oral Capsule, Liquid Filled 12/01/2023 Unknown By Mouth As Directed 1 CAPSULE 424620 RxNorm 1 CAPSULE By Mouth As Directed Leflunomide 10MG Oral Tablet 12/01/2023 Unknown By Mouth Daily 1 TABLET 838231 RxNorm 1 TABLET By Mouth Daily Methotrexate Sodium 2.5MG Oral Tablet 12/01/2023 06/21/20 24 By mouth Once a week 8 TABLET 519292 RxNorm TAKE 8 TABLETS ONCE A WEEK Folic Acid 1MG Oral Tablet 12/16/2023 08/30/20 24 By mouth Daily 1 TABLET 822044 RxNorm TAKE 1 TABLET DAILY Methotrexate Sodium 2.5MG Oral Tablet 06/21/2024 Unknown By mouth Once a week 8 TABLET 907921 RxNorm TAKE 8 TABLETS ONCE A WEEK Folic Acid 1MG Oral Tablet 08/30/2024 Unknown By mouth Daily 1 TABLET 376526 RxNorm TAKE 1 TABLET DAILY Assessment You had the following problems: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 Rheumatoid Arthritis - due to recurrent skin cancers, will hold Orencia - pt to report any increase in pain; can consider shoulder injections if needed in future - Cont MTX, folate, arava, labs due now and q3m for medication monitoring - Recent QTB negative, due yearly when on biologics. Follow up in 3 months. All of the patient's questions and concerns were addressed. Hospital Discharge Instructions Should you have any questions prior to discharge, please contact a member of your healthcare team. If you have left the hospital and have any questions, please contact your primary care physician. Reason For Referral No Data Found Problems Problem Start Date Resolved Date Status Code Code System RHEUMATOID ARTHRITIS active 20110338 SNOMED-CT OA active 218956874 SNOMED-CT RHEUMATOID ARTHRITIS WITH RHEUMATOID FACTOR, UNSPECIFIED active 197799175 SNOMED-CT CANCER OF THE BREAST 12/06/2016 resolved 02559331 9 SNOMED-CT PEPTIC ULCERS 12/06/2016 resolved 20697031 SNOME D-CT HYPERLIPIDEMIA 12/06/2016 resolved 39601587 SNOM ED-CT Allergies and Adverse Reactions Allergy Substance Reaction Severity Start Date Concern Status Co de Code System No Known Drug Allergies Active 804388162 SNOMED-CT Plan of Treatment Established Patient 15 10/11/2024 Encounters Encounter Diagnosis Start Date Code Code Sys tem Rheumatoid arthritis 06/04/2021 00401750 SNOMED- CT Personal Care Team Section Performer Name Performer Role Active Date Inactive Da te
--- OUTSIDE RECORDS SUMMARY | 2024-09-24 06:31 | XMS_ITS ---
Author Organization Unknown Address [address] [place] [address] [phone] Phone Care Team Providers Care Kiln Operator Name Role Phone EUSEBIA MCGINNIS Attending [...] 300 CVX Pneumococcal conjugate PCV20 , polysaccharide [id number] conjugate, adjuvant, PF 05/09/2022 Completed 216 CVX [...] em Smoking History Never smoker (Never Smoked) 674131225 SNOMED CT Smoking History Former smoker 12/06/19702557 5944212 SNOM[address] Sex Female Sexual Orientation Straight or Heterosexual 47942578 SNOMED CT Vital Signs Vital Sign Value Unit [place] [facility] [place] [facility] Date/Time Recent/Initial? Code Code System Body Mass Index 39.51 kg/m2 09/09/2022 10:09 Initial 29309 -5 LOINC Systolic Blood Pressure 134 mm[Hg] 09/09/2022 10:09 Initial 8480- 6 LOINC Diastolic Blood Pressure 70 mm[Hg] 09/09/2022 10:09 Initial 8462- 4 LOINC Body Surface Area 2.07 m2 09/09/2022 10:09 Initial 3140- 1 LOINC Height 157.480 0 cm 62.00 in 09/09/2022 10:09 Initial 8302- 2 LOINC O2 Saturation 96 % 2022 10:09 Initial 43354 -5 LOINC Pulse 64.0 /min 09/09/2022 10:09 Initial 8867- 4 LOINC Respiration 20 /min 09/09/19 10:09 Initial 9279- 1 LOINC Temperature 36.4 Catarina 97.5 F 09/09/19 10:09 Initial 8310- 5 [facility] Weight 97.98 kg 216.00 lbs 09/09/2022 10:09 Initial 73273 -7 [facility] Medications Medication Start Date End Date Route Frequency Dose Code Code System Medication Instructions Home Meds traZODone hydrochloride 50MG Oral Tablet 08/07/2018 Unknown Daily 1 TABLET 169898 RxNorm 1 TABLET Daily Oxybutynin 5MG Oral Tablet 05/22/2020 Unknown ORAL Daily 1 TABLET 069073 RxNorm 1 TABLET ORAL Daily Nabumetone 750MG Oral Tablet 10/23/2020 Unknown By Mouth Twice a day 1 TABLET 884729 RxNorm 1 TABLET By Mouth Twice a day Atorvastatin Calcium 40MG Oral Tablet 02/05/2021 Unknown By Mouth Daily 1 TABLET 105648 RxNorm 1 TABLET By Mouth Daily amLODIPine Besylate 5MG Oral Tablet 02/05/2021 Unknown By Mouth Daily 1 TABLET 721322 RxNorm 1 TABLET By Mouth Daily Alendronate Sodium 70MG Oral Tablet 02/05/2021 Unknown Daily 1 TABLET 301761 RxNorm 1 TABLET Daily Sertraline HCl 100MG Oral Tablet 02/05/2021 Unknown Daily 1 TABLET 758934 RxNorm 1 TABLET Daily Folic Acid 1MG Oral Tablet 02/15/2022 3 By mouth Daily 1 TABLET 598590 RxNorm TAKE 1 TABLET DAILY Methotrexate Sodium 2.5MG Oral Tablet 02/15/2022 3 By mouth Once a week 8 TABLET 962972 RxNorm TAKE 8 TABLETS ONCE A WEEK Leflunomide 10MG Oral Tablet 05/13/2022 3 By Mouth Daily 1 TABLET 772162 RxNorm 1 TABLET By Mouth Daily Leflunomide 10MG Oral Tablet 09/09/2022 3 By Mouth Daily 2 TABLET 998380 RxNorm 2 TABLET By Mouth Daily Methotrexate Sodium 2.5MG Oral Tablet 09/09/2022 4 By mouth Once a week 8 TABLET 560156 RxNorm TAKE 8 TABLETS ONCE A WEEK Folic Acid 1MG Oral Tablet 09/09/2022 4 By mouth Daily 1 TABLET 980926 RxNorm TAKE 1 TABLET DAILY predniSONE 5MG Oral Tablet 09/09/2022 4 By Mouth 444105 RxNorm 4 TABLET By Mouth for 3 [...] Unknown By Mouth As Directed 1 TABLET 872904 RxNorm 1 TABLET By Mouth As Directed Cetirizine 10MG Oral Tablet 12/01/2023 Unknown By Mouth As Directed 1 TABLET 2609915 RxNorm 1 TABLET By Mouth As Directed Vitamin D3 250 MCG Oral Tablet 12/01/2023 Unknown By Mouth As Directed 1 TABLET RxNorm 1 TABLET By Mouth As Directed Fish Oil 1200 MG Oral Capsule, Liquid Filled 12/01/2023 Unknown By Mouth As Directed 1 CAPSULE 318430 RxNorm 1 CAPSULE By Mouth As Directed Leflunomide 10MG Oral Tablet 12/01/2023 Unknown By Mouth Daily 1 TABLET 960463 RxNorm 1 TABLET By Mouth Daily Methotrexate Sodium 2.5MG Oral Tablet 12/01/2023 4 By mouth Once a week 8 TABLET 457723 RxNorm TAKE 8 TABLETS ONCE A WEEK Folic Acid 1MG Oral Tablet 12/16/2023 4 By mouth Daily 1 TABLET 233615 RxNorm TAKE 1 TABLET DAILY Methotrexate Sodium 2.5MG Oral Tablet 06/21/2024 Unknown By mouth Once a week 8 TABLET 552252 RxNorm TAKE 8 TABLETS ONCE A WEEK Folic Acid 1MG Oral Tablet 08/30/2024 Unknown By mouth Daily 1 TABLET 691657 RxNorm TAKE 1 TABLET DAILY Assessment You [...] - seeing heme for elevated wbc - prednisone taper for flare up RTC 3 mos. All of the patient's [...] Status Code Code System RHEUMATOID ARTHRITIS active 21160551 SNOMED-CT OA active 852419604 SNOMED-CT RHEUMATOID ARTHRITIS WITH RHEUMATOID FACTOR, UNSPECIFIED active 086619870 SNOMED-CT CANCER OF THE BREAST 12/06/2016 resolved 65283153 9 SNOMED-CT PEPTIC ULCERS 12/06/2016 resolved 91397331 SNOME D-CT HYPERLIPIDEMIA 12/06/2016 resolved 52714747 SNOM ED-CT Allergies and Adverse Reactions Allergy Substance Reaction Severity Start Date Concern Status Co de Code System No Known Drug Allergies Active 893313519 SNOMED-CT Plan of Treatment Established Patient 15 10/11/2024 Encounters Encounter Diagnosis Start Date Code Code Sys tem Rheumatoid arthritis 09/09/2022 61911591 SNOMED- CT Personal Care Team Section Performer Name Performer Role Active Date Inactive Da jennifer
--- OUTSIDE RECORDS SUMMARY | 2024-09-24 06:31 | XMS_ITS ---
Author Organization Unknown Address [address] [place] [address] [phone] Phone Care Team Providers Care Solution Specialist Name Role Phone EUSEBIA MCGINNIS Attending Unavailable OTHER PHYSICIAN Primary Unavailable Immunization Immunization Date Status Additional [...] 300 CVX Pneumococcal conjugate PCV20 , polysaccharide [id number] conjugate, adjuvant, PF 05/09/2022 Completed 216 CVX [...] em Smoking History Never smoker (Never Smoked) 662040071 SNOMED CT Smoking History Former smoker 12/06/19705396 [address]64[address] SNOM[address] Sex Female Sexual Orientation Straight or Heterosexual 26708923 SNOMED CT Vital Signs Vital Sign Value Unit [place] [facility] [place] [facility] Date/Time Recent/Initial? Code Code System Body Mass Index 40.38 kg/m2 09/24/2021 13:44 Initial 83007 -5 LOINC Systolic Blood Pressure 148 mm[Hg] 09/24/2021 13:44 Initial 8480- 6 LOINC Diastolic Blood Pressure 74 mm[Hg] 09/24/2021 13:44 Initial 8462- 4 LOINC Body Surface Area 2.09 m2 09/24/2021 13:44 Initial 3140- 1 LOINC Height 157.480 0 cm 62.00 in 09/24/2021 13:44 Initial 8302- 2 LOINC O2 Saturation 95 % 2021 13:44 Initial 95185 -5 LOINC Pulse 82.0 /min 09/24/2021 13:44 Initial 8867- 4 LOINC Temperature 36.5 Catarina 97.7 F 09/24/19 13:44 Initial 8310- 5 LOINC Weight 100.15 kg 220.80 lbs 09/24/2021 13:44 Initial 60790 -7 [facility] Medications Medication Start Date End Date Route Frequency Dose Code Code System Medication Instructions Home Meds traZODone hydrochloride 50MG Oral Tablet 08/07/2018 Unknown Daily 1 TABLET 370005 RxNorm 1 TABLET Daily Oxybutynin 5MG Oral Tablet 05/22/2020 Unknown ORAL Daily 1 TABLET 893332 RxNorm 1 TABLET ORAL Daily Nabumetone 750MG Oral Tablet 10/23/2020 Unknown By Mouth Twice a day 1 TABLET 200053 RxNorm 1 TABLET By Mouth Twice a day Atorvastatin Calcium 40MG Oral Tablet 02/05/2021 Unknown By Mouth Daily 1 TABLET 549057 RxNorm 1 TABLET By Mouth Daily amLODIPine Besylate 5MG Oral Tablet 02/05/2021 Unknown By Mouth Daily 1 TABLET 568685 RxNorm 1 TABLET By Mouth Daily Alendronate Sodium 70MG Oral Tablet 02/05/2021 Unknown Daily 1 TABLET 111740 RxNorm 1 TABLET Daily Sertraline HCl 100MG Oral Tablet 02/05/2021 Unknown Daily 1 TABLET 134466 RxNorm 1 TABLET Daily Folic Acid 1MG Oral Tablet 02/13/2021 02/16/20 22 By mouth Daily 1 TABLET 806781 RxNorm TAKE 1 TABLET DAILY Orencia Pre-Filled Syringe 125MG/1ML Subcutaneous Solution 05/15/2021 01/20/20 22 SUBCUT ANEOUS ONCE WEEKLY 125 MILLIGRAMS 7410619 RxNorm INJECT 125 MILLIGRAMS SUBCUTANEOU S ONCE WEEKLY Methotrexate Sodium 2.5MG Oral Tablet 08/06/2021 02/16/20 22 By mouth Once a week 8 TABLET 818603 RxNorm TAKE 8 TABLETS ONCE A WEEK Leflunomide 20MG Oral Tablet 08/06/2021 02/16/20 22 By mouth Daily 1 TABLET 858825 RxNorm TAKE 1 TABLET DAILY Folic Acid 1MG Oral Tablet 02/15/2022 09/09/19 23 By mouth Daily 1 TABLET 278801 RxNorm TAKE 1 TABLET DAILY Leflunomide 20MG Oral Tablet 02/15/2022 05/13/20 22 By mouth Daily 1 TABLET 737874 RxNorm TAKE 1 TABLET DAILY Methotrexate Sodium 2.5MG Oral Tablet 02/15/2022 09/09/19 23 By mouth Once a week 8 TABLET 049089 RxNorm TAKE 8 TABLETS ONCE A WEEK Leflunomide 10MG Oral Tablet 05/13/2022 09/09/19 23 By Mouth Daily 1 TABLET 837735 RxNorm 1 TABLET By Mouth Daily Leflunomide 10MG Oral Tablet 09/09/2022 02/15/20 23 By Mouth Daily 2 TABLET 668215 RxNorm 2 TABLET By Mouth Daily Methotrexate Sodium 2.5MG Oral Tablet 09/09/2022 12/01/19 24 By mouth Once a week 8 TABLET 329594 RxNorm TAKE 8 TABLETS ONCE A WEEK Folic Acid 1MG Oral Tablet 09/09/2022 12/16/19 24 By mouth Daily 1 TABLET 543548 RxNorm TAKE 1 TABLET DAILY predniSONE 5MG Oral Tablet 09/09/2022 12/01/19 24 By Mouth 037318 RxNorm 4 TABLET By Mouth for 3 days3 TABLET By Mouth for 3 days2 TABLET By Mouth for 3 days1 TABLET By Mouth for 3 days Leflunomide 10MG Oral Tablet 02/14/2023 09/29/19 24 By Mouth Daily 2 TABLET 034234 RxNorm TAKE 2 TABLETS DAILY ( DOSAGE CHANGE ) Leflunomide 10MG Oral Tablet 02/14/2023 08/02/20 23 By Mouth Daily 2 TABLET 076230 RxNorm TAKE 2 TABLETS DAILY ( DOSAGE CHANGE ) Leflunomide 10MG Oral Tablet 09/29/2023 12/01/19 24 By Mouth Daily 2 TABLET 053694 RxNorm TAKE 2 TABLETS DAILY Losartan Potassium 50MG Oral Tablet 12/01/2023 Unknown By Mouth As Directed 1 TABLET 514231 RxNorm 1 TABLET By Mouth As Directed Cetirizine 10MG Oral Tablet 12/01/2023 Unknown By Mouth As Directed 1 TABLET 0091599 RxNorm 1 TABLET By Mouth As Directed Vitamin D3 250 MCG Oral Tablet 12/01/2023 Unknown By Mouth As Directed 1 TABLET RxNorm 1 TABLET By Mouth As Directed Fish Oil 1200 MG Oral Capsule, Liquid Filled 12/01/2023 Unknown By Mouth As Directed 1 CAPSULE 025695 RxNorm 1 CAPSULE By Mouth As Directed Leflunomide 10MG Oral Tablet 12/01/2023 Unknown By Mouth Daily 1 TABLET 636044 RxNorm 1 TABLET By Mouth Daily Methotrexate Sodium 2.5MG Oral Tablet 12/01/2023 06/21/20 24 By mouth Once a week 8 TABLET 022364 RxNorm TAKE 8 TABLETS ONCE A WEEK Folic Acid 1MG Oral Tablet 12/16/2023 08/30/20 24 By mouth Daily 1 TABLET 115997 RxNorm TAKE 1 TABLET DAILY Methotrexate Sodium 2.5MG Oral Tablet 06/21/2024 Unknown By mouth Once a week 8 TABLET 671031 RxNorm TAKE 8 TABLETS ONCE A WEEK Folic Acid 1MG Oral Tablet 08/30/2024 Unknown By mouth Daily 1 TABLET 254124 RxNorm TAKE 1 TABLET DAILY Assessment You [...] Orencia (both mtx and arava are hepatotoxic) RTC 3 mos. All of the patient's [...] Status Code Code System RHEUMATOID ARTHRITIS active 28038243 SNOMED-CT OA active 716544403 SNOMED-CT RHEUMATOID ARTHRITIS WITH RHEUMATOID FACTOR, UNSPECIFIED active 706716473 SNOMED-CT CANCER OF THE BREAST 12/06/2016 resolved 70465048 9 SNOMED-CT PEPTIC ULCERS 12/06/2016 resolved 19858063 SNOME D-CT HYPERLIPIDEMIA 12/06/2016 resolved 39794470 SNOM ED-CT Allergies and Adverse Reactions Allergy Substance Reaction Severity Start Date Concern Status Co de Code System No Known Drug Allergies Active 757015846 SNOMED-CT Plan of Treatment Established Patient 15 10/11/2024 Encounters Encounter Diagnosis Start Date Code Code Sys tem Rheumatoid arthritis 09/24/2021 26391895 SNOMED- CT Personal Care Team Section Performer Name Performer Role Active Date Inactive Da te
--- OUTSIDE RECORDS SUMMARY | 2024-09-24 06:32 | XMS_ITS ---
Author Organization Unknown Address [address] [place] [address] [phone] Phone Care Team Providers Care Stallion Manager Name Role Phone EUSEBIA MCGINNIS Attending Unavailable DEXTER TSAI Primary Unavailable EUSEBIA MCGINNIS Transferring Provider Immunization Immunization Date Status Additional Notes Code [...] 300 CVX Pneumococcal conjugate PCV20 , polysaccharide [id number] conjugate, adjuvant, PF 05/09/2022 Completed 216 CVX [...] em Smoking History Never smoker (Never Smoked) 659341388 SNOMED CT Smoking History Former smoker 12/06/19701756 9747466 SNOMED CT Sex Female Sexual Orientation Straight or Heterosexual 82509632 SNOMED CT Vital Signs Vital Sign Value Unit [place] [facility] [place] [facility] Date/Time Recent/Initial? Code Code System Body Mass Index 41.01 kg/m2 06/21/2024 08:49 Initial 06113 -5 LOINC Systolic Blood Pressure 142 mm[Hg] 06/21/2024 08:49 Initial 8480- 6 LOINC Diastolic Blood Pressure 84 mm[Hg] 06/21/2024 08:49 Initial 8462- 4 LOINC Body Surface Area 2.11 m2 06/21/2024 08:49 Initial 3140- 1 LOINC Height 157.480 0 cm 62.00 in 06/21/2024 08:49 Initial 8302- 2 LOINC O2 Saturation 92 % 2023 08:49 Initial 06454 -5 LOINC Pulse 82.0 /min 06/21/2024 08:49 Initial 8867- 4 LOINC Temperature 37.0 Catarina 98.6 F 06/21/20 08:49 Initial 8310- 5 [facility] Weight 101.70 kg 224.20 lbs 06/21/2024 08:49 Initial 40496 -7 [facility] Medications Medication Start Date End Date Route Frequency Dose Code Code System Medication Instructions Home Meds traZODone hydrochloride 50MG Oral Tablet 08/07/2018 Unknown Daily 1 TABLET 918177 RxNorm 1 TABLET Daily Oxybutynin 5MG Oral Tablet 05/22/2020 Unknown ORAL Daily 1 TABLET 346730 RxNorm 1 TABLET ORAL Daily Nabumetone 750MG Oral Tablet 10/23/2020 Unknown By Mouth Twice a day 1 TABLET 321687 RxNorm 1 TABLET By Mouth Twice a day Atorvastatin Calcium 40MG Oral Tablet 02/05/2021 Unknown By Mouth Daily 1 TABLET 475269 RxNorm 1 TABLET By Mouth Daily amLODIPine Besylate 5MG Oral Tablet 02/05/2021 Unknown By Mouth Daily 1 TABLET 137681 RxNorm 1 TABLET By Mouth Daily Alendronate Sodium 70MG Oral Tablet 02/05/2021 Unknown Daily 1 TABLET 553601 RxNorm 1 TABLET Daily Sertraline HCl 100MG Oral Tablet 02/05/2021 Unknown Daily 1 TABLET 002621 RxNorm 1 TABLET Daily Losartan Potassium 50MG Oral Tablet 12/01/2023 Unknown By Mouth As Directed 1 TABLET 616764 RxNorm 1 TABLET By Mouth As Directed Cetirizine 10MG Oral Tablet 12/01/2023 Unknown By Mouth As Directed 1 TABLET 7281794 RxNorm 1 TABLET By Mouth As Directed Vitamin D3 250 MCG Oral Tablet 12/01/2023 Unknown By Mouth As Directed 1 TABLET RxNorm 1 TABLET By Mouth As Directed Fish Oil 1200 MG Oral Capsule, Liquid Filled 12/01/2023 Unknown By Mouth As Directed 1 CAPSULE 285021 RxNorm 1 CAPSULE By Mouth As Directed Leflunomide 10MG Oral Tablet 12/01/2023 Unknown By Mouth Daily 1 TABLET 914412 RxNorm 1 TABLET By Mouth Daily Methotrexate Sodium 2.5MG Oral Tablet 12/01/2023 4 By mouth Once a week 8 TABLET 225248 RxNorm TAKE 8 TABLETS ONCE A WEEK Folic Acid 1MG Oral Tablet 12/16/2023 4 By mouth Daily 1 TABLET 485677 RxNorm TAKE 1 TABLET DAILY Methotrexate Sodium 2.5MG Oral Tablet 06/21/2024 Unknown By mouth Once a week 8 TABLET 607072 RxNorm TAKE 8 TABLETS ONCE A WEEK Folic Acid 1MG Oral Tablet 08/30/2024 Unknown By mouth Daily 1 TABLET 595570 RxNorm TAKE 1 TABLET DAILY Assessment You had the following problems: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 Rheumatoid Arthritis - mod to severe at baseline - off Orencia d/t recurrent skin cancers. - on MTX 20mg per week + Arava 20mg per day - we decreased arava to 10mg/d - due to increased termination clerk hepatotoxic risk with this combination - tolerating well so far - labs required q3m, no toxicity seen - seeing heme for elevated wbc - inflammation remains elevated but not a candidate for biologics d/t skin CA - Referral to orthopedics for L hand tenosynovitis - injections done and doing better 2. 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 T spine pain - xrays today and refer to pain mgt RTC 3 -4 mos. Labs q3m. All of the patient's questions and concerns were addressed. Hospital Discharge Instructions Should you have any questions prior to discharge, please contact a member of your healthcare team. If you have left the hospital and have any questions, please contact your primary care physician. Reason For Referral Reason for Referral: Pain (Pending T-Spine XR) Receiving Provider[facility] Appointment Date: 07/19/2024 Problems Problem Start Date Resolved Date Status Code Code System RHEUMATOID ARTHRITIS active 77694865 SNOMED-CT OA active 434295175 SNOMED-CT RHEUMATOID ARTHRITIS WITH RHEUMATOID FACTOR, UNSPECIFIED active 081988267 SNOMED-CT CANCER OF THE BREAST 12/06/2016 resolved 07394298 9 SNOMED-CT PEPTIC ULCERS 12/06/2016 resolved 84010255 SNOME D-CT HYPERLIPIDEMIA 12/06/2016 resolved 61587642 SNOM ED-CT Allergies and Adverse Reactions Allergy Substance Reaction Severity Start Date Concern Status Co de Code System No Known Drug Allergies Active 789450462 SNOMED-CT Plan of Treatment Established Patient 15 10/11/2024 Encounters Encounter Diagnosis Start Date Code Code Sys tem Rheumatoid arthritis 06/21/2024 62161312 SNOMED- CT Personal Care Team Section Performer Name Performer Role Active Date Inactive Da te
--- OUTSIDE RECORDS SUMMARY | 2024-09-24 06:32 | XMS_ITS ---
Author Organization Unknown Address [address] [place] [address] [phone] Phone Care Team Providers Care Hospital Receptionist Name Role Phone EUSEBIA MCGINNIS Attending Unavailable [...] 300 CVX Pneumococcal conjugate PCV20 , polysaccharide RCQ000 conjugate, adjuvant, PF 05/09/2022 Completed 216 CVX [...] em Smoking History Never smoker (Never Smoked) 545911848 SNOMED CT Smoking History Former smoker 12/06/19707705 2158612 SNOM[address] Sex Female Sexual Orientation Straight or Heterosexual 24505065 SNOMED CT Vital Signs Vital Sign Value Unit [place] [facility] [place] [facility] Date/Time Recent/Initial? Code Code System Body Mass Index 41.12 kg/m2 12/01/2023 09:57 Initial 26894 -5 LOINC Systolic Blood Pressure 124 mm[Hg] 12/01/2023 09:57 Initial 8480- 6 LOINC Diastolic Blood Pressure 74 mm[Hg] 12/01/2023 09:57 Initial 8462- 4 LOINC Body Surface Area 2.11 m2 12/01/2023 09:57 Initial 3140- 1 LOINC Height 157.480 0 cm 62.00 in 12/01/2023 09:57 Initial 8302- 2 LOINC O2 Saturation 95 % 2023 09:57 Initial 13181 -5 LOINC Pulse 72.0 /min 12/01/2023 09:57 Initial 8867- 4 LOINC Temperature 37.1 Catarina 98.7 F 12/01/19 09:57 Initial 8310- 5 LOINC Weight 101.97 kg 224.80 lbs 12/01/2023 09:57 Initial 69686 -7 [facility] Medications Medication Start Date End Date Route Frequency Dose Code Code System Medication Instructions Home Meds traZODone hydrochloride 50MG Oral Tablet 08/07/2018 Unknown Daily 1 TABLET 284154 RxNorm 1 TABLET Daily Oxybutynin 5MG Oral Tablet 05/22/2020 Unknown ORAL Daily 1 TABLET 637469 RxNorm 1 TABLET ORAL Daily Nabumetone 750MG Oral Tablet 10/23/2020 Unknown By Mouth Twice a day 1 TABLET 429575 RxNorm 1 TABLET By Mouth Twice a day Atorvastatin Calcium 40MG Oral Tablet 02/05/2021 Unknown By Mouth Daily 1 TABLET 164213 RxNorm 1 TABLET By Mouth Daily amLODIPine Besylate 5MG Oral Tablet 02/05/2021 Unknown By Mouth Daily 1 TABLET 824074 RxNorm 1 TABLET By Mouth Daily Alendronate Sodium 70MG Oral Tablet 02/05/2021 Unknown Daily 1 TABLET 119363 RxNorm 1 TABLET Daily Sertraline HCl 100MG Oral Tablet 02/05/2021 Unknown Daily 1 TABLET 926635 RxNorm 1 TABLET Daily Methotrexate Sodium 2.5MG Oral Tablet 09/09/2022 4 By mouth Once a week 8 TABLET 152184 RxNorm TAKE 8 TABLETS ONCE A WEEK Folic Acid 1MG Oral Tablet 09/09/2022 4 By mouth Daily 1 TABLET 106054 RxNorm TAKE 1 TABLET DAILY Leflunomide 10MG Oral Tablet 09/29/2023 4 By Mouth Daily 2 TABLET 657940 RxNorm TAKE 2 TABLETS DAILY Losartan Potassium 50MG Oral Tablet 12/01/2023 Unknown By Mouth As Directed 1 TABLET 795290 RxNorm 1 TABLET By Mouth As Directed Cetirizine 10MG Oral Tablet 12/01/2023 Unknown By Mouth As Directed 1 TABLET 5374324 RxNorm 1 TABLET By Mouth As Directed Vitamin D3 250 MCG Oral Tablet 12/01/2023 Unknown By Mouth As Directed 1 TABLET RxNorm 1 TABLET By Mouth As Directed Fish Oil 1200 MG Oral Capsule, Liquid Filled 12/01/2023 Unknown By Mouth As Directed 1 CAPSULE 736531 RxNorm 1 CAPSULE By Mouth As Directed Leflunomide 10MG Oral Tablet 12/01/2023 Unknown By Mouth Daily 1 TABLET 481721 RxNorm 1 TABLET By Mouth Daily Methotrexate Sodium 2.5MG Oral Tablet 12/01/2023 4 By mouth Once a week 8 TABLET 782334 RxNorm TAKE 8 TABLETS ONCE A WEEK Folic Acid 1MG Oral Tablet 12/16/2023 4 By mouth Daily 1 TABLET 190325 RxNorm TAKE 1 TABLET DAILY Methotrexate Sodium 2.5MG Oral Tablet 06/21/2024 Unknown By mouth Once a week 8 TABLET 926185 RxNorm TAKE 8 TABLETS ONCE A WEEK Folic Acid 1MG Oral Tablet 08/30/2024 Unknown By mouth Daily 1 TABLET 806041 RxNorm TAKE 1 TABLET DAILY Assessment You had the following problems: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 Rheumatoid Arthritis - mod to severe but doing better lately - off Orencia d/t recurrent skin cancers. 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 Knee DJD - s/p L TKR [...] Status Code Code System RHEUMATOID ARTHRITIS active 81107587 SNOMED-CT OA active 109427020 SNOMED-CT RHEUMATOID ARTHRITIS WITH RHEUMATOID FACTOR, UNSPECIFIED active 287132157 SNOMED-CT CANCER OF THE BREAST 12/06/2016 resolved 26796895 9 SNOMED-CT PEPTIC ULCERS 12/06/2016 resolved 93483219 SNOME D-CT HYPERLIPIDEMIA 12/06/2016 resolved 99378764 SNOM ED-CT Allergies and Adverse Reactions Allergy Substance Reaction Severity Start Date Concern Status Co de Code System No Known Drug Allergies Active 189390141 SNOMED-CT Plan of Treatment Established Patient 15 10/11/2024 Future Order Description Future Order Date Futu re Order Loinc: CBC W DIFF 12/01/2023 LOINC: 16991-4 SEDIMENTATION RATE WESTERGREN 12/01/2023 L OINC: 17374-3 COMPREHENSIVE METABOLIC PANEL 12/01/2023 L OINC: 69933-7 CRP INFLAMMATION 12/01/2023 LOINC: 1988- Encounters Encounter Diagnosis Start Date Code Code Sys tem Rheumatoid arthritis 12/01/2023 57305067 SNOMED- CT Personal Care Team Section Performer Name Performer Role Active Date Inactive Da te
--- OUTSIDE RECORDS SUMMARY | 2024-09-24 06:32 | XMS_ITS ---
Author Organization Unknown Address [address] [place] [address] [phone] Phone Care Team Providers Care Almond Huller Name Role Phone EUSEBIA MCGINNIS Attending Unavailable [...] 300 CVX Pneumococcal conjugate PCV20 , polysaccharide NTB196 conjugate, adjuvant, PF 05/09/2022 Completed 216 CVX [...] em Smoking History Never smoker (Never Smoked) 772638343 SNOMED CT Smoking History Former smoker 12/06/19708571 1743017 SNOMED CT Sex Female Sexual Orientation Straight or Heterosexual 84062709 SNOMED CT Vital Signs Vital Sign Value Unit Marion Value Marion Unit Date/Time Recent/Initial? Code Code System Body Mass Index 41.15 kg/m2 08/02/2023 14:00 Initial 55521 -5 LOINC Systolic Blood Pressure 130 mm[Hg] 08/02/2023 14:00 Initial 8480- 6 LOINC Diastolic Blood Pressure 66 mm[Hg] 08/02/2023 14:00 Initial 8462- 4 LOINC Body Surface Area 2.11 m2 08/02/2023 14:00 Initial 3140- 1 LOINC Height 157.480 0 cm 62.00 in 08/02/2023 14:00 Initial 8302- 2 LOINC O2 Saturation 97 % 2022 14:00 Initial 05749 -5 LOINC Pulse 67.0 /min 08/02/2023 14:00 Initial 8867- 4 LOINC Temperature 36.4 Catarina 97.5 F 08/02/20 14:00 Initial 8310- 5 LOINC Weight 102.06 kg 225.00 lbs 08/02/2023 14:00 Initial 32760 -7 [facility] Medications Medication Start Date End Date Route Frequency Dose Code Code System Medication Instructions Home Meds traZODone hydrochloride 50MG Oral Tablet 08/07/2018 Unknown Daily 1 TABLET 001542 RxNorm 1 TABLET Daily Oxybutynin 5MG Oral Tablet 05/22/2020 Unknown ORAL Daily 1 TABLET 456993 RxNorm 1 TABLET ORAL Daily Nabumetone 750MG Oral Tablet 10/23/2020 Unknown By Mouth Twice a day 1 TABLET 099035 RxNorm 1 TABLET By Mouth Twice a day Atorvastatin Calcium 40MG Oral Tablet 02/05/2021 Unknown By Mouth Daily 1 TABLET 292427 RxNorm 1 TABLET By Mouth Daily amLODIPine Besylate 5MG Oral Tablet 02/05/2021 Unknown By Mouth Daily 1 TABLET 763459 RxNorm 1 TABLET By Mouth Daily Alendronate Sodium 70MG Oral Tablet 02/05/2021 Unknown Daily 1 TABLET 813032 RxNorm 1 TABLET Daily Sertraline HCl 100MG Oral Tablet 02/05/2021 Unknown Daily 1 TABLET 756650 RxNorm 1 TABLET Daily Methotrexate Sodium 2.5MG Oral Tablet 09/09/2022 4 By mouth Once a week 8 TABLET 651234 RxNorm TAKE 8 TABLETS ONCE A WEEK Folic Acid 1MG Oral Tablet 09/09/2022 4 By mouth Daily 1 TABLET 397631 RxNorm TAKE 1 TABLET DAILY predniSONE 5MG Oral Tablet 09/09/2022 4 By Mouth 160109 RxNorm 4 TABLET By Mouth for 3 days3 TABLET By Mouth for 3 days2 TABLET By Mouth for 3 days1 TABLET By Mouth for 3 days Leflunomide 10MG Oral Tablet 02/14/2023 4 By Mouth Daily 2 TABLET 746483 RxNorm TAKE 2 TABLETS DAILY ( DOSAGE CHANGE ) Leflunomide 10MG Oral Tablet 02/14/2023 3 By Mouth Daily 2 TABLET 20520404 RxNorm TAKE 2 TABLETS DAILY ( DOSAGE CHANGE ) Leflunomide 10MG Oral Tablet 09/29/2023 4 By Mouth Daily 2 TABLET 20520404 RxNorm TAKE 2 TABLETS DAILY Losartan Potassium 50MG Oral Tablet 12/01/2023 Unknown By Mouth As Directed 1 TABLET 055616 RxNorm 1 TABLET By Mouth As Directed Cetirizine 10MG Oral Tablet 12/01/2023 Unknown By Mouth As Directed 1 TABLET 4136933 RxNorm 1 TABLET By Mouth As Directed Vitamin D3 250 MCG Oral Tablet 12/01/2023 Unknown By Mouth As Directed 1 TABLET RxNorm 1 TABLET By Mouth As Directed Fish Oil 1200 MG Oral Capsule, Liquid Filled 12/01/2023 Unknown By Mouth As Directed 1 CAPSULE 821180 RxNorm 1 CAPSULE By Mouth As Directed Leflunomide 10MG Oral Tablet 12/01/2023 Unknown By Mouth Daily 1 TABLET 774583 RxNorm 1 TABLET By Mouth Daily Methotrexate Sodium 2.5MG Oral Tablet 12/01/2023 4 By mouth Once a week 8 TABLET 507318 RxNorm TAKE 8 TABLETS ONCE A WEEK Folic Acid 1MG Oral Tablet 12/16/2023 4 By mouth Daily 1 TABLET 335605 RxNorm TAKE 1 TABLET DAILY Methotrexate Sodium 2.5MG Oral Tablet 06/21/2024 Unknown By mouth Once a week 8 TABLET 342488 RxNorm TAKE 8 TABLETS ONCE A WEEK Folic Acid 1MG Oral Tablet 08/30/2024 Unknown By mouth Daily 1 TABLET 322185 RxNorm TAKE 1 TABLET DAILY Assessment You had the following problems: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 Rheumatoid Arthritis - mod to severe - still not controlled, but had to stop Orencia d/t recurrent skin cancers. - on MTX 20mg per week + Arava 20mg per day (increase arava back to 20mg per day since didn't tolerate a decrease to 10mg/d) - labs required q3m, no toxicity seen - seeing heme for elevated wbc - inflammation remains elevated but not a candidate for biologics d/t skin CA 2. Knee DJD - s/p L TKR [...] Status Code Code System RHEUMATOID ARTHRITIS active 88186488 SNOMED-CT OA active 785974917 SNOMED-CT RHEUMATOID ARTHRITIS WITH RHEUMATOID FACTOR, UNSPECIFIED active 774643780 SNOMED-CT CANCER OF THE BREAST 12/06/2016 resolved 81246440 9 SNOMED-CT PEPTIC ULCERS 12/06/2016 resolved 66857207 SNOME D-CT HYPERLIPIDEMIA 12/06/2016 resolved 66213487 SNOM ED-CT Allergies and Adverse Reactions Allergy Substance Reaction Severity Start Date Concern Status Co de Code System No Known Drug Allergies Active 844833851 SNOMED-CT Plan of Treatment Established Patient 15 10/11/2024 Encounters Encounter Diagnosis Start Date Code Code Sys tem Rheumatoid arthritis 08/02/2023 66879271 SNOMED- CT Personal Care Team Section Performer Name Performer Role Active Date Inactive Yaakov rodriguez
--- NOTE | 2024-09-24 07:09 | P.PNAN_ITS ---
Anes - Initial Pre Proc Eval Procedure: Operation Date: 09/24/24 08:45 Proposed Procedures p Insertion of Neurostimulator Implant - Adam Cat MD Date/Time: 09/24/24 07:09 Surgeon: Adam Cat MD Pre Op Diagnosis: Stress Incont Patient Data Age: 74 Gender: F Height: 1.57 m Weight: 105 kg Allergies Allergy/AdvReac Type Severity Reaction Status Date / Time No Known Allergies Allergy Verified 09/20/24 15:56 Home Medications ?Medication ?Instructions ?Recorded ?Confirmed ?Type alendronate 70 mg tablet 70 mg PO WEEKLY 09/20/24 09/20/24 History amlodipine 10 mg tablet 10 mg PO .MORNING 09/20/24 09/20/24 History atorvastatin 40 mg tablet 40 mg PO DAILY 09/20/24 09/20/24 History cetirizine 10 mg tablet 10 mg PO DAILY 09/20/24 09/20/24 History leflunomide 10 mg tablet 10 mg PO DAILY 09/20/24 09/20/24 History losartan 50 mg tablet 50 mg PO DAILY 09/20/24 09/20/24 History methotrexate sodium 2.5 mg tablet 20 mg PO WEEKLY 09/20/24 09/20/24 History metoprolol tartrate 25 mg tablet 25 mg PO BID 09/20/24 09/20/24 History nabumetone 750 mg tablet 750 mg PO BID 09/20/24 09/20/24 History oxybutynin chloride 10 mg 10 mg PO DAILY 09/20/24 09/20/24 History tablet,extended release 24 hr sertraline 50 mg tablet 50 mg PO BID 09/20/24 09/20/24 History trazodone 50 mg tablet 50 mg PO HS 09/20/24 09/20/24 History Patient hx anesthesia problems: none Family hx anesthesia problems: none Results Review: All pre-operative results and documents have been reviewed as part of the pre- operative evaluation. [facility] Past Medical History Medical History (Updated 09/24/24 @ 07:10 by Donte Coats DO) History of breast cancer Rheumatoid arthritis ALISSON (obstructive sleep apnea) Pacemaker Hypertension Hyperlipidemia Surgical History Surgical History (Updated 09/24/24 @ 07:10 by Donte Coats DO) History of mastectomy History of hysterectomy Social History Social History Smoking packs per day: 0.2 Smoking cigarettes per day: 4.0 Years smoked: 4 Smoking pack-years: 0.80 Smoking status: Former smoker Tobacco type: cigarettes Smoking end date: 03/01/75 Living arrangements: with family Additional living arrangements comments: HUSB Spiritual care concerns: No Anes - Eval Final PreProcedure Day of Procedure 09/24/24 07:09 Patient weight: morbidly obese Heart: regular rate and rhythm Lungs: clear to auscultation Airway: Mallampati scale class III Neurological: alert and oriented Last oral intake: >/= 8 hours ASA classification: III Emergent: no Anesthetic plan: proceed Anesthesia type and monitoring: general GIVS and standard monitoring Results Review: All pre-operative results and documents have been reviewed as part of the pre- operative evaluation. Informed Consent: The patient's anesthetic plan and its attendant risks and benefits were discussed with the patient/family/POA. Questions were solicited and answers provided to the satisfaction of the patient/family/POA.
[2024-09-24 07:30] VITALS: BP 141/69; PULSE 63; RESP 14; TEMP 36.2; O2SAT 97
[2024-09-24] MEDS: LACTATED RINGERS 1,000 ML 30 ML IV CONT (07:30)
[2024-09-24] MEDS: ceFAZolin 2 GM/D5W 50 ML 2 GM/50 ML BAG IVPB (08:32)
[2024-09-24] MEDS: BUPIVACAINE/EPINEPHRINE 0.5% 30 ML VIAL INFILTRATE (08:47)
[2024-09-24 09:07] VITALS: BP 106/53; PULSE 62; RESP 16; O2SAT 96
--- NOTE | 2024-09-24 09:18 | W.PM.PROC2 ---
Procedure Note - Detailed Date of Procedure 09/24/24 Pre-op Diagnosis urge incontinence Post-op Diagnosis Same Procedure Performed Implantation of sacral lead 76065 Placement of implantable pulse generator 90066 Complex neurostimulator programming impedance check 42654 Surgeon Adam Cat MD Anesthesia MAC and Local Indications This is a patient with refractory urge urinary incontinence. They have undergone a successful trial of sacral nerve stimulation. They present today for permanent implantation. They understand the risks of bleeding, infection, decreased efficacy, need for revision and battery changes. They agree to proceed Findings See dictated Description of Procedure They were correctly identified and informed consent was obtained. There brought to the operating room. There placed in the prone position. There given appropriate perioperative antibiotics. A time-out performed. I used fluoroscopy to darnell out my sacral landmarks in the AP and the lateral orientation. I anesthetized the skin. I entered the S3 foramen. I monitored the needle with fluoroscopy. I got appropriate Alexi and toe response at a low threshold. I made a skin mena. I placed a stylet. I placed the lead introducer sheath. I thinned placed and deployed to my lead. I got appropriate responses again at a low threshold. I marked out the site of the pulse generator. I anesthetized the skin and made that incision. I created a subcutaneous pocket to house the pulse generator. I tunneled the lead towards this pocket. Appropriate connections were made between the lead and the battery. It was placed in the pocket. It was programmed and impedances were checked and found to be normal. I irrigated out all wounds. I ensured hemostasis. I closed the subcutaneous tissues with 2 Vicryl. I closed the skin with 4 0 Vicryl. Glue was applied. There then awakened and transferred to the PACU in stable condition. Implants Sacral neurostimulator Estimated Blood Loss 5 Drains No Packing No Pathology None sent Condition Stable Disposition PACU
[2024-09-24] MEDS: oxyCODONE HCL (*CRX) 5 MG TAB IR PO (09:33)
[2024-09-24 09:35] VITALS: BP 120/55; PULSE 66; RESP 16; O2SAT 96
[2024-09-24 10:00] VITALS: BP 134/51; PULSE 66; RESP 16
[2024-09-24 10:30] VITALS: BP 115/80; PULSE 65; RESP 16
== END 2024-09-24 10:47 | disposition home or self-care (01) ==
PROVIDERS: Visit Provider Urology
PROC: (CPT 64561; principal; 2024-09-24 08:45)
DX: N39.41 Urge incontinence (principal); E78.5 Hyperlipidemia, unspecified; I10 Essential (primary) hypertension; G47.33 Obstructive sleep apnea (adult) (pediatric); M06.9 Rheumatoid arthritis, unspecified; E66.01 Morbid (severe) obesity due to excess calories; Z68.41 Body mass index [BMI] 40.0-44.9, adult; Z79.83 Long term (current) use of bisphosphonates; Z98.890 Other specified postprocedural states; Z95.0 Presence of cardiac pacemaker; Z87.891 Personal history of nicotine dependence; Z85.3 Personal history of malignant neoplasm of breast
CPT/HCPCS: 64561; 64590; 99199; A9270; C1767; C1778; C1787; J0690; J1100; J2003; J2371; J2405; J2704; J3010; J7120